=== PATIENT | female | born 1960 | race Caucasian/White ===

== ENCOUNTER → 2016-05-30 | Outpatient (CLI) | payer OTHER ==
[~2016-05-30] MED LIST: ATV2 PO; CYAN10004 PO; GABA600T PO; HYDR12.55 PO; LOSA50TA6 PO; NAPR1TAB9 PO; ONDA4TAB46 PO; POTA20TA13 PO; RIZA10TA18 PO
[2016-05-30 17:14] LABS: BLOOD UREA NITROGEN 11 mg/dl (7-18); BUN/CREATININE RATIO 12.5 (10-20); CALCIUM 8.7 mg/dl (8.5-10.1); CARBON DIOXIDE 28 mmol/L (21-32); CHLORIDE 106 mmol/L (98-107); CREATININE 0.85 mg/dl (0.60-1.20); GLUCOSE 129 mg/dl (70-99); POTASSIUM 3.6 mmol/L (3.5-5.1); SODIUM 143 mmol/L (136-145)
== END | disposition home or self-care (01) ==
LOC: C.LABBC 13:31
PROVIDERS: ATTEND Family Medicine
DX: E87.6 Hypokalemia (principal)

== ENCOUNTER 2016-11-06 08:42 | Emergency (ER) | payer OTHER ==
[~2016-11-06] VITALS: Ht 162.6 cm; Wt 57.3 kg
[~2016-11-06 08:42] MED LIST changes: -POTA20TA13 PO
[2016-11-06 08:45] VITALS: TEMP 36.3; Ht 162.6 cm; Wt 57.3 kg
[2016-11-06] MEDS ORDERED: KETOROLAC TROMETHAMINE 30 MG/ML VIAL IV STA (09:03)
[2016-11-06] MEDS ORDERED: SODIUM CHLORIDE 0.9% 1000ML 1,000 ML IV STA (09:03)
[2016-11-06] MEDS ORDERED: PROCHLORPERAZINE 5 MG/ML 2 ML VIAL IV STA (09:03)
[2016-11-06] MEDS ORDERED: DiphenhydrAMINE HCL 50 MG/ML VIAL IV STA (09:03)
--- NOTE | 2016-11-06 09:13 | EMERGENCY ROOM VISIT NOTE ---
History Report prepared by Batsheva: Tiffany Sherwood Under the Supervision of: Dr. Jaymie Aguiar M.D. First contact with patient: 08:49 Chief Complaint: HEADACHE Stated Complaint: MIGRAINE, VOMITING History of Present Illness The patient is a 56 year old female who presents to the Emergency Room with complaints of a worsening headache beginning early this morning. The patient states that she has a history of migraines. She is experiencing nausea and vomiting. The patient has had 3 episodes of vomiting today. She has been experiencing dizziness for the past month and is worsened when laying on her back or left side. She has been diagnosed with positional vertigo. The patient states that this migraine is worse that her typical migraine, she has not had one this severe in about a year. She is experiencing noise and light sensitivity. The patient states one of the differences with this migraine is pain not only in the back of her head but also the front. This is different than her usual symptoms. She states that she has been able to control her migraines with Aleve. The patient denies weakness to extremities. The patient has a follow up appointment with Dr. Perez - Neurology tomorrow. Source of History: patient Onset: early this morning Position: other (global) Quality: other (headache) Timing: worsening Associated Symptoms: + nausea, + vomiting, No weakness Note: The patient is experiencing noise sensitivity, light sensitivity, and dizziness. Review of Systems See HPI for pertinent positives & negatives. A total of 10 systems reviewed and were otherwise negative. Past Medical & Surgical Medical Problems: (1) Chest pain (2) Hypertension (3) Increased urinary frequency (4) Migraine (5) Migraine (6) Migraine (7) Migraine headache (8) Migraine headache (9) Pain (10) Sinus congestion (11) Sinus congestion (12) Sinus problem Surgical Problems: (1) History of cholecystectomy Family History Diabetes mellitus FH: cancer FH: gallbladder disease FH: heart disease Hypertension Kidney disease Kidney stones Social History Smoking Status: Never Smoker Alcohol Use: none Drug Use: none Marital Status: Housing Status: lives alone Occupation Status: employed Current/Historical Medications Scheduled Cyanocobalamin (Vitamin B-12 1000 Mcg), 1,000 MCG PO DAILY Gabapentin (Neurontin), 600 MG PO TID Hydrochlorothiazide (Hydrochlorothiazide), 12.5 MG PO QAM Lorazepam (Lorazepam), 2 MG PO HS Losartan Potassium (Cozaar), 50 MG PO QAM Potassium Chloride Microencaps (Potassium Chloride Er), 20 MEQ PO DAILY Scheduled PRN Naproxen (Aleve), 220 MG PO BID PRN for Headache Ondansetron Hcl (Zofran), 4 MG PO Q6 PRN for Nausea Rizatriptan Benzoate (Maxalt), 10 MG PO UD PRN for Migraine Allergies Coded Allergies: Diphenhydramine (Verified Allergy, Intermediate, HEART RACES, 11/06/16) Chocolate (Verified Allergy, Unknown, HIVES, 11/06/16) Tetracycline (Verified Allergy, Unknown, HIVES, 11/06/16) Codeine (Verified Adverse Reaction, Mild, HEADACHES, 11/06/16) Physical Exam Vital Signs Date Time Temp Pulse Resp B/P (MAP) Pulse Ox O2 Delivery O2 Flow Rate FiO2 11/06/16 12:08 62 20 130/80 98 11/06/16 09:51 68 15 140/90 97 Room Air 11/06/16 09:32 67 11/06/16 08:45 36.3 76 20 154/88 97 Room Air Physical Exam Vital signs reviewed. General: Well-appearing female, in no significant distress. HEENT: No meningeal signs. No scleral icterus, PERRLA, neck supple. Atraumatic. Cardiovascular: Regular rate and rhythm, no extra sounds. Pulmonary: Clear to auscultation bilaterally, normal work of breathing. Abdomen: Soft, nontender, nondistended, positive bowel sounds. Musculoskeletal: Atraumatic, no peripheral edema. Neurologic: Patient awake alert and oriented x 3, full strength in all 4 extremities. Cranial nerves 2 through 12 grossly intact. Skin: Warm, dry, no rash Medical Decision & Procedures Laboratory Results 11/06/16 09:25 Red Blood Count 4.33, Mean Corpuscular Volume 84.3, Mean Corpuscular Hemoglobin 29.3, Mean Corpuscular Hemoglobin Concent 34.8, Mean Platelet Volume 9.3, Neutrophils (%) (Auto) 72.0, Lymphocytes (%) (Auto) 20.9, Monocytes (%) (Auto) 5.0, Eosinophils (%) (Auto) 1.3, Basophils (%) (Auto) 0.5, Neutrophils # (Auto) 2.72, Lymphocytes # (Auto) 0.79, Monocytes # (Auto) 0.19, Eosinophils # (Auto) 0.05, Basophils # (Auto) 0.02 11/06/16 09:25 Test 11/06/16 09:25 White Blood Count 3.78 K/uL (4.8-10.8) Red Blood Count 4.33 M/uL (4.2-5.4) Hemoglobin 12.7 g/dL (12.0-16.0) Hematocrit 36.5 % (37-47) Mean Corpuscular Volume 84.3 fL (80-100) Mean Corpuscular Hemoglobin 29.3 pg (25-34) Mean Corpuscular Hemoglobin Concent 34.8 g/dl (32-36) Platelet Count 166 K/uL (130-400) Mean Platelet Volume 9.3 fL (7.4-10.4) Neutrophils (%) (Auto) 72.0 % Lymphocytes (%) (Auto) 20.9 % Monocytes (%) (Auto) 5.0 % Eosinophils (%) (Auto) 1.3 % Basophils (%) (Auto) 0.5 % Neutrophils # (Auto) 2.72 K/uL (1.4-6.5) Lymphocytes # (Auto) 0.79 K/uL (1.2-3.4) Monocytes # (Auto) 0.19 K/uL (0.11-0.59) Eosinophils # (Auto) 0.05 K/uL (0-0.5) Basophils # (Auto) 0.02 K/uL (0-0.2) RDW Standard Deviation 40.3 fL (36.4-46.3) RDW Coefficient of Variation 13.2 % (11.5-14.5) Immature Granulocyte % (Auto) 0.3 % Immature Granulocyte # (Auto) 0.01 K/uL (0.00-0.02) Anion Gap 6.0 mmol/L (3-11) Est Creatinine Clear Calc Drug Dose 74.6 ml/min Estimated GFR () 108.8 Estimated GFR (Non- 93.9 BUN/Creatinine Ratio 11.3 (10-20) Calcium Level 9.0 mg/dl (8.5-10.1) Total Bilirubin 0.6 mg/dl (0.2-1) Direct Bilirubin mg/dl (0-0.2) Aspartate Amino Transf (AST/SGOT) 25 U/L (15-37) Alanine Aminotransferase (ALT/SGPT) 22 U/L (12-78) Alkaline Phosphatase 50 U/L (45-117) Total Protein 7.2 gm/dl (6.4-8.2) Albumin 3.7 gm/dl (3.4-5.0) Chemistry Specimen Hemolysis Laboratory results per my review. Medications Administered Medications (Trade) Dose Ordered Sig/Rose Marie Route Start Time Stop Time Status Last Admin Dose Admin Sodium Chloride 1,000 ml @ 999 mls/hr Q1H1M STAT IV 11/06/16 09:03 11/06/16 10:03 DC 11/06/16 09:42 999 MLS/HR Prochlorperazine Edisylate (Compazine Inj) 10 mg NOW STAT IV 11/06/16 09:03 11/06/16 09:05 DC 11/06/16 09:36 10 MG Diphenhydramine HCl (Benadryl Inj) 25 mg NOW STAT IV 11/06/16 09:03 11/06/16 09:05 DC 11/06/16 09:35 25 MG Ketorolac Tromethamine (Toradol Inj) 30 mg NOW STAT IV 11/06/16 09:03 11/06/16 09:05 DC 11/06/16 09:35 30 MG Acetaminophen/ Hydrocodone Bitart ([place] 5/325 Tab) 1 tab NOW STAT PO 11/06/16 11:26 11/06/16 11:27 DC 11/06/16 11:34 1 TAB ED Course 0902: Past medical records reviewed. The patient was evaluated in room B6. A complete history and physical examination was performed. 0903: Toradol Inj 30 mg IV, Benadryl Inj 25 mg IV, Compazine Inj 10 mg IV, Sodium Chloride 1,000 ml @ 999 mls/hr IV. 1115: I checked on the patient and she is feeling better. 1126: L[place] 5/325 Tab 1 tab PO. 1156: Upon reevaluation, the patient appeared to have improvement of her symptoms. I discussed findings with her. She verbalized agreement of the treatment plan. She was discharged home. Medical Decision Differential diagnosis: Etiologies such as migraine headache, meningitis, sinusitis, CO exposure, ICH, SAH, infection, tumor, headache, sinus thrombosis, arterial dissection, as well as others were entertained. Medication Reconciliation: I attest that I have personally reviewed the patient' s current medication list. Blood Pressure Screening: Patient was found to have a slightly elevated blood pressure due to circumstances. I do not believe that the patient requires hypertension monitoring. This patient was evaluated and appeared to be in no significant distress. IV access was obtained and laboratory work was drawn. The patient was medicated with IV Toradol, IV Compazine and IV Benadryl. She was hydrated with normal saline solution. Patient feels as though this is a standard migraine for her. She did have some improvement with the above regimen. The patient ambulated to the bathroom and stated that her pain seemed to be returning. She was given one [place]orton tablet and discharged in care of her . She follows that she did go home and sleep. She is a follow-up appointment with neurology tomorrow. She will return to the ER for worsening of symptoms or any medical concerns. Impression Primary Impression: Migraine headache Scribe Attestation The scribe's documentation has been prepared under my direction and personally reviewed by me in its entirety. I confirm that the note above accurately reflects all work, treatment, procedures, and medical decision making performed by me. Departure Information Dispostion Home / Self-Care Referrals Tee Brown D.O.Int.Med. (PCP) Forms HOME CARE DOCUMENTATION FORM, IMPORTANT VISIT INFORMATION Patient Instructions My [facility] Additional Instructions Diagnosis: Migraine headache Continue your medications as prescribed. Drink plenty of fluids. Follow-up with neurology tomorrow as scheduled. Return to the ER for worsening of symptoms or any medical concerns.
[2016-11-06] MEDS ORDERED: POTA20TA13 PO (09:18)
[2016-11-06 09:39] LABS: BASO % 0.5 %; BASO ABS # 0.02 K/uL (0-0.2); COMPLETE YES; EOS % 1.3 %; HEMATOCRIT 36.5 % (37-47); IG% 0.3 %; LYMPH % 20.9 %; LYMPH ABS # 0.79 K/uL (1.2-3.4); MEAN CELL VOLUME 84.3 fL (80-100); MEAN CORPUSCULAR HEMOGLOBIN 29.3 pg (25-34); MEAN CORPUSCULAR HGB CONC 34.8 g/dl (32-36); MEAN PLATELET VOLUME 9.3 fL (7.4-10.4); PLATELET COUNT 166 K/uL (130-400); RED BLOOD COUNT 4.33 M/uL (4.2-5.4); WHITE BLOOD COUNT 3.78 K/uL (4.8-10.8)
[2016-11-06 10:07] LABS: ALKALINE PHOSPHATASE 50 U/L (45-117); ALT/SGPT 22 U/L (12-78); BLOOD UREA NITROGEN 8 mg/dl (7-18); BUN/CREATININE RATIO 11.3 (10-20); CARBON DIOXIDE 27 mmol/L (21-32); CHLORIDE 107 mmol/L (98-107); CREATININE 0.71 mg/dl (0.60-1.20); GLUCOSE 112 mg/dl (70-99)
[2016-11-06 10:30] LABS: AST/SGOT 25 U/L (15-37); POTASSIUM 3.7 mmol/L (3.5-5.1); SODIUM 144 mmol/L (136-145)
[2016-11-06] MEDS ORDERED: HYDROCODONE/ACETAMOPHEN 5/325MG TAB PO STA (11:26)
[2016-11-06 12:08] VITALS: BP 130/80; PULSE 62; O2SAT 98
[2017-03-20] MEDS ORDERED: ZNTT/150 PO (13:31)
== END 2016-11-06 12:08 | disposition home or self-care (01) ==
LOC: C.EDB 08:43
DX: G43.909 Migraine, unspecified, not intractable, without status migrainosus (principal); I10 Essential (primary) hypertension; Z83.3 Family history of diabetes mellitus; Z82.49 Family history of ischemic heart disease and other diseases of the circulatory system

== ENCOUNTER → 2017-03-26 | Outpatient (CLI) | payer OTHER ==
[~2017-03-26] MED LIST changes: -CYAN10004 PO; -NAPR1TAB9 PO; +POTA20TA13 PO; +ZNTT/150 PO
--- NOTE | 2017-03-26 15:19 | MAMMOGRAPHY REPORT ---
BILATERAL DIGITAL SCREENING MAMMOGRAM TOMOSYNTHESIS WITH CAD: 03/26/2017 CLINICAL HISTORY: Routine screening. Patient has no complaints. TECHNIQUE: Breast tomosynthesis in addition to standard 2D mammography was performed. Current study was also evaluated with a Computer Aided Detection (CAD) system. COMPARISON: Comparison is made to exams dated: 03/25/2016 mammogram, 10/04/2014 mammogram, 03/24/2015 mammogram, 04/06/2014 ultrasound, 04/06/2014 mammogram, and 03/18/2014 mammogram - [facility]. BREAST COMPOSITION: The tissue of both breasts is heterogeneously dense, which may obscure small mas ses. FINDINGS: No suspicious masses, calcifications, or areas of architectural distortion are noted in ei ther breast. There has been no significant interval change compared to prior exams. IMPRESSION: ACR BI-RADS CATEGORY 1: NEGATIVE There is no mammographic evidence of malignancy. A 1 year screening mammogram is recommended. The pa tient will receive written notification of the results. Approximately 10% of breast cancers are not detected with mammography. A negative mammographic report should not delay biopsy if a clinically suggestive mass is present. Aislinn Cardoza M.D. ah/:03/26/2017 07:37:11 Lining Cementer: Jenny SPAULDING(Stevan)(Maurisio), [facility] letter sent: Normal 1/2 BI-RADS Code: ACR BI-RADS Category 1: Negative
== END | disposition home or self-care (01) ==
LOC: C.MAMM 07:12
PROVIDERS: ATTEND Student in an Organized Health Care Education/Training Program
DX: Z12.31 Encounter for screening mammogram for malignant neoplasm of breast (principal)

== ENCOUNTER 2017-08-26 10:00 | Emergency (ER) | payer OTHER ==
[~2017-08-26] VITALS: Ht 162.6 cm; Wt 54.4 kg
[~2017-08-26 10:00] MED LIST changes: +RANI150T85 PO; -ZNTT/150 PO
[2017-08-26 10:13] VITALS: TEMP 36.9; Ht 162.6 cm; Wt 54.4 kg
[2017-08-26] MEDS ORDERED: DEXAMETHASONE INJ 10 MG in SYRINGE 0 ML IV STA (10:51)
[2017-08-26] MEDS ORDERED: SODIUM CHLORIDE 0.9% 1000ML 1,000 ML IV STA (10:51)
[2017-08-26] MEDS ORDERED: KETOROLAC TROMETHAMINE 30 MG/ML VIAL IV STA (10:51)
[2017-08-26] MEDS ORDERED: PROMETHAZINE HCL INJ 12.5 MG in SODIUM CHLORIDE 0.9% 50ML 50 ML IV STA (10:51)
[2017-08-26] MEDS ORDERED: AMOX875T PO (10:53)
[2017-08-26 11:12] LABS: BASO % 0.2 %; BASO ABS # 0.01 K/uL (0-0.2); EOS % 0.2 %; EOS ABS # 0.01 K/uL (0-0.5); HEMATOCRIT 40.4 % (37-47); HEMOGLOBIN 14.6 g/dL (12.0-16.0); IG# 0.01 K/uL (0.00-0.02); LYMPH % 9.6 %; MEAN CELL VOLUME 82.4 fL (80-100); MEAN CORPUSCULAR HEMOGLOBIN 29.8 pg (25-34); MEAN CORPUSCULAR HGB CONC 36.1 g/dl (32-36); MEAN PLATELET VOLUME 9.3 fL (7.4-10.4); MONO % 2.6 %; MONO ABS # 0.16 K/uL (0.11-0.59); NEUT % 87.2 %; NEUT ABS # 5.43 K/uL (1.4-6.5); PLATELET COUNT 183 K/uL (130-400); RED CELL DISTRIBUTION WIDTH CV 13.3 % (11.5-14.5); RED CELL DISTRIBUTION WIDTH SD 39.7 fL (36.4-46.3); WHITE BLOOD COUNT 6.22 K/uL (4.8-10.8)
[2017-08-26 11:38] LABS: CALCIUM 9.2 mg/dl (8.5-10.1); CREATININE 0.73 mg/dl (0.60-1.20); POTASSIUM 3.7 mmol/L (3.5-5.1)
[2017-08-26] MEDS ORDERED: MoRPHine SULFATE 4 MG/ML 1 ML CARP\\VIAL IV STA (12:12)
--- NOTE | 2017-08-26 13:02 | EMERGENCY ROOM VISIT NOTE ---
History First contact with patient: 10:27 Chief Complaint: HEADACHE Stated Complaint: MIGRAINE,VOMITING History of Present Illness The patient is a 57 year old female who presents to the Emergency Room via private vehicle with complaints of "migraine, vomiting". The patient states that she has a history of migraines, and began with one last night. She states that she has vomited because of this. She took Maxalt 3:00 with minimal relief. She has been vomiting and trying to take other medications without success. She denies any change in vision, numbness, paresthesias, tingling. She rates the overall pain as an 8/10. She notes this is the same headache she has had in the past just worse. She sees her neurologist, Dr. Perez but they cannot see her today. She denies any history of stroke or [place]. Review of Systems A complete 10-point Review of Systems was discussed with the patient, with pertinent positives and negatives listed in the History of Present Illness. All remaining Review of Systems questions can be considered negative unless otherwise specified. Past Medical/Surgical History Medical Problems: (1) Chest pain (2) Hypertension (3) Increased urinary frequency (4) Migraine (5) Migraine (6) Migraine (7) Migraine headache (8) Migraine headache (9) Pain (10) Sinus congestion (11) Sinus congestion (12) Sinus problem Surgical Problems: (1) History of cholecystectomy Family History Diabetes mellitus FH: cancer FH: gallbladder disease FH: heart disease Hypertension Kidney disease Kidney stones Social History Smoking Status: Never Smoker Alcohol Use: none Drug Use: none Marital Status: Housing Status: lives alone Occupation Status: employed Current/Historical Medications Scheduled Amoxicillin & Pot Clavulanate (Augmentin 875-125 mg), 1 TAB PO BID Gabapentin (Neurontin), 600 MG PO TID Lorazepam (Lorazepam), 2 MG PO HS Losartan Potassium (Cozaar), 25 MG PO QAM Ranitidine (Zantac), 150 MG PO BID Scheduled PRN Ondansetron Hcl (Zofran), 4 MG PO Q6 PRN for Nausea Rizatriptan Benzoate (Maxalt), 10 MG PO UD PRN for Migraine Physical Exam Vital Signs Date Time Temp Pulse Resp B/P (MAP) Pulse Ox O2 Delivery O2 Flow Rate FiO2 08/26/17 13:14 73 16 138/80 97 08/26/17 10:13 36.9 95 18 152/93 96 Room Air Physical Exam VITAL SIGNS - Vital signs and nursing notes were reviewed. Stable. GENERAL - 57-year-old female appearing her stated age who is in no acute distress. Communicates well with provider and answers questions appropriately. SKIN - Without rashes. No meningeal or petechial rash per HEAD - NC/AT. EYES - PERRL with EOMI bilaterally. Sclera anicteric. EARS - No deformities of external structures noted on gross examination bilaterally. External auditory canals without discharge or otorrhea. Tympanic membranes pearly gordon without retraction or bulging. No fluid or purulent material visualized behind the TM. Handle of malleus, umbo, cone of light, pars tensa/flaccid all easily visualized. NOSE - Midline and without cyanosis. No epistaxis or purulent drainage noted. MOUTH/OROPHARYNX - Without perioral cyanosis. Buccal mucosa pink and moist and without leukoplakia. Tongue midline with equal elevation of palate bilaterally. No tonsillar hypertrophy, erythema, or exudates noted. Fair dentition noted. NECK - Neck with FROM. Supple to palpation. No lymphadenopathy noted. No nuchal rigidity. LUNGS - Chest wall symmetric without accessory muscle use, intercostals retractions, or central cyanosis. Normal vesicular breath sounds CTA B/L. No wheezes, rales, or rhonchi appreciated. CARDIAC - RRR with S1/S2. No murmur, rubs, or gallops appreciated. EXTREMITIES - No clubbing or peripheral cyanosis. +5/5 strength noted in UE/LE bilaterally. NEUROLOGIC - Cranial nerves II through XII grossly intact. Sensory intact to light touch throughout. PSYCH - A&O, and cooperates fully with examiner. Pt is very pleasant and interacts well with examiner. Medical Decision & Procedures Laboratory Results 08/26/17 11:03 Red Blood Count 4.90, Mean Corpuscular Volume 82.4, Mean Corpuscular Hemoglobin 29.8, Mean Corpuscular Hemoglobin Concent 36.1, Mean Platelet Volume 9.3, Neutrophils (%) (Auto) 87.2, Lymphocytes (%) (Auto) 9.6, Monocytes (%) (Auto) 2.6, Eosinophils (%) (Auto) 0.2, Basophils (%) (Auto) 0.2, Neutrophils # (Auto) 5.43, Lymphocytes # (Auto) 0.60, Monocytes # (Auto) 0.16, Eosinophils # (Auto) 0.01, Basophils # (Auto) 0.01 08/26/17 11:03 Test 08/26/17 11:03 White Blood Count 6.22 K/uL (4.8-10.8) Red Blood Count 4.90 M/uL (4.2-5.4) Hemoglobin 14.6 g/dL (12.0-16.0) Hematocrit 40.4 % (37-47) Mean Corpuscular Volume 82.4 fL (80-100) Mean Corpuscular Hemoglobin 29.8 pg (25-34) Mean Corpuscular Hemoglobin Concent 36.1 g/dl (32-36) Platelet Count 183 K/uL (130-400) Mean Platelet Volume 9.3 fL (7.4-10.4) Neutrophils (%) (Auto) 87.2 % Lymphocytes (%) (Auto) 9.6 % Monocytes (%) (Auto) 2.6 % Eosinophils (%) (Auto) 0.2 % Basophils (%) (Auto) 0.2 % Neutrophils # (Auto) 5.43 K/uL (1.4-6.5) Lymphocytes # (Auto) 0.60 K/uL (1.2-3.4) Monocytes # (Auto) 0.16 K/uL (0.11-0.59) Eosinophils # (Auto) 0.01 K/uL (0-0.5) Basophils # (Auto) 0.01 K/uL (0-0.2) RDW Standard Deviation 39.7 fL (36.4-46.3) RDW Coefficient of Variation 13.3 % (11.5-14.5) Immature Granulocyte % (Auto) 0.2 % Immature Granulocyte # (Auto) 0.01 K/uL (0.00-0.02) Anion Gap 5.0 mmol/L (3-11) Est Creatinine Clear Calc Drug Dose 71.3 ml/min Estimated GFR () 104.5 Estimated GFR (Non- 90.1 BUN/Creatinine Ratio 15.1 (10-20) Calcium Level 9.2 mg/dl (8.5-10.1) Medications Administered Medications (Trade) Dose Ordered Sig/Rose Marie Route Start Time Stop Time Status Last Admin Dose Admin Ketorolac Tromethamine (Toradol Inj) 30 mg NOW STAT IV 08/26/17 10:51 08/26/17 10:52 DC 08/26/17 11:21 30 MG Promethazine HCl 12.5 mg/Sodium Chloride 50.5 ml @ 204 mls/hr NOW STAT IV 08/26/17 10:51 08/26/17 11:05 DC 08/26/17 11:22 204 MLS/HR Dexamethasone Sodium Phosphate 10 mg/Syringe 2.5 ml @ 1 mls/min NOW STAT IV 08/26/17 10:51 08/26/17 10:53 DC 08/26/17 10:40 1 MLS/MIN Sodium Chloride 1,000 ml @ 999 mls/hr Q1H1M STAT IV 08/26/17 10:51 08/26/17 11:51 DC 08/26/17 11:28 999 MLS/HR Morphine Sulfate (MoRPHine SULFATE INJ) 4 mg NOW STAT IV 08/26/17 12:12 08/26/17 12:14 DC 08/26/17 12:26 4 MG Medical Decision Patient was seen and evaluated as above in room C 10. Review was performed of nursing notes and vital signs. After obtaining a thorough history and physical examination the above work up was performed. CBC and PRP reveal no emergent process. Most recent MRI was reviewed. IV access was established. She was given Toradol, Phenergan, Decadron and fluids. She was reevaluated and feeling slightly better. She was then given 4 mg of morphine IV. She was feeling much better. The narcotic was chosen secondary to the previous medications not providing much relief as well as her underlying allergies. This was also chosen after reviewing her previous visits. She is to call her family doctor/ neurologist to schedule follow-up. She is to return with worsening. She was offered lumbar puncture and declined. I do not suspect meningitis or encephalitis. I suspect this is likely an acute exacerbation of her chronic underlying migraine. The patient was educated upon management, had questions answered prior to discharge, and was discharged home in good condition. In the evaluation and treatment of this patient, the following differential diagnoses were considered: Migraine Headache, Intracranial Hemorrhage, Subdural Hematoma, Subarachnoid Hemorrhage, Cerebral Aneurysm, Temporal/Giant Cell Arteritis, Tension Headache, Meningitis, Encephalitis, or Hydrocephalus. Impression Primary Impression: Headache Departure Information Dispostion Home / Self-Care Condition GOOD Referrals Gilma Lan D.O. (PCP) Patient Instructions My [facility] Additional Instructions You have been treated in the Emergency Department for a Headache. You have received pain medicine in the emergency department which impairs your ability to operate a vehicle. It is illegal for you to drive after receiving these medicines. Please continue your regular medications. You should relax in a quiet, dark place for the rest of the day. Avoid any possible triggers including: cigarette smoke, caffeine, nicotine, chocolate, wine, beer, loud noises or music, or bright lights. You should schedule a follow-up appointment in 2-3 days with your Primary Care Provider or established Neurologist for further evaluation and treatment of your Headache. Return to the Emergency Department if your current symptoms worsen despite treatment course outlined above, or if you develop any of the following symptoms : intractable pain despite aforementioned treatment course, visual disturbances , loss of vision, unilateral weakness or facial drooping, slurring of speech, loss of coordination, or loss of consciousness.
[2017-08-26 13:14] VITALS: BP 138/80; PULSE 73; O2SAT 97
== END 2017-08-26 13:15 | disposition home or self-care (01) ==
LOC: C.EDB 10:01 → C.EDC 13:15
DX: R51 Headache (principal); I10 Essential (primary) hypertension

== ENCOUNTER 2018-06-12 12:15 | Inpatient (IN) ==
--- NOTE | 2018-06-11 08:35 | Anesthesiology Consultation ---
Date of Service June 11, 2018 Assessment & Plan (1) Encounter for pre-operative examination: Chart Review Chart Review: Acceptable Risk for Surgery and Patient NOT seen in Pre Admission Testing History Surgery Operation Date: 06/12/18 07:00 Proposed Procedures p Left Tibial Plateau Fracture Open Reduction Internal Fixation - Josh Domínguez DO Height/Weight Height: 5 ft 4 in Weight: 53.5 kg (BMI 20.2) Allergies Allergy/AdvReac Type Severity Reaction Status Date / Time diphenhydramine Allergy Intermediate HEART RACES Verified 06/05/18 09:33 chocolate flavor Allergy Unknown HIVES Verified 06/05/18 09:33 oxycodone Allergy Unknown hives Verified 06/06/18 10:26 tetracycline Allergy Unknown HIVES Verified 06/05/18 09:33 codeine AdvReac Mild HEADACHES Verified 06/05/18 09:33 Medications Home Medications Medication Instructions Recorded Confirmed Last Taken gabapentin 600 mg PO TID 06/05/18 06/05/18 06/05/18 hydrocodone-acetaminophen [[place]] 1 tab PO Q6H PRN #30 tab 06/05/18 Unknown lorazepam 2 mg PO HS 06/05/18 06/05/18 06/04/18 losartan [Cozaar] 25 mg PO QAM 06/05/18 06/05/18 06/05/18 ondansetron HCl 4 mg PO Q6 PRN 06/05/18 06/05/18 Unknown ranitidine HCl 150 mg PO DAILY PRN 06/05/18 06/05/18 Unknown rizatriptan 10 mg PO UD PRN 06/05/18 06/05/18 Unknown Past Medical History Medical History Osteoporosis (Chronic) History of benign schwannoma (Resolved) s/p b/l brachial plexus surgery for removal Insomnia (Chronic) Hypertension (Chronic) Migraine (Chronic) Ulnar nerve disease (Resolved) Tibial plateau fracture From slip and fall on ice 06/05. Seen at [facility] ED. 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 Nonspecific ST abnormality. Laboratory Results Laboratory Tests 06/06/18 06/06/18 06/06/18 07:10 07:10 07:10 WBC 4.85 Hgb 12.2 Hct 35.2 L Plt Count 147 PT 11.4 INR 1.1 APTT 26.6 Sodium 138 Potassium 3.4 L Chloride 103 Carbon Dioxide 27 BUN 13 Creatinine 0.67 Glucose 88
[~2018-06-12 12:15] MED LIST changes: -ATV2 PO; +CEFAZOLIN 2000MG 2,000 MG/15 ML SYR IV SCH; -GABA600T PO; -HYDR12.55 PO; -LOSA50TA6 PO; +LR 15ML/HR IV SCH; +LR 60ML/HR IV SCH; -ONDA4TAB46 PO; -POTA20TA13 PO; -RANI150T85 PO; -RIZA10TA18 PO
--- NOTE | 2018-06-12 13:29 | History & Physical Bridge Note ---
Date of Service June 12, 2018 History & Physical Bridge Note I have examined the patient, reviewed the History & Physical and in the interval since the performance of the History & Physical I have noted the following changes of clinical significance: no changes noted
--- NOTE | 2018-06-12 13:35 | History & Physical Report ---
Date of Service June 12, 2018 Assessment & Plan (1) Fracture of tibial plateau, closed: We will proceed with open reduction internal fixation of the left tibial plateau. Postoperatively she will be placed in a knee immobilizer and kept overnight for medical observation. She will be seen by physical therapy tomorrow. I will put her on aspirin for DVT prophylaxis. She will likely be nonweightbearing for close to 3 months. Encounter type: initial encounter Fracture healing: Laterality : left Qualified Code(s): S82.142A - Displaced bicondylar fracture of left tibia, initial encounter for closed fracture Present on Admission?: Yes History of Present Illness Primary Care Provider: Gilma Summers is a pleasant 58-year-old female who slipped and fell on the ice about a week ago. She had a twisting injury to her left leg. She went to the emergency room and radiographs demonstrated a depressed left lateral tibial plateau fracture. She was placed in a splint in the emergency room presented my office. He got a CAT scan of her left leg which showed a centimeter of depression. After discussions in the office she elected to proceed with a open reduction and internal fixation of the left proximal tibia Allergies Allergy/AdvReac Type Severity Reaction Status Date / Time chocolate flavor Allergy Severe HIVES Verified 06/12/18 12:55 diphenhydramine Allergy Intermediate CHEST Verified 06/12/18 12:55 PAIN, TACHYCARDIA oxycodone Allergy Intermediate hives Verified 06/12/18 12:55 tetracycline Allergy Mild HIVES Verified 06/12/18 12:55 acetaminophen [From [facility]] AdvReac Intermediate ITCHING, Verified 06/12/18 12:55 WELTS hydrocodone [From [facility]] AdvReac Intermediate ITCHING, Verified 06/12/18 12:55 WELTS codeine AdvReac Mild HEADACHES Verified 06/12/18 12:55 latex AdvReac Mild redness/itching/localized Verified 06/12/18 12:55 swelling Home Medications Home Medications Medication Instructions Recorded Confirmed Type gabapentin 600 mg PO TID 06/05/18 06/12/18 History hydrocodone-acetaminophen [[facility]] 1 tab PO Q6H PRN #30 tab 06/05/18 06/12/18 Rx lorazepam 2 mg PO HS 06/05/18 06/12/18 History losartan [Cozaar] 25 mg PO QAM 06/05/18 06/12/18 History ondansetron HCl 4 mg PO Q6 PRN 06/05/18 06/12/18 History ranitidine HCl 150 mg PO DAILY PRN 06/05/18 06/12/18 History rizatriptan 10 mg PO UD PRN 06/05/18 06/12/18 History Past Med/Surg History Surgical History History of appendectomy (Resolved) History of total hysterectomy (Resolved) History of decompression of ulnar nerve (Chronic) x 3 History of cholecystectomy (Resolved) History of surgery 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 Other Information That Helps Us Care for You: No Feels Safe at Home: Yes Safety Concerns: Feels Safe At This Time Smoking Status: Never smoker Do You Dip or Chew Tobacco: No Second Hand Exposure: No Tobacco Cessation Education Requested by Patient: No Hx Alcohol Use: No Hx Substance Use: No Beliefs That Will Affect Care: None Preferred Language: Yi Communication Ability: Effective Camp Advisor Required: No Review of Systems All systems reviewed & are unremarkable except as noted in HPI & below Physical Exam 2 Vital Signs (Past 24 Hours): Last Vital Signs Temp 36.8 C 06/12/18 12:35 Pulse 95 H 06/12/18 12:35 Resp 16 06/12/18 12:35 BP 168/97 H 06/12/18 12:35 Pulse Ox 96 06/12/18 12:35 Musculoskeletal: On physical examination of the left leg she does have a slight valgus deformity. She is a little bit of instability with varus stress testing. She is active dorsiflexion and plantarflexion of her left ankle. Sensations intact. Results & Data Diagnostic Findings X-rays of the left leg do show a deep depressed left lateral tibial plateau fracture. There is a slight valgus angulation. CT scan of the left leg shows a centimeter of depression mostly in the central aspect of the lateral tibial plateau. Medications Administered Lactated Ringer's (Lr) 1,000 mls @ 60 mls/hr IV .[id number] ELLEN Stop: 06/12/18 22:39 Last Admin: 06/12/18 13:16 Dose: 60 mls/hr Lactated Ringer's (Lr) 1,000 mls @ 15 mls/hr IV .Q24H [facility] Stop: 06/13/18 05:59 Last Admin: 06/12/18 13:16 Dose: Not Given
[2018-06-12] MEDS ORDERED: MIDAZOLAM HCL 1 MG/ML 2ML VIAL ONE (14:13)
[2018-06-12] MEDS ORDERED: fentaNYL citrate 100 MCG/2 ML VIAL ONE (14:13)
[2018-06-12] MEDS ORDERED: BACITRACIN INJ 50,000 UNIT VIAL ONE (14:35)
[2018-06-12] MEDS ORDERED: BUPIVACAINE/EPINEPHRINE 0.5% MPF 1:200,000 30 ML VIAL ONE ×2 (14:35→15:11)
[2018-06-12] MEDS ORDERED: DEXAMETHASONE SOD INJ 4 MG/ML VIAL ONE (15:12)
[2018-06-12] MEDS ORDERED: BUPIVACAINE 0.25% 30 ML VIAL ONE (15:48)
[2018-06-12] MEDS ORDERED: ONDANSETRON INJ 2 MG/ML 2 ML VIAL ONE (16:16)
[2018-06-12] MEDS ORDERED: LIDOCAINE HCL 2% 2 ML VIAL/AMP(20MG/ML) INFIL ONE (16:16)
[2018-06-12] MEDS ORDERED: PROPOFOL IV EMULSION 10 MG/ML 20 ML VIAL IV ONE (16:16)
[2018-06-12] MEDS ORDERED: ONDANSETRON INJ 2 MG/ML 2 ML VIAL IV PRN (16:33)
[2018-06-12] MEDS ORDERED: ePHEDrine sulfate 50 MG/ML AMP IV PRN (16:33)
[2018-06-12] MEDS ORDERED: PROMETHAZINE HCL 6.25 MG in SODIUM CHLORIDE 0.9% 50 ML IV PRN (16:33)
[2018-06-12] MEDS ORDERED: ATROPINE SULFATE 0.1 MG/ML 10ML SYR IV PRN (16:33)
[2018-06-12] MEDS ORDERED: PHENYLEPHRINE HCL 10 MG/ML VIAL ONE (16:37)
[2018-06-12] MEDS ORDERED: KETOROLAC 30 MG/ML VIAL ONE (16:56)
--- NOTE | 2018-06-12 17:08 | Fluoroscopy Report ---
FL knee LT 1 or 2V CLINICAL HISTORY: LEFT TIBIAL PLATEAU FX ORIF COMPARISON STUDY: 06/05/2018 FLUOROSCOPY TIME: 40 seconds NUMBER OF FLUOROSCOPIC IMAGES: 3 FINDINGS: Findings consistent with plate and pin fixation of the proximal tibia. Bony alignment appea rs anatomic. IMPRESSION: Image intensifier assistance for open reduction internal fixation of the tibial fracture. Alignment is anatomic. The above report was generated using voice recognition software. It may contain grammatical, syntax or spelling errors. Electronically signed by: Landen Washington M.D. 06/12/2018 5:07 PM
--- NOTE | 2018-06-12 17:14 | Operative Report ---
Post Operative Report Pre & Post Diagnosis Operation Date: 06/12/18 07:00 Pre-Op Diagnosis: Left Tibial Plateau Fracture Post-Op Diagnosis: Left Tibial Plateau Fracture Procedure Operation Date: 06/12/18 07:00 Actual Procedures p Left Tibial Plateau Fracture Open Reduction Internal Fixation with bone grafting (Left) - Josh Domínguez DO Surgeon Josh Domínguez DO Cruise Director Josh Farias PAC Estimated Blood Loss 20 Findings Consistent with Post-Op Diagnosis Specimens None Complications none Disposition Disposition: Recovery Room Indications Melina is a pleasant 58-year-old female who fell on the ice about a week ago. She had a twisting injury to her knee. She went to the emergency room and radiographs demonstrated a depressed tibial plateau fracture. After discussions in the office she elected to proceed with open reduction and internal fixation. Description of Procedure On June 12, 2018 she arrived at [facility] for the above procedure. She was seen in the preoperative holding area and the operative extremity was identified and signed. She was given a preoperative antibiotic and a regional anesthetic. She was then taken back to the operating room and laid on table in supine position. She was put on general anesthesia. The left knee was prepped and draped in sterile fashion. A timeout was done. The patient and the operative extremity was properly identified. A lateral curvilinear incision was made over the fracture site. Dissection was taken down through the fascia and the anterior compartment was elevated off the tibial plateau. An arthrotomy was done. A large hemarthrosis was evacuated. The lateral meniscus was elevated superiorly and I was able to get a good look at the fracture. The plateau was depressed about 1.5 cm. An elevator was used to elevate the tibial plateau anatomically. I was able to visualize anatomic reduction. The defect was then packed with cancellus chips and DBX putty. This gave good structural support. A Synthes 4-hole proximal tibial locking plate was then applied. Screws were placed both proximally and distally. The length of the screws were checked under fluoroscopy. I was happy with the overall stability of the construct. Final fluoroscopic images showed anatomic alignment. The wound was then irrigated and surrounding soft tissues were injected with 30 cc of Marcaine. The fascia was closed with #1 Vicryl. Skin was closed with 2-0 Vicryl and kathryn. She was then placed in a soft compressive dressing and a knee immobilizer. She was then extubated and transferred to [facility]. She was taken to the postanesthesia care unit in stable condition. She tolerated the procedure well. I attest to the content of the Intraoperative Record and any orders documented therein. Any exceptions are noted below.
[2018-06-12] MEDS: fentaNYL citrate 100 MCG/2 ML VIAL IV PRN ×4 (17:32→17:50)
[2018-06-12] MEDS: HYDROmorphone INJ 2 MG/ML SYR/VIAL IV PRN ×2 (18:07→18:12)
--- NOTE | 2018-06-12 18:09 | Anesthesiology Progress Note ---
Date of Service June 12, 2018 Anesthesia Post Procedure Vital Signs Vital Signs: Temp Pulse Pulse Resp BP BP Pulse Ox 06/12/18 18:00 70 9 L 161/96 H 99 06/12/18 17:56 62 7 L 152/82 H 99 06/12/18 17:55 73 12 99 06/12/18 17:51 84 15 161/83 H 99 06/12/18 17:50 82 20 99 06/12/18 17:46 73 13 153/86 H 98 06/12/18 17:45 75 9 L 99 06/12/18 17:41 75 7 L 161/93 H 99 06/12/18 17:40 77 14 100 06/12/18 17:36 76 12 162/89 H 100 06/12/18 17:35 79 18 100 06/12/18 17:31 83 19 158/88 H 99 06/12/18 17:30 80 17 100 06/12/18 17:26 96 H 13 103/88 100 06/12/18 17:25 94 H 15 100 06/12/18 17:22 37.2 C 104 H 89 17 150/92 H 150/92 H 98 06/12/18 12:35 36.8 C 95 H 16 168/97 H 96 Pain Intensity Left Knee: Pain Intensity: 9 Notes Mental Status: alert / awake / arousable Patient Amnestic to Procedure: Yes Nausea / Vomiting: adequately controlled Pain: adequately controlled Airway Patency, RR, SpO2: stable & adequate BP & HR: stable & adequate Hydration State: stable & adequate Anesthetic Complications: no major complications apparent
[2018-06-12] MEDS ORDERED: MAGNESIUM HYDROXIDE SUSP 30 ML UDC PO PRN (18:48)
[2018-06-12] MEDS ORDERED: METOCLOPRAMIDE HCL INJ 5 MG/ML 2 ML VIAL IV PRN (18:48)
[2018-06-12] MEDS ORDERED: RIZATRIPTAN BENZOATE 10 MG TAB PO PRN (18:48)
[2018-06-12] MEDS ORDERED: NALOXONE HCL 0.4 MG/1 ML VIAL/CARP IV PRN (18:48)
[2018-06-12] MEDS ORDERED: HYDROmorphone INJ 0.5 MG/0.5 ML SYR IV PRN (18:48)
[2018-06-12] MEDS ORDERED: BISACODYL 10 MG SUPP PR PRN (18:48)
[2018-06-12] MEDS ORDERED: SODIUM CHLORIDE 0.9% 1000ML 1,000 ML IV SCH (18:48)
[2018-06-12] MEDS: ONDANSETRON INJ 2 MG/ML 2 ML VIAL IV PRN (19:32)
[2018-06-12] MEDS: KETOROLAC 30 MG/ML VIAL IV SCH (20:26)
[2018-06-12] MEDS: DOCUSATE SODIUM 100 MG CAP PO SCH (20:31)
[2018-06-12] MEDS: SENNA 8.6 MG TAB PO SCH (20:31)
[2018-06-12] MEDS: LORazepam 2 MG TAB PO SCH (21:15)
[2018-06-12] MEDS: ACETAMINOPHEN 500 MG TAB PO SCH (21:15)
[2018-06-12] MEDS: GABAPENTIN 600 MG TAB PO SCH (21:15)
[2018-06-12] MEDS: ASPIRIN 81 MG ECTAB PO SCH (21:15)
[2018-06-12] MEDS: CEFAZOLIN 1000MG 1,000 MG/7.5 ML SYR IV SCH (22:37)
[2018-06-12] MEDS: TRAMADOL HCL 50 MG TABLET PO PRN (23:03)
[2018-06-13] MEDS: KETOROLAC 30 MG/ML VIAL IV SCH ×4 (02:02→20:24)
[2018-06-13] MEDS: ACETAMINOPHEN 500 MG TAB PO SCH ×3 (06:09→22:13)
[2018-06-13] MEDS: CEFAZOLIN 1000MG 1,000 MG/7.5 ML SYR IV SCH (06:10)
--- NOTE | 2018-06-13 07:03 | Orthopedic Progress Note ---
Date of Service June 13, 2018 Assessment & Plan (1) Fracture of tibial plateau, closed: Overall she is doing fairly well. She had a little bit of pain which is to be expected. She is a little concerned about discharge. She does live by herself. She was having home health come to the house but she was inquiring about a brief stay at [facility] rehab. I told her that would depend on case management and the insurance company. She will be nonweightbearing for close to 3 months. She can be discharged home later today if home health is set up and that is the route she plans to go. If she plans to go to a rehab facility she can be discharged as soon as a bed is available. We will keep her on tramadol for pain control and aspirin for DVT prophylaxis. She will be seen by physical therapy today. Present on Admission?: Yes Cheyanne Summers was seen and examined at bedside this morning. Overall she is doing fairly well. She is having some soreness in the leg but is not too bad. She was able to get some sleep last night. Has no complaints. Physical Exam 2 Vital Signs (Past 24 Hours): Last Vital Signs Temp 36.7 C 06/13/18 03:53 Pulse 82 06/13/18 03:53 Resp 16 06/13/18 03:53 BP 109/67 06/13/18 03:53 Pulse Ox 97 06/13/18 03:53 Musculoskeletal: On physical examination of the left knee, the dressing is clean and dry and the knee immobilizer is in place. She does have active dorsiflexion plantarflexion of her left ankle. Sensation is intact. _ (1) Fracture of tibial plateau, closed Encounter type: initial encounter Fracture healing: Laterality: left Qualified Code(s): S82.142A - Displaced bicondylar fracture of left tibia, initial encounter for closed fracture
--- NOTE | 2018-06-13 08:19 | Anesthesiology Progress Note ---
Date of Service June 13, 2018 Anesthesia Post Procedure Vital Signs Vital Signs: Temp Pulse Pulse Resp BP BP Pulse Ox 06/13/18 07:11 36.8 C 73 16 120/69 95 06/13/18 03:53 36.7 C 82 16 109/67 97 06/12/18 23:00 36.4 C L 73 17 144/72 H 96 06/12/18 21:41 36.5 C 81 18 150/80 H 98 06/12/18 20:43 36.4 C L 68 16 141/75 H 93 06/12/18 19:50 36.4 C L 73 18 156/87 H 93 06/12/18 19:19 36.7 C 65 18 155/80 H 96 06/12/18 18:50 36.7 C 75 20 159/91 H 98 06/12/18 18:28 37.6 C H 68 15 153/91 H 100 06/12/18 18:00 70 9 L 161/96 H 99 06/12/18 17:56 62 7 L 152/82 H 99 06/12/18 17:55 73 12 99 06/12/18 17:51 84 15 161/83 H 99 06/12/18 17:50 82 20 99 06/12/18 17:46 73 13 153/86 H 98 06/12/18 17:45 75 9 L 99 06/12/18 17:41 75 7 L 161/93 H 99 06/12/18 17:40 77 14 100 06/12/18 17:36 76 12 162/89 H 100 06/12/18 17:35 79 18 100 06/12/18 17:31 83 19 158/88 H 99 06/12/18 17:30 80 17 100 06/12/18 17:26 96 H 13 103/88 100 06/12/18 17:25 94 H 15 100 06/12/18 17:22 37.2 C 104 H 89 17 150/92 H 150/92 H 98 06/12/18 12:35 36.8 C 95 H 16 168/97 H 96 Pain Intensity Left Knee: Pain Intensity: 2 Notes Mental Status: alert / awake / arousable and participated in evaluation Patient Amnestic to Procedure: Yes Nausea / Vomiting: adequately controlled Pain: adequately controlled Airway Patency, RR, SpO2: stable & adequate BP & HR: stable & adequate Hydration State: stable & adequate Anesthetic Complications: no major complications apparent and Pt Satisfied with anesthetic care
[2018-06-13] MEDS: DOCUSATE SODIUM 100 MG CAP PO SCH ×2 (08:50→20:27)
[2018-06-13] MEDS: LOSARTAN POTASSIUM 25 MG TAB PO SCH (08:51)
[2018-06-13] MEDS: ASPIRIN 81 MG ECTAB PO SCH ×2 (08:51→20:27)
[2018-06-13] MEDS: MULTIVITAMIN TAB PO SCH (08:51)
[2018-06-13] MEDS: GABAPENTIN 600 MG TAB PO SCH ×3 (08:52→20:28)
[2018-06-13] MEDS: SENNA 8.6 MG TAB PO SCH (20:28)
[2018-06-13] MEDS: LORazepam 2 MG TAB PO SCH (22:11)
[2018-06-13] MEDS: TRAMADOL HCL 50 MG TABLET PO PRN (22:11)
[2018-06-13] MEDS: ONDANSETRON INJ 2 MG/ML 2 ML VIAL IV PRN (22:13)
[2018-06-14] MEDS: KETOROLAC 30 MG/ML VIAL IV SCH ×2 (02:19→08:55)
[2018-06-14] MEDS: ACETAMINOPHEN 500 MG TAB PO SCH (07:09)
[2018-06-14] MEDS: DOCUSATE SODIUM 100 MG CAP PO SCH (08:55)
[2018-06-14] MEDS: LOSARTAN POTASSIUM 25 MG TAB PO SCH (08:55)
[2018-06-14] MEDS: MULTIVITAMIN TAB PO SCH (08:55)
[2018-06-14] MEDS: ASPIRIN 81 MG ECTAB PO SCH (08:55)
[2018-06-14] MEDS: GABAPENTIN 600 MG TAB PO SCH (08:56)
--- NOTE | 2018-06-14 09:17 | Orthopedic Progress Note ---
Date of Service June 14, 2018 Assessment & Plan (1) Fracture of tibial plateau, closed: Overall she is doing fairly well. She is been working well with physical therapy. I am going to keep her on aspirin twice a day for DVT prophylaxis and tramadol for pain control. We will discharge her to home later today with home health. She will follow-up with orthopedics in 2 weeks. Present on Admission?: Yes Subjective Melina was seen and examined at bedside this morning. Overall she is doing fairly well. She was able to work well with physical therapy yesterday. She is been compliant with the nonweightbearing restrictions. She is having a little bit more soreness in her leg today. She has no other complaints. Physical Exam 2 Vital Signs (Past 24 Hours): Last Vital Signs Temp 36.9 C 06/14/18 07:00 Pulse 69 06/14/18 07:00 Resp 16 06/14/18 07:00 BP 126/75 06/14/18 07:00 Pulse Ox 96 06/14/18 07:00 Musculoskeletal: On physical examination of her left leg, there is some swelling. Her dressing is clean and dry and the knee immobilizer is in place. She does have active dorsiflexion of her left ankle and sensation is intact throughout. _ (1) Fracture of tibial plateau, closed Encounter type: initial encounter Fracture healing: Laterality: left Qualified Code(s): S82.142A - Displaced bicondylar fracture of left tibia, initial encounter for closed fracture
--- NOTE | 2018-06-14 09:24 | Discharge Summary ---
Date of Service June 14, 2018 Admission HPI Per Admitting Provider Melina is a pleasant 58-year-old female who slipped and fell on the ice about a week ago. She had a twisting injury to her left leg. She went to the emergency room and radiographs demonstrated a depressed left lateral tibial plateau fracture. She was placed in a splint in the emergency room presented my office. He got a CAT scan of her left leg which showed a centimeter of depression. After discussions in the office she elected to proceed with a open reduction and internal fixation of the left proximal tibia Discharge Data Consultations 06/12/18 18:48 Consult Case Management - Discharge Planning Routine Procedures Performed Operation Date: 06/12/18 07:00 Actual Procedures p Left Tibial Plateau Fracture Open Reduction Internal Fixation(Left) - Josh Domínguez DO [facility] Course (1) Fracture of tibial plateau, closed: On June 12, [address] [facility] and underwent an open reduction internal fixation of the left tibial plateau without complication. She had a general anesthetic and a regional block. Postoperatively she was placed in a knee immobilizer and discharged to general orthopedic floors. She was started on aspirin for DVT prophylaxis. Her hospital course was uneventful. On postop day #1 she was able to participate well with physical therapy and be compliant with the nonweightbearing instructions. She was neurovascularly intact. She had a visit from case management and after discussions, she decided to go with home health. On postop day #2 she was doing fairly well. She had some soreness in her leg but it was controlled with the tramadol. She was then discharged home with home health services. She will follow-up with orthopedics in 2 weeks. Discharge Instructions Home Medications Medication Instructions Recorded Confirmed gabapentin 600 mg PO TID 06/05/18 06/12/18 lorazepam 2 mg PO HS 06/05/18 06/12/18 losartan [Cozaar] 25 mg PO QAM 06/05/18 06/12/18 ondansetron HCl 4 mg PO Q6 PRN 06/05/18 06/12/18 ranitidine HCl 150 mg PO DAILY PRN 06/05/18 06/12/18 rizatriptan 10 mg PO UD PRN 06/05/18 06/12/18 Previous Rx's Medication Instructions Recorded aspirin [Ecotrin Low Strength] 81 mg PO BID #84 tab 06/13/18 tramadol 50 - 100 mg PO Q4H PRN #40 tab 06/13/18
[2018-06-14] MEDS: TRAMADOL HCL 50 MG TABLET PO PRN (11:35)
== END 2018-06-14 12:02 | disposition home health service (06) | DRG 494 ==
LOC: ASU 12:15 → 3E 17:19

== ENCOUNTER 2019-04-08 09:34 | Observation (INO) ==
[2019-04-08] MEDS ORDERED: ASPIRIN 81 MG CHEW PO STA (09:51)
[2019-04-08 10:04] LABS: Basophils # (auto) 0.01 K/uL (0-0.2); Basophils % (auto) 0.3 %; Eosinophils # (auto) 0.03 K/uL (0-0.5); Eosinophils % (auto) 0.9 %; Hematocrit (blood only) 39.3 % (37-47); Hemoglobin 13.8 g/dL (12.0-16.0); Lymphocytes # (auto) 0.76 K/uL (1.2-3.4); Mean Corpuscular Hemoglobin 29.8 pg (25-34); Mean Corpuscular Hgb Conc 35.1 g/dL (32-36); Mean Corpuscular Volume 84.9 fL (80-100); Mean Platelet Volume 9.5 fL (7.4-10.4); Monocytes % (auto) 12.1 %; Neutrophils % (auto) 63.7 %; Platelet Count 164 K/uL (130-400); RDW Coefficient of Variation 13.6 % (11.5-14.5); RDW Standard Deviation 41.6 fL (36.4-46.3); Red Blood Count 4.63 M/uL (4.2-5.4)
[2019-04-08 10:14] LABS: INR 1.1 (0.9-1.1); Prothrombin Time 10.9 Seconds (9.0-12.0)
[2019-04-08 10:19] LABS: Albumin Level 4.1 gm/dl (3.4-5.0); Blood Urea Nitrogen 12 mg/dl (7-18); Calcium 9.2 mg/dl (8.5-10.1); Carbon Dioxide 29 mmol/L (21-32); Chloride 106 mmol/L (98-107); Glucose 155 mg/dl (70-99); Potassium 3.3 mmol/L (3.5-5.1); Sodium 142 mmol/L (136-145)
[2019-04-08 10:21] LABS: Alanine Aminotransferase 16 U/L (12-78); Aspartate Aminotransferase 13 U/L (15-37); Est GFR (African American) 106.5; Est GFR (Non-African American) 91.9; Lipase 218 U/L (73-393)
--- NOTE | 2019-04-08 10:21 | XRay Report ---
XR chest 1V portable CLINICAL HISTORY: 59 years-old Female presenting with Chest Pain. TECHNIQUE: Portable upright AP view of the chest was obtained. COMPARISON: 03/20/2017. FINDINGS: Cardiomediastinal silhouette normal. Lungs are hyperinflated. No focal opacity. No pleural effusion o r pneumothorax. Osseous structures normal. Cholecystectomy clips noted. IMPRESSION: 1. Hyperinflation could suggest underlying emphysema, another obstructive lung disease, or exuberant inspiratory effort. No focal infiltrate to suggest pneumonia. Electronically signed by: Deandre Diego M.D. 04/08/2019 10:19 AM
[2019-04-08 10:36] LABS: Albumin Globulin Ratio 1.3 (0.9-2); Alkaline Phosphatase 64 U/L (45-117); Bilirubin,Total 0.8 mg/dl (0.2-1); Globulin 3.1 gm/dl (2.5-4.0); Magnesium 2.1 mg/dl (1.8-2.4); Total Protein 7.2 gm/dl (6.4-8.2); Troponin I < 0.015 ng/ml (0-0.045)
--- NOTE | 2019-04-08 11:03 | CT Scan Report ---
CT angio head w con CLINICAL HISTORY: 59 years-old Female presenting with left arm weakness, left face numbness, left tamiko st pain. TECHNIQUE: Multidetector CT angiography of the head was performed after the administration of intrave nous contrast. 3-D volumetric and/or maximum intensity projection (MIP) images were subsequently bailey nstructed for review. IV contrast: 119 mL of Optiray 320. One or more dose lowering techniques were u sed consistent with the principles of ALARA (as low as reasonably achievable), including automatic ex posure control, mA or kV adjustment to individual patient size, and/or use of iterative reconstructio n. COMPARISON: 09/15/2012. CT DOSE (mGy.cm): The estimated cumulative dose is 465.61. FINDINGS: Service Member topogram: Unremarkable. The absence of a noncontrast CT head limits evaluation in the detection of an acute territorial infar ct. Anterior circulation: Intracranial portions of the internal carotid arteries patent to the level of t he termini. Anterior cerebral arteries patent. Middle cerebral arteries patent. Anterior communicatin g artery patent. Posterior circulation: Codominant vertebral arteries. Intradural portions of the vertebral arteries p atent. Posterior inferior cerebellar arteries patent. Basilar artery patent. Anterior inferior cerebe llar arteries poorly visualized. Superior cerebellar arteries patent. Posterior cerebral arteries (PC A) patent with a origin of the left ICHTHYOLOGY TEACHER. Left posterior communicating artery (P-comm) patent. R ight P-comm hypoplastic or aplastic. Dural venous sinuses: Patent. Other: Allowing for the phase of contrast, brain parenchyma within normal limits. Calvarium intact. IMPRESSION: The absence of a noncontrast CT head limits evaluation in the detection of an acute territorial infar ct. 1. No evidence of aneurysm, focal vessel occlusion, or significant stenosis of the intracranial evgeny jennie. Electronically signed by: Deandre Diego M.D. 04/08/2019 11:00 AM
--- NOTE | 2019-04-08 11:04 | CT Scan Report ---
CT angio neck with con CLINICAL HISTORY: 59 years-old Female presenting with L face/arm numbness, left chest pain. TECHNIQUE: Multidetector CT angiography of the neck was performed after the administration of intrave nous contrast. 3-D volumetric and/or maximum intensity projection (MIP) images were subsequently bailey nstructed for review. IV contrast: 119 mL of Optiray 320. One or more dose lowering techniques were u sed consistent with the principles of ALARA (as low as reasonably achievable), including automatic ex posure control, mA or kV adjustment to individual patient size, and/or use of iterative reconstructio n. Stenosis measurements were based on NASCET-like criteria (distal lumen diameter as the denominator for stenosis measurement). COMPARISON: None. CT DOSE (mGy.cm): The estimated cumulative dose is 465.61 mGy.cm. FINDINGS: Production Control Scheduler topogram: Unremarkable. Aortic arch: Normal three-vessel aortic arch with patent origins of the branch vessels. Innominate artery: Patent. Right subclavian artery: Patent. Right common carotid artery: Patent. Right internal and external carotid arteries: Right carotid bifurcation patent. Right internal and ex ternal carotid arteries widely patent. Left common carotid artery: Patent. Left internal and external carotid arteries: Left carotid bifurcation patent. Left internal and exter nal carotid arteries widely patent. Left subclavian artery: Patent. Vertebral arteries: Codominant vertebral arteries. Origins and courses of the bilateral vertebral art eries patent. Other: Limited intracranial evaluation within normal limits. Soft tissues of the neck normal allowing for the phase of contrast. Normal cervical spine. Lung apices clear. IMPRESSION: 1. No evidence of dissection, focal vessel occlusion, or significant stenosis of the cervical arteri es. Electronically signed by: Deandre Diego M.D. 04/08/2019 11:03 AM
--- NOTE | 2019-04-08 11:12 | CT Scan Report ---
CT angio chest PE protocol CLINICAL HISTORY: 59 years-old Female presenting with left face and arm numbness, left chest pain. TECHNIQUE: Multidetector CT angiography of the chest was performed after administration of intravenou s contrast. 3-D volumetric and/or maximum intensity projection (MIP) images were subsequently reconst ructed for review. IV contrast: 119 mL of Optiray 320. One or more dose lowering techniques were used consistent with the principles of ALARA (as low as reasonably achievable), including automatic expos ure control, mA or kV adjustment to individual patient size, and/or use of iterative reconstruction. COMPARISON: Chest x-ray from earlier today. CT DOSE (mGy.cm): The estimated cumulative dose is 465.61. FINDINGS: Journalist topogram: Unremarkable. Pulmonary vasculature: The study is adequate for assessment of the pulmonary vascular tree. No filling defect within the pul monary arteries to suggest embolus. Main pulmonary artery is not enlarged. No flattening of the inter ventricular septum. No intracardiac filling defect. No reflux of contrast into the hepatic veins. Remaining chest: Soft tissues: Normal thyroid and thoracic inlet. No axillary, supraclavicular, mediastinal, or hilar lymphadenopathy. Normal aorta. Normal heart size. No pericardial or pleural effusion. Upper abdomen n ormal. Lungs and airways: No pneumothorax. Central airways patent. Pulmonary arteries are not significantly enlarged relative to adjacent bronchi. No interlobular septal thickening. Minimal dependent changes l ikely atelectasis. Musculoskeletal: Bone island noted in the upper thoracic spine at T2. IMPRESSION: 1. No evidence of pulmonary embolus. No acute intrathoracic pathology. Electronically signed by: Deandre Diego M.D. 04/08/2019 11:10 AM
--- NOTE | 2019-04-08 11:27 | History & Physical Report ---
Date of Service April 08, 2019 Assessment & Plan (1) TIA (transient ischemic attack): Stroke Like Symptoms--Possible TIA Admit in Tele CT head: No acute intracranial abnormality. CTA Head:No evidence of aneurysm, focal vessel occlusion, or significant stenosis of the intracranial arteries. Neck CTA:No evidence of dissection, focal vessel occlusion, or significant stenosis of the cervical arteries. Normal TSH Check vitamin B12 level Stroke work up including lipid panel, A1C, MRI Brain, ECHO Speech and swallow eval Start aspirin Neuro checks, Neurology consult PT/OT Allow permissive HTN in setting of acute CVA--Hold Losartan Chest Pain: R/O ACS Hypertensive urgency Likely secondary to anxiety, hypertensive urgency CTA:No evidence of pulmonary embolus. No acute intrathoracic pathology. 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 Patient states that she ran out of her Ativan and was unable to sleep yesterday night. She admits to having nightmares overnight. She noticed to have left hand numbness associated with heaviness this a.m. at around 8 AM which later progressed to the whole left arm and left face. She states the symptoms lasted for about 2 to 3 hours. She believes she had some le ft leg weakness as well which lasted for only 5 minutes. She admits to taking aspirin 81 mg at home prior to coming to ER. She also reports having transient left-sided nonradiating chest discomfort associated with dyspnea on exertion this morning which resolved. She denies having any panic attacks. Also denies any history of palpitations, dizziness, diaphoresis, cough, fever, chills, fall, trauma, headache, change in vision, double/blurry vision, slurred speech, facial deformity, bowel/bladder incontinence, nausea, vomiting, abdominal pain, diarrhea, dysuria, recent change in medications. Allergies Allergy/AdvReac Type Severity Reaction Status Date / Time chocolate flavor Allergy Severe HIVES Verified 04/08/19 11:06 diphenhydramine Allergy Intermediate CHEST Verified 04/08/19 11:06 PAIN, TACHYCARDIA oxycodone Allergy Intermediate hives Verified 04/08/19 11:06 tetracycline Allergy Mild HIVES Verified 04/08/19 11:06 acetaminophen [From [facility]] AdvReac Intermediate ITCHING, Verified 04/08/19 11:06 WELTS hydrocodone [From [facility]] AdvReac Intermediate ITCHING, Verified 04/08/19 11:06 WELTS codeine AdvReac Mild HEADACHES Verified 04/08/19 11:06 latex AdvReac Mild redness/itching/localized Verified 04/08/19 11:06 swelling Home Medications Home Medications Medication Instructions Recorded Confirmed Type lorazepam 2 mg PO HS 06/05/18 04/08/19 History ondansetron HCl 4 mg PO Q6 PRN 06/05/18 04/08/19 History gabapentin 600 mg tablet 600 mg PO TID tab 03/22/19 04/08/19 History losartan 25 mg tablet 25 mg PO DAILY 03/22/19 04/08/19 History omeprazole magnesium 20 mg 20 mg PO DAILY PRN 03/22/19 04/08/19 History tablet,delayed release rizatriptan 10 mg PO UD PRN 04/08/19 04/08/19 History Past Med/Surg History Medical History Difficult airway for intubation "[employer]" INSTRUCTED TO BRING LETTER FROM [facility]. PREVIOUSLY TOLD AT [facility] AND [facility]. 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 Seen at [facility] ED. 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 Surgical History History of appendectomy (Resolved) History of cholecystectomy (Resolved) History of colonoscopy History of decompression of ulnar nerve (Chronic) x 3 History of open reduction and internal fixation (ORIF) procedure CLAVICLE WITH HARDWARE REMOVAL History of surgery Excision of schwannoma from brachial plexus x2 History of tonsillectomy History of total hysterectomy (Resolved) BOLA WITH BSO Family History Father Coronary heart disease CHF (congestive heart failure) Mother Lymphoma Social History Preferred Language: Yi Communication Ability: Effective Inhalation Therapy Aide Required: No Beliefs That Will Affect Care: None marital status: Current Living Situation: Alone Current Living Situation Comment: DAUGHTER WILL STAY WITH PATIENT. Feels Safe at Home: Yes Smoking Status: Never smoker Second Hand Exposure: No ; Hx Alcohol Use: No Hx Substance Use: No Review of Systems Review of Systems: All systems reviewed & are unremarkable except as noted in HPI & below Physical Exam Physical Exam: Physical Exam: Vitals signs as noted above General Appearance:Thin, no apparent distress Head: normocephalic, Atraumatic Eyes: normal inspection, EOMI Neck: supple, Trachea midline Respiratory/Chest: Normal breath sounds, CTA Cardiovascular: S1, S2, No murmur Abdomen/GI:Soft, Non tender, no guarding or rigidity, bowel sounds present Extremities/Musculoskelatal:normal inspection, no edema Neurologic/Psych:AAOX3, grossly no focal neurological deficits, intact sensory system Skin: normal color, warm, +Left knee surgical scar Results & Data Vital Signs (Past 12 Hours) Vital Signs Temp Pulse Resp BP Pulse Ox 04/08/19 10:41 18 190/104 H 04/08/19 10:07 79 20 95 04/08/19 10:03 98 04/08/19 10:01 76 20 152/120 H 97 04/08/19 09:59 98 04/08/19 09:35 36.6 C 108 H 20 183/113 H 98 Laboratory Results Short CBC 04/08/19 Range/Units 09:52 WBC 3.30 L (4.8-10.8) K/uL Hgb 13.8 (12.0-16.0) g/dL Hct 39.3 (37-47) % Plt Count 164 (130-400) K/uL BMP 04/08/19 09:52 Sodium 142 Potassium 3.3 L Chloride 106 Carbon Dioxide 29 BUN 12 Creatinine 0.71 Glucose 155 H Calcium 9.2 Cardiac Enzymes 04/08/19 Range/Units 09:52 Troponin I < 0.015 (0-0.045) ng/ml Liver Function 04/08/19 Range/Units 09:52 Total Bilirubin 0.8 (0.2-1) mg/dl AST 13 L (15-37) U/L ALT 16 (12-78) U/L Alkaline Phosphatase 64 (45-117) U/L Albumin 4.1 (3.4-5.0) gm/dl Diagnostic Findings CT head:No acute intracranial abnormality. Head CTA:No evidence of aneurysm, focal vessel occlusion, or significant stenosis of the intracranial arteries. Neck CTA: No evidence of dissection, focal vessel occlusion, or significant stenosis of the cervical arteries. CTA chest: No evidence of pulmonary embolus. No acute intrathoracic pathology. CXR:Hyperinflation could suggest underlying emphysema, another obstructive lung disease, or exuberant inspiratory effort. No focal infiltrate to suggest pneumonia. ECG Additional Comments: EKG:NSR, T wave inversion in inferior leads, V2, QTC:437
--- NOTE | 2019-04-08 12:11 | CT Scan Report ---
CT head/brain wo con CLINICAL HISTORY: 59 years-old Female presenting with left-sided facial and arm numbness, concern for stroke. TECHNIQUE: Multidetector CT imaging of the head was performed without the use of intravenous contrast . IV contrast: None. One or more dose lowering techniques were used consistent with the principles of ALARA (as low as reasonably achievable), including automatic exposure control, mA or kV adjustment t o individual patient size, and/or use of iterative reconstruction. COMPARISON: 09/15/2012. CT DOSE (mGy.cm): The estimated cumulative dose is 537.48 mGy.cm. 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 Ventricles and sulci normal in size. No hemorrhage. Brain parenchyma normal in appearance with preser daquan gordon-white differentiation. No acute territorial infarct. No mass effect or midline shift. No ext ra-axial fluid collection. Paranasal sinuses and mastoid air cells clear. Calvarium intact. Residual contrast in central vasculature and dural venous sinuses noted. This is not significantly limited lacho luation for infarct. IMPRESSION: 1. No acute intracranial abnormality. Electronically signed by: Deandre Diego M.D. 04/08/2019 12:10 PM
[2019-04-08] MEDS ORDERED: POTASSIUM CHLORIDE 20 MEQ TABCR PO STA (13:32)
[2019-04-08] MEDS ORDERED: NITROGLYCERIN SL 0.4 MG/TAB TAB SL PRN (13:32)
[2019-04-08] MEDS ORDERED: ACETAMINOPHEN 325 MG TAB PO PRN (13:32)
[2019-04-08] MEDS ORDERED: PHARMACIST DISCHARGE MED REC CONSULT PRN (13:32)
[2019-04-08] MEDS ORDERED: ONDANSETRON 4 MG OD TAB PO PRN (13:42)
[2019-04-08] MEDS ORDERED: PANTOprazole 40 MG TAB PO PRN (13:46)
[2019-04-08] MEDS ORDERED: LORazepam 1 MG TAB PO PRN (13:47)
[2019-04-08] MEDS ORDERED: RIZATRIPTAN BENZOATE MLT 10 MG TAB PO PRN (13:48)
[2019-04-08] MEDS: GABAPENTIN 600 MG TAB PO SCH ×2 (14:43→20:07)
--- NOTE | 2019-04-08 15:50 | Emergency Department Note ---
Entered by Ani Ferreira acting as a scribe for History of Present Illness General Chief complaint: Cardiac Assessment Stated complaint: CHEST PAIN Time Seen by Provider: 04/08/19 09:37 Source: patient History of Present Illness Onset (ago): hour(s) (0800 this morning) Location: chest and right (arm, hand) Pain Consistency: + constant (chest pressure) Maximum Pain Intensity: 5 Quality: + other (cardiac assessment) Associated symptoms: + chest pain (pressure), + shortness of breath (when walking) and + other (RIght arm and hand tingling. numbness in her left face. Negative recent traveling, smoking. ); no headaches and no nausea/vomiting The patient is a 59 year old female who presents to the ED for a cardiac assessment. She reports she was lying in bed at 0800 this morning when she felt tingling in her right arm and hand and numbness in her left face. She states she developed chest pressure which felt different than her episodes of chest pain in the past. She states she took a baby aspirin at 0830 this morning and tried waiting out her pain however, it has been constant, so she came to the ED. She notes that she currently feels lightheaded and short of breath when walking. Pt denies any headaches, nausea, vomiting, recent traveling, smoking. She follows with Dr. Johnson, Family Medicine. Home Medications Home Medications Medication Instructions Recorded Confirmed Type lorazepam 2 mg PO HS 06/05/18 04/08/19 History ondansetron HCl 4 mg PO Q6 PRN 06/05/18 04/08/19 History gabapentin 600 mg tablet 600 mg PO TID tab 03/22/19 04/08/19 History losartan 25 mg tablet 25 mg PO DAILY 03/22/19 04/08/19 History omeprazole magnesium 20 mg 20 mg PO DAILY PRN 03/22/19 04/08/19 History tablet,delayed release rizatriptan 10 mg PO UD PRN 04/08/19 04/08/19 History Allergies Allergy/AdvReac Type Severity Reaction Status Date / Time chocolate flavor Allergy Severe HIVES Verified 04/08/19 11:06 diphenhydramine Allergy Intermediate CHEST Verified 04/08/19 11:06 PAIN, TACHYCARDIA oxycodone Allergy Intermediate hives Verified 04/08/19 11:06 tetracycline Allergy Mild HIVES Verified 04/08/19 11:06 acetaminophen [From [place]] AdvReac Intermediate ITCHING, Verified 04/08/19 11:06 WELTS hydrocodone [From [place]] AdvReac Intermediate ITCHING, Verified 04/08/19 11:06 WELTS codeine AdvReac Mild HEADACHES Verified 04/08/19 11:06 latex AdvReac Mild redness/itching/localized Verified 04/08/19 11:06 swelling Past Med/Surg History Medical History Difficult airway for intubation "LMA [employer] FINE" INSTRUCTED TO BRING LETTER FROM [facility]. PREVIOUSLY TOLD AT [facility] AND [facility]. 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 Seen at [facility] ED. 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 Surgical History History of appendectomy (Resolved) History of cholecystectomy (Resolved) History of colonoscopy History of decompression of ulnar nerve (Chronic) x 3 History of open reduction and internal fixation (ORIF) procedure CLAVICLE WITH HARDWARE REMOVAL History of surgery Excision of schwannoma from brachial plexus x2 History of tonsillectomy History of total hysterectomy (Resolved) BOLA WITH BSO Family History Father Coronary heart disease CHF (congestive heart failure) Mother Lymphoma Social History Preferred Language: Lithuanian Communication Ability: Effective 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 Other Information That Helps Us Care for You: No Feels Safe at Home: Yes Safety Concerns: Feels Safe At This Time Smoking Status: Never smoker Second Hand Exposure: No ; Hx Alcohol Use: No Hx Substance Use: No Review of Systems See HPI for pertinent positives & negatives. and A total of 10 systems reviewed and were otherwise negative Physical Exam Vital Signs Vital Signs - 24 hr 04/08/19 09:35 04/08/19 09:59 04/08/19 10:01 Temperature 36.6 C Temperature Source Oral Pulse Rate 108 H 76 Pulse Rate from SpO2 Sensor 75 Respiratory Rate 20 20 Blood Pressure 183/113 H 152/120 H Blood Pressure Mean 136 123 Pulse Oximetry 98 98 97 Oxygen Delivery Method Room Air Room Air Oxygen Flow Rate Sepsis Recent Fever Within 48 Hours No Sepsis Action Taken by Nursing No Action Required 04/08/19 10:03 04/08/19 10:07 04/08/19 10:41 Temperature Temperature Source Pulse Rate 79 Pulse Rate from SpO2 Sensor 80 Respiratory Rate 20 18 Blood Pressure 190/104 H Blood Pressure Mean 136 Pulse Oximetry 98 95 Oxygen Delivery Method Room Air Oxygen Flow Rate 0 Sepsis Recent Fever Within 48 Hours Sepsis Action Taken by Nursing 04/08/19 10:42 04/08/19 11:00 04/08/19 11:01 Temperature Temperature Source Pulse Rate 70 75 71 Pulse Rate from SpO2 Sensor 71 74 70 Respiratory Rate 17 15 16 Blood Pressure 163/92 H Blood Pressure Mean 116 Pulse Oximetry 97 97 97 Oxygen Delivery Method Oxygen Flow Rate Sepsis Recent Fever Within 48 Hours Sepsis Action Taken by Nursing 04/08/19 11:30 04/08/19 11:31 Temperature Temperature Source Pulse Rate 75 69 Pulse Rate from SpO2 Sensor 74 69 Respiratory Rate 19 14 Blood Pressure Blood Pressure Mean Pulse Oximetry 97 97 Oxygen Delivery Method Oxygen Flow Rate Sepsis Recent Fever Within 48 Hours Sepsis Action Taken by Nursing GENERAL: Awake, alert, well-appearing, in no distress HENT: Normocephalic, atraumatic. Oropharynx unremarkable. EYES: Normal conjunctiva. Sclera non-icteric. NECK: Supple. No nuchal rigidity. Trachea midline. RESPIRATORY: Clear to auscultation. No wheezes. Normal respiratory effort. CARDIAC: Normal rate. Normal rhythm. Extremities warm and well perfused. GI: Soft, non-distended. No tenderness to palpation. RECTAL: Deferred. MUSCULOSKELETAL: Atraumatic. Chest examination reveals no tenderness. LOWER EXTREMITIES: Calves are non-tender. 1+ edema of the LLE NEURO: Normal sensorium. No motor deficits noted although slight L arm drift. No facial droop. No slurred speech. Subjective left face, shoulder, and arm numbness to gross touch. SKIN: Warm and dry. No rash or jaundice noted. Course Course 0940: Past medical records reviewed. The patient was evaluated in room B9. A complete history and physical exam was performed. 1121: I checked on the patient at this time. 1125: Discussed the patient's case with Dr. Soni, [facility]ist. The patient will be evaluated for further management. Administered Medications Gabapentin (Neurontin) 600 mg PO TID ELLEN Stop: 05/08/19 13:59 Last Admin: 04/08/19 14:43 Dose: 600 mg Documented by: [id number] Discontinued Medications Aspirin (Aspirin Chew) 243 mg PO NOW STA Stop: 04/08/19 09:52 Last Admin: 04/08/19 10:09 Dose: 243 mg Documented by: [id number] Potassium Chloride (Klor-Con M20) 40 meq PO NOW STA Stop: 04/08/19 13:33 Last Admin: 04/08/19 14:42 Dose: 40 meq Documented by: [id number] Medical Decision Making Differential Diagnosis Differential diagnosis: Etiologies such as infections, reactive airway disease, pneumonia, pneumothorax, COPD, CHF, cardiac ischemia, pulmonary embolism, musculoskeletal, gastrointestinal, metabolic, infection, hypo/hyperglycemia, electrolyte abnormalities, cardiac sources, intracerebral event, toxicologic, neurologic, as well as others were entertained. Medical Records Attestation: I reviewed the patient's medical records. Home Medications Current Medication List: was personally reviewed by me Laboratory Data Attestation: I reviewed the patient's lab results. Result diagrams: 04/08/19 09:52 04/08/19 09:52 Lab Results 04/08/19 04/08/19 04/08/19 Range/Units 09:52 09:52 09:52 WBC 3.30 L (4.8-10.8) K/uL RBC 4.63 (4.2-5.4) M/uL Hgb 13.8 (12.0-16.0) g/dL Hct 39.3 (37-47) % MCV 84.9 (80-100) fL MCH 29.8 (25-34) pg MCHC 35.1 (32-36) g/dL RDW Std Deviation 41.6 (36.4-46.3) fL RDW Coeff of Terra 13.6 (11.5-14.5) % Plt Count 164 (130-400) K/uL MPV 9.5 (7.4-10.4) fL Immature Gran % (Auto) 0.0 % Neut % (Auto) 63.7 % Lymph % (Auto) 23.0 % [place] % (Auto) 12.1 % Eos % (Auto) 0.9 % Baso % (Auto) 0.3 % Immature Gran # (Auto) 0.00 (0.00-0.02) K/uL Neut # (Auto) 2.10 (1.4-6.5) K/uL Lymph # (Auto) 0.76 L (1.2-3.4) K/uL [place] # (Auto) 0.40 (0.11-0.59) K/uL Eos # (Auto) 0.03 (0-0.5) K/uL Baso # (Auto) 0.01 (0-0.2) K/uL PT 10.9 (9.0-12.0) Seconds INR 1.1 (0.9-1.1) Sodium 142 (136-145) mmol/L Potassium 3.3 L (3.5-5.1) mmol/L Chloride 106 (98-107) mmol/L Carbon Dioxide 29 (21-32) mmol/L Anion Gap 7.0 (3-11) BUN 12 (7-18) mg/dl Creatinine 0.71 (0.6-1.2) mg/dl Est Cr Clr Drug Dosing Not Reportable Est GFR ( Amer) 106.5 Est GFR (Non-Af Amer) 91.9 BUN/Creatinine Ratio 17.0 (10-20) Glucose 155 H (70-99) mg/dl Calcium 9.2 (8.5-10.1) mg/dl Magnesium 2.1 (1.8-2.4) mg/dl Total Bilirubin 0.8 (0.2-1) mg/dl AST 13 L (15-37) U/L ALT 16 (12-78) U/L Alkaline Phosphatase 64 (45-117) U/L Troponin I < 0.015 (0-0.045) ng/ml Total Protein 7.2 (6.4-8.2) gm/dl Albumin 4.1 (3.4-5.0) gm/dl Globulin 3.1 (2.5-4.0) gm/dl Albumin/Globulin Ratio 1.3 (0.9-2) Lipase 218 (73-393) U/L TSH 1.060 (0.300-4.500) uIu/ml Imaging Data Radiologist's Impression: Radiology results as stated below per my review and the radiologist's interpretation: XR chest 1V portable CLINICAL HISTORY: 59 years-old Female presenting with Chest Pain. TECHNIQUE: Portable upright AP view of the chest was obtained. COMPARISON: 03/20/2017. FINDINGS: Cardiomediastinal silhouette normal. Lungs are hyperinflated. No focal opacity. No pleural effusion or pneumothorax. Osseous structures normal. Cholecystectomy clips noted. IMPRESSION: 1. Hyperinflation could suggest underlying emphysema, another obstructive lung disease, or exuberant inspiratory effort. No focal infiltrate to suggest pneumonia. Electronically signed by: Deandre Diego M.D. 04/08/2019 10:[address] angio neck with con CLINICAL HISTORY: 59 years-old Female presenting with L face/arm numbness, left chest pain. TECHNIQUE: Multidetector CT angiography of the neck was performed after the administration of intravenous contrast. 3-D volumetric and/or maximum intensity projection (MIP) images were subsequently reconstructed for review. IV contrast: 119 mL of Optiray 320. One or more dose lowering techniques were used consistent with the principles of ALARA (as low as reasonably achievable), including automatic exposure control, mA or kV adjustment to individual patient size, and/or use of iterative reconstruction. Stenosis measurements were based on NASCET-like criteria (distal lumen diameter as the denominator for stenosis measurement). COMPARISON: None. CT DOSE (mGy.cm): The estimated cumulative dose is 465.61 mGy.cm. FINDINGS: [place] topogram: Unremarkable. Aortic arch: Normal three-vessel aortic arch with patent origins of the branch vessels. Innominate artery: Patent. Right subclavian artery: Patent. Right common carotid artery: Patent. Right internal and external carotid arteries: Right carotid bifurcation patent. Right internal and external carotid arteries widely patent. Left common carotid artery: Patent. Left internal and external carotid arteries: Left carotid bifurcation patent. Left internal and external carotid arteries widely patent. Left subclavian artery: Patent. Vertebral arteries: Codominant vertebral arteries. Origins and courses of the bilateral vertebral arteries patent. Other: Limited intracranial evaluation within normal limits. Soft tissues of the neck normal allowing for the phase of contrast. Normal cervical spine. Lung apices clear. IMPRESSION: 1. No evidence of dissection, focal vessel occlusion, or significant stenosis of the cervical arteries. Electronically signed by: Deandre Diego M.D. 04/08/2019 11:[address] angio head w con CLINICAL HISTORY: 59 years-old Female presenting with left arm weakness, left face numbness, left chest pain. TECHNIQUE: Multidetector CT angiography of the head was performed after the administration of intravenous contrast. 3-D volumetric and/or maximum intensity projection (MIP) images were subsequently reconstructed for review. IV contrast: 119 mL of Optiray 320. One or more dose lowering techniques were used consistent with the principles of ALARA (as low as reasonably achievable), including automatic exposure control, mA or kV adjustment to individual patient size, and/or use of iterative reconstruction. COMPARISON: 09/15/2012. CT DOSE (mGy.cm): The estimated cumulative dose is 465.61. FINDINGS: [place] topogram: Unremarkable. The absence of a noncontrast CT head limits evaluation in the detection of an acute territorial infarct. Anterior circulation: Intracranial portions of the internal carotid arteries patent to the level of the termini. Anterior cerebral arteries patent. Middle cerebral arteries patent. Anterior communicating artery patent. Posterior circulation: Codominant vertebral arteries. Intradural portions of the vertebral arteries patent. Posterior inferior cerebellar arteries patent. Basilar artery patent. Anterior inferior cerebellar arteries poorly visualized. Superior cerebellar arteries patent. Posterior cerebral arteries (FINISHING PAN OPERATOR) patent with a origin of the left FINISHING PAN OPERATOR. Left posterior communicating artery (P- comm) patent. Right P-comm hypoplastic or aplastic. Dural venous sinuses: Patent. Other: Allowing for the phase of contrast, brain parenchyma within normal limits. Calvarium intact. IMPRESSION: The absence of a noncontrast CT head limits evaluation in the detection of an acute territorial infarct. 1. No evidence of aneurysm, focal vessel occlusion, or significant stenosis of the intracranial arteries. Electronically signed by: Deandre Diego M.D. 04/08/2019 11:[address] angio chest PE protocol CLINICAL HISTORY: 59 years-old Female presenting with left face and arm numbness, left chest pain. TECHNIQUE: Multidetector CT angiography of the chest was performed after administration of intravenous contrast. 3-D volumetric and/or maximum intensity projection (MIP) images were subsequently reconstructed for review. IV contrast: 119 mL of Optiray 320. One or more dose lowering techniques were used consistent with the principles of ALARA (as low as reasonably achievable), including automatic exposure control, mA or kV adjustment to individual patient size, and/or use of iterative reconstruction. COMPARISON: Chest x-ray from earlier today. CT DOSE (mGy.cm): The estimated cumulative dose is 465.61. FINDINGS: [place] topogram: Unremarkable. Pulmonary vasculature: The study is adequate for assessment of the pulmonary vascular tree. No filling defect within the pulmonary arteries to suggest embolus. Main pulmonary artery is not enlarged. No flattening of the interventricular septum. No intracardiac filling defect. No reflux of contrast into the hepatic veins. Remaining chest: Soft tissues: Normal thyroid and thoracic inlet. No axillary, supraclavicular, mediastinal, or hilar lymphadenopathy. Normal aorta. Normal heart size. No pericardial or pleural effusion. Upper abdomen normal. Lungs and airways: No pneumothorax. Central airways patent. Pulmonary arteries are not significantly enlarged relative to adjacent bronchi. No interlobular septal thickening. Minimal dependent changes likely atelectasis. Musculoskeletal: Bone island noted in the upper thoracic spine at T2. IMPRESSION: 1. No evidence of pulmonary embolus. No acute intrathoracic pathology. Electronically signed by: Deandre Diego M.D. 04/08/2019 11:10 AM ECG Data Attestation: I personally reviewed and interpreted this ECG as follows: Indication: + chest pain Rate (beats per minute): 93 Rhythm: + normal sinus ECG [place]: + Normal ECG ST segments: no ST depression and no ST elevation ECG Findings: + Other (normal intervals ); no PVCs Comparison ECG Date: from (05/16/18) Change: the following changes noted (Inferior T-wave inversion is new) Blood Pressure Blood Pressure Findings: Elevated blood pressure Blood Pressure Disposition: further management by hospitalist HILARY Casey Patient is a 59-year-old female with a past medical history including hype rtension, migraines presenting here today with a complaint of chest pain rotation left arm beginning around 830 this morning about an hour prior to arrival. Patient is hypertensive upon arrival. No significant history of cardiac disease is related personally has been 5 years since last stress test 4. Significant family history. Heaviness in the left chest with some heaviness and numbness in left arm and some numbness on the left face. Denies dysphasia. Some chronic swelling of the left lower extremity status post surgical repair of tibial plateau fracture in the spring with a negative ultrasound about 3 days ago. Denies shortness of breath although states a little bit dyspnea on exert ion. Denies abdominal symptoms. No significant radiation of the back. Took a 81 aspirin prior to arrival. Given additional full dose aspirin here. No significant facial droop, or aphasia/dysarthria is noted on exam. Drift in the left upper extremity noted. Patient endorses some subjective difference in sensation of the left arm shoulder and entire left face. Also states her left leg feels a bit heavy but hard to differentiate given her prior injury here. Concern symptoms could be cardiac in relation versus muscular skeletal versus radiculopathy versus possible subtle CVA. Patient's symptoms are quite minimal at this point and do not feel that she would be a TPA candidate; as such stroke alert was not called. Cardiac work-up was pursued along with imaging of the head and neck. Excluded PE with angiograph studies as well as evaluated again neck and head vasculature. Basic labs were obtained. EKG without acute ST changes although there are appearance of some inferior T wave inversions. Slight hypokalemia noted but otherwise electrolytes and kidney function appears stable. No significant leukocytosis and appears near baseline chronic leukopenia. No evidence of liver dysfunction or pancreatic dysfunction. Patient symptoms are improved but still endorses bit of heaviness of her left hand/arm. Concern this could represent may be a TIA pathology. Also cardiac mimic with her discomfort is of concern. Discussed with the patient. Recommended continued observation here in the hospital discussed with the [facility] hospitalist. Already received aspirin. CT completed a contrasted scan and missed the initial noncontrast scan of the head limiting reliability. Impression & Plan TIA (transient ischemic attack), Chest pain Discharge Plan Visit Data *Final* Discharge Date/Time: 04/08/19 13:09 Chief Complaint: Cardiac Assessment Stated Complaint: CHEST PAIN ED Provider: Farooq Daily Discharge Problem: TIA (transient ischemic attack), Chest pain Patient Disposition: Admitted As Inpatient Discharge Instructions Interventions: ED Discharge Assessment Last Done: 04/08/19 13:09 Discharge Problem: Chest pain Qualifiers: Chest pain type: unspecified Qualified Code(s): R07.9 - Chest pain, unspecified The scribe's documentation has been prepared under my direction and personally reviewed by me in its entirety. I confirm that the note above accurately reflects all work, treatment, procedures, and medical decision making performed by me.
[2019-04-08] MEDS ORDERED: GADOBUTROL 30ML VIAL IV PRN (16:33)
--- NOTE | 2019-04-08 16:53 | Magnetic Resonance Report ---
MR brain wo/w con CLINICAL HISTORY: 59 years-old Female presenting with left-sided facial and arm numbness began at 8:0 0 AM today, symptoms now resolved, concern for stroke. TECHNIQUE: Multisequence, multiplanar MR imaging of the brain was performed before and after the admi nistration of intravenous contrast. IV contrast: 5 mL of Gadavist. COMPARISON: 03/02/2015. FINDINGS: Localizer images: Unremarkable. Bone marrow signal intensity within the calvarium within normal limits. Normal midline sagittal structures. Ventricles and sulci normal in size. No mass effect or midline sh ift. No restricted diffusion or hemorrhage. Periventricular and subcortical white matter T2/FLAIR hyp erintensity, nonspecific but likely indicative of chronic small vessel ischemic change. Additionally, there may be an old lacunar infarct in the left frontal lobe periventricular white matter. No abnorm al parenchymal enhancement. 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 No extra-axial fluid collection. T2 skull base flow voids preserved. IMPRESSION: 1. Chronic small vessel ischemic change. 2. No acute intracranial pathology. No abnormal enhancement. Electronically signed by: Deandre Diego M.D. 04/08/2019 4:51 PM
[2019-04-09 06:53] LABS: Basophils # (auto) 0.03 K/uL (0-0.2); Basophils % (auto) 0.8 %; Eosinophils # (auto) 0.08 K/uL (0-0.5); Eosinophils % (auto) 2.2 %; Hematocrit (blood only) 42.5 % (37-47); Hemoglobin 14.3 g/dL (12.0-16.0); Lymphocytes # (auto) 1.28 K/uL (1.2-3.4); Lymphocytes % (auto) 35.3 %; Mean Corpuscular Hemoglobin 29.3 pg (25-34); Mean Corpuscular Hgb Conc 33.6 g/dL (32-36); Mean Corpuscular Volume 87.1 fL (80-100); Mean Platelet Volume 9.4 fL (7.4-10.4); Monocytes # (auto) 0.28 K/uL (0.11-0.59); Monocytes % (auto) 7.7 %; Neutrophils # (auto) 1.96 K/uL (1.4-6.5); Platelet Count 174 K/uL (130-400); RDW Coefficient of Variation 13.7 % (11.5-14.5); RDW Standard Deviation 43.6 fL (36.4-46.3); Red Blood Count 4.88 M/uL (4.2-5.4); White Blood Count 3.63 K/uL (4.8-10.8)
[2019-04-09 07:20] LABS: BUN Creatinine Ratio 23.5 (10-20); Calcium 9.5 mg/dl (8.5-10.1); Creatinine Clr Calc Pharmacy 72.4 ml/min; Est GFR (Non-African American) 94.9; Potassium 3.7 mmol/L (3.5-5.1)
[2019-04-09 07:33] LABS: Estimated Average Glucose 103 mg/dl; Hemoglobin A1C 5.2 % (4.5-5.6)
[2019-04-09] MEDS: GABAPENTIN 600 MG TAB PO SCH (08:12)
--- NOTE | 2019-04-09 08:42 | Neurology Consultation ---
Date of Consultation April 09, 2019 Assessment & Plan (1) Migraine: Esther Gil is a 59 yo woman w/ PMH of HTN, fibromyalgia, migraine, GERD, Guyon syndrome, osteoporosis and h/o benign schwannoma who p/t [facility] on 04/08 for chest pain/pressure a/w left face/arm/leg numbness and tingling. Symptom localization: right internal capsule or thalamus (pure sensory lacunar syndrome) Workup: A1c 5.2 LDL 139 TTE: EF 55 to 60%, small anterior pericardial effusion with no compromising cardiac function, no PFO, moderate LVH MRI brain: no acute infarct, mild small vessel ischemic disease, few scattered T2 hyperintensities in bilateral cerebral hemispheres, left frontal DVA, left periventricular white matter lesion with DWI/ADC changes that likely represents a chronic infarct versus white matter lesion CTA H&N: atherosclerosis of the extracranial portion of the left vertebral artery, DIRECTOR CLIENT on the left, otherwise no LVO, high-grade stenosis or aneurysm noted troponin negative # Transient Left-sided numbness: Unclear if event represents true TIA as pt was anxious and endorsed missing ativan night prior (possible anxiety attack) vs migraine with sensory aura given that she had a migraine start in the evening on 04/08 - Acute treatment: ASA - Continuous cardiac monitoring, will consider Holter monitor as outpatient if telemetry here unrevealing - Vitals, Neurochecks, NIHSS per unit routine - BP parameters: SBP CAP 180, goal normotension over next 3-4 days - Consult speech, PT, OT for supportive management - Will counselor aid concerning TIA education, smoking cessation, healthy diet, physical activity, weight loss - Follow up with PCP for assistance with outpatient goals (BP <135/85, LDL <70, A1c <7) - Follow up in neurology clinic in 6-8 weeks (already has an appointment with Jenifer Escobar PA-C, in April 2019) Secondary Stroke Prevention: - Antiplatelet: ASA 81mg po daily/plavix 75mg daily x 21 days - Anticoagulation: Not indicated at this time - Statin: Atorvastatin 40mg daily She is stable for discharge from a neurological standpoint. Thank you for this interesting consult. Please call or text with any questions. Present on Admission?: No (2) Chest pain of uncertain etiology: Present on Admission?: Yes (3) TIA (transient ischemic attack): Present on Admission?: Yes History of Present Illness Attending Physician: Loraine Mckeon MD History of Present Illness Esther Gil is a 59 yo woman w/ PMH of HTN, fibromyalgia, migraine, GERD, Guyon syndrome, osteoporosis and h/o benign schwannoma who p/t [facility] on 04/08 for chest pain/pressure a/w left face/arm/leg numbness and tingling. 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 She took a baby aspirin ~830am with no resolution of symptoms, so presented to ED. In ED, reported having SOB and lightheadedness while walking. She endorsed running out of her ativan on 04/07 pm and had poor sleep overnight with nightmares. Symptoms resolved about 2-3 hours after onset. In the ED was notable for WBC 3.3, hemoglobin 13.8, platelets 164, INR 1.1, sodium 142, potassium 3.3, creatinine 0.71, glucose 155, calcium/magnesium normal, negative troponin x2, LDL 139, TSH within normal, A1c 5.2. CTA head and neck shows atherosclerosis of the extracranial portion of the left vertebral artery, DIRECTOR CLIENT on the left, otherwise no LVO, high-grade stenosis or aneurysm noted. CTA of the chest showed no evidence of pulmonary embolism or intrathoracic pathology. Chest x-ray showed hyperinflated lungs with no pneumonia. CT head showed no hemorrhage or hypodensity. MRI brain showed no acute infarct, mild small vessel ischemic disease, few scattered T2 hyperintensities in bilateral cerebral hemispheres, left frontal DVA, left periventricular white matter lesion with DWI/ADC changes that likely represents a chronic infarct versus white matter lesion. Echocardiogram shows EF 55 to 60%, small anterior pericardial effusion with no compromising cardiac function, no PFO, moderate LVH. Today she reports that she is doing well. She reports that her left leg symptoms were more from her recent patella fracture and actually feeling numbness. He believes that her symptoms may have been due to just missing the Ativan the night prior to presentation. She reports that she did have a typical migraine headache that began when she was in the MRI scanner. She denies having any aura symptoms with previous migraines. She otherwise has no complaints this morning. Allergies Allergy/AdvReac Type Severity Reaction Status Date / Time chocolate flavor Allergy Severe HIVES Verified 04/08/19 11:06 diphenhydramine Allergy Intermediate CHEST Verified 04/08/19 11:06 PAIN, TACHYCARDIA oxycodone Allergy Intermediate hives Verified 04/08/19 11:06 tetracycline Allergy Mild HIVES Verified 04/08/19 11:06 acetaminophen [From [place]] AdvReac Intermediate ITCHING, Verified 04/08/19 11:06 WELTS hydrocodone [From [place]] AdvReac Intermediate ITCHING, Verified 04/08/19 11:06 WELTS codeine AdvReac Mild HEADACHES Verified 04/08/19 11:06 latex AdvReac Mild redness/itching/localized Verified 04/08/19 11:06 swelling Home Medications Home Medications Medication Instructions Recorded Confirmed Type lorazepam 2 mg PO HS 06/05/18 04/08/19 History ondansetron HCl 4 mg PO Q6 PRN 06/05/18 04/08/19 History gabapentin 600 mg tablet 600 mg PO TID tab 03/22/19 04/08/19 History losartan 25 mg tablet 25 mg PO DAILY 03/22/19 04/08/19 History omeprazole magnesium 20 mg 20 mg PO DAILY PRN 03/22/19 04/08/19 History tablet,delayed release rizatriptan 10 mg PO UD PRN 04/08/19 04/08/19 History Patient History Medical History Difficult airway for intubation "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. PREVIOUSLY TOLD AT [facility] AND [facility]. 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 Seen at [facility] ED. 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 Surgical History History of appendectomy (Resolved) History of cholecystectomy (Resolved) History of colonoscopy History of decompression of ulnar nerve (Chronic) x 3 History of open reduction and internal fixation (ORIF) procedure CLAVICLE WITH HARDWARE REMOVAL History of surgery Excision of schwannoma from brachial plexus x2 History of tonsillectomy History of total hysterectomy (Resolved) BOLA WITH BSO Family History Father Coronary heart disease CHF (congestive heart failure) Mother Lymphoma Social History Preferred Language: Icelandic Communication Ability: Effective 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 Other Information That Helps Us Care for You: No Feels Safe at Home: Yes Safety Concerns: Feels Safe At This Time Smoking Status: Never smoker Second Hand Exposure: No ; Hx Alcohol Use: No Hx Substance Use: No Review of Systems Review of Systems: 14 point review of systems completed and negative except as in HPI. Physical Exam Physical Exam: General Exam: GEN: NAD, sitting in chair. HEENT: No conjunctival injection, no rhinorrhea. CV: RRR, no peripheral edema PULM: Nonlabored respirations on room air. Neuro Exam: MS: Awake and Alert. Oriented to person, place, and date. Speech fluent and appropriate without dysarthria or paraphasic errors. Language intact including naming, comprehension, repetition. Cognition and memory grossly intact. Attention intact. No neglect. CN: Visual xavier full. No extinction to double simultaneous stimuli. No optic disc edema on fundoscopic exam. PERRLA OU. EOMI without nystagmus. Facial sensation intact to LT. Facial muscles full and symmetric. Hearing intact to conversation. Uvula midline with symmetric palatal elevation. Shoulder shrug normal. Tongue midline. MOTOR: Normal bulk and tone. No pronator drift. BUE strength 5/5 at deltoids, biceps, triceps, wrist flexors and extensors, and hand grasp s bilaterally. BLE strength 5/5 at iliopsoas, hamstrings, quadriceps, tibialis anterior, and gastrocnemius bilaterally. REFLEXES: 1+ at biceps, triceps, brachioradialis, 1+ right patella, did not want left patella examine 2/2 fracture and trace Achilles bilaterally. Flexor plantar responses bilaterally. SENSORY: Intact to LT without extinction to double simultaneous stimuli. Vibration and pinprick intact throughout. COORDINATION: No dysmetria or ataxia on [id number] bilaterally. Normal Zack bilaterally. GAIT: Normal gait and arm swing. Normal Romberg. Results & Data Vital Signs (Past 12 Hours) Vital Signs Temp Pulse Pulse Resp BP Pulse Ox 04/09/19 07:27 36.4 C L 77 18 152/92 H 96 04/09/19 03:44 36.4 C L 72 18 152/76 H 97 04/08/19 22:55 36.3 C L 66 16 162/85 H 96 04/08/19 22:54 57 L PG Care Time/CCT Total # of Minutes Spent Total Time Spent with Patient: Total time spent is greater than 50% in coordination of care (as documented) at patient's floor/unit and/or counseling patient:
[2019-04-09] MEDS ORDERED: ASPIRIN 81 MG ECTAB PO SCH (09:00)
[2019-04-09] MEDS ORDERED: STROKE PATIENT DISCHARGE STA (13:56)
--- NOTE | 2019-04-09 14:39 | Pharmacy Report ---
Pharmacist Stroke Counseling - Date of Service April 09, 2019 - Scope: Pharmacy has been consulted to provide medication discharge counseling for this patient admitted with transient ischemic attack as per the Pharmacist Discharge Counseling for Stroke Patients Protocol. - Medications on Discharge: Home Medications Medication Instructions Recorded Confirmed lorazepam 2 mg PO HS 06/05/18 04/08/19 ondansetron HCl 4 mg PO Q6 PRN 06/05/18 04/08/19 gabapentin 600 mg tablet 600 mg PO TID tab 03/22/19 04/08/19 losartan 25 mg tablet 25 mg PO DAILY 03/22/19 04/08/19 rizatriptan 10 mg PO UD PRN 04/08/19 04/08/19 New Rx's Medication Instructions Recorded aspirin 81 mg PO DAILY #30 tab 04/09/19 atorvastatin 40 mg PO HS #30 tab 04/09/19 clopidogrel [Plavix] 75 mg PO DAILY 21 Days #21 tab 04/09/19 - Action: The above medications, specifically ones for stroke treatment/prophylaxis, have been reviewed in detail with the patient prior to discharge. This includes indication, common adverse reactions, drug interactions, and medication administration. Medication counseling has been employed using the teach-back method to ensure understanding. - Outcome: The patient has demonstrated understanding of the medications. Please note, they are aware that the pharmacist will call them within 72 hours post-discharge to confirm that the appropriate medications are being taken and answer any further medication related questions the patient might have at that time. Contact information Individual to be contacted: self Relationship to patient (if applicable): -- Phone number: [phone] Best time to call: anytime Additional comments: -spoke at length with patient who is very pleasant -patient's father had very serious reactions to both Lipitor and Crestor ---> I counseled that this is not genetic but there are other options available. Perhaps in follow-up phone call provide some prevention methods? -patient's family asked about fish oil; counseled that it is not effect against LDL. -Patient asked about Maxalt --> counseled that this is recommended to be used with extreme caution and I would touch base with neurology regarding this. Thank you for allowing pharmacy to be involved in the care of this patient. Please call [phone] or [phone] with any additional questions
--- NOTE | 2019-04-09 17:43 | Discharge Summary ---
Date of Service April 09, 2019 Admission HPI Per Admitting Provider Patient is a 59-year-old female with history of hypertension, migraine, insomnia, h/o schwannoma S/P bilateral brachial plexus surgery, right ulnar nerve surgery and other problems presents with history of left upper extremity numbness/heaviness and left facial numbness associated with chest pain and dyspnea on exertion. Patient states that she ran out of her Ativan and was unable to sleep yesterday night. She admits to having nightmares overnight. She noticed to have left hand numbness associated with heaviness this a.m. at around 8 AM which later progressed to the whole left arm and left face. She states the symptoms lasted for about 2 to 3 hours. She believes she had some left leg weakness as well which lasted for only 5 minutes. She admits to taking aspirin 81 mg at home prior to coming to ER. She also reports having transient left-sided nonradiating chest discomfort associated with dyspnea on exertion this morning which resolved. She denies having any panic attacks. Also denies any history of palpitations, dizziness, diaphoresis, cough, fever, chills, fall, trauma, headache, change in vision, double/blurry vision, slurred speech, facial deformity, bowel/bladder incontinence, nausea, vomiting, abdominal pain, diarrhea, dysuria, recent change in medications. Admission Exam Per Admitting Provider General Appearance:Thin, no apparent distress Head: normocephalic, Atraumatic Eyes: normal inspection, EOMI Neck: supple, Trachea midline Respiratory/Chest: Normal breath sounds, CTA Cardiovascular: S1, S2, No murmur Abdomen/GI:Soft, Non tender, no guarding or rigidity, bowel sounds present Extremities/Musculoskelatal:normal inspection, no edema Neurologic/Psych:AAOX3, grossly no focal neurological deficits, intact sensory system Skin: normal color, warm, +Left knee surgical scar Principal Diagnosis Possible Transient Ischemic Attack Hypercholesterolemia Discharge Exam General: Well nourished, well hydrated, no acute distress Eyes: PERRL, conjunctivae normal, not pale, anicteric sclerae, EOM intact bilaterally ENMT: External ear and nose normal, oropharynx normal Neck: Normal visual inspection, no tracheal deviation, no swelling noted Respiratory: Normal respiratory effort, no respiratory distress, lungs clear to auscultation, no crackles and no wheezes Cardiovascular: Pulse is RRR. Heart Sounds: normal S1 and normal S2; no murmurs. Vessels: normal peripheral pulses Extremities: no pedal edema Chest (Breasts): Chest: normal inspection of chest Gastrointestinal (Abdomen): Abdomen is not distended, soft, non-tender to palpation, no guarding, no palpable hepatosplenomegaly, normal bowel sounds Musculoskeletal: No cyanosis or clubbing, all extremities motor strength 5/5 Skin: No rash noted on gross inspection, No ulcers noted Neurologic: Alert and oriented x 3, No focal weakness, sensation intact Psychiatric: Alert and oriented x 3, euthymic affect, no depressed affect Discharge Data Allergies Allergy/AdvReac Type Severity Reaction Status Date / Time chocolate flavor Allergy Severe HIVES Verified 04/08/19 11:06 diphenhydramine Allergy Intermediate CHEST Verified 04/08/19 11:06 PAIN, TACHYCARDIA oxycodone Allergy Intermediate hives Verified 04/08/19 11:06 tetracycline Allergy Mild HIVES Verified 04/08/19 11:06 acetaminophen [From [place]] AdvReac Intermediate ITCHING, Verified 04/08/19 11:06 WELTS hydrocodone [From [place]] AdvReac Intermediate ITCHING, Verified 04/08/19 11:06 WELTS codeine AdvReac Mild HEADACHES Verified 04/08/19 11:06 latex AdvReac Mild redness/itching/localized Verified 04/08/19 11:06 swelling Consultations 04/08/19 11:29 ED Decision to Admit Stat 04/08/19 13:32 Consult Case Management - Discharge Planning Routine Consult Neurology Routine Ordered Studies 04/08/19 09:47 CT angio chest PE protocol Stat No evidence of pulmonary embolus. No acute intrathoracic pathology. CT angio head w con Stat No evidence of aneurysm, focal vessel occlusion, or significant stenosis of the intracranial arteries. CT angio neck with con Stat No evidence of dissection, focal vessel occlusion, or significant stenosis of the cervical arteries. 04/08/19 11:37 CT head/brain wo con Stat No acute intracranial abnormality. 04/08/19 13:32 MR brain wo/w con Routine 1. Chronic small vessel ischemic change. 2. No acute intracranial pathology. No abnormal enhancement. Hospital Course (1) TIA (transient ischemic attack): Stroke Like Symptoms Possible TIA CT/MRI brain unremarkable for acute stroke Normal TSH B12 level was normal 287. A1c was 5.2. Echo was only remarkable for small pericardial effusion which patient reported was chronic Fasting Lipid panel showed hypercholesterolemia with Total cholesterol of 230 Patient symptoms resolved shortly after admission Evaluated by neurologist Discharged on aspirin 81mg daily, Plavix 75mg for 21 days and atorvastatin Chest Pain: Hypertensive urgency Likely secondary to anxiety as reported chest pressure started after onset of arm numbness and weakness CTA:No evidence of pulmonary embolus. No acute intrathoracic pathology. EKG did not show any acute ischemic changes and unchanged from prior Troponin was negative Resolved shortly after admission No event on telemetry monitoring Echo as noted above Hypercholesterolemia. Started on statin. Provided education on side effects. LFTs unremarkable BP was 183/113 on presentation, improved Continue home losartan Hypokalemia K was 3.3 on admission Repleted and normalized H/o schwannoma S/P bilateral brachial plexus surgery H/O Guyon Syndrome S/P right ulnar nerve surgery Total Time Total Time Spent Total Time Spent (In Minutes): 25 Total Time Includes: Examination of the Patient, Discharge Planning and Medication Reconciliation Discharge Plan Discharge Items Patient Disposition: Home - Self-Care Reason For Visit: STROKE LIKE SYMPTOMS Discharge Diagnosis: Possible Transient Ischemic Attack Hypercholesterolemia Condition on Discharge: Good Activity: Resume your previous activity Weightbearing: Full weightbearing Non-emergency contact: Primary Care Provider Call non-emergency contact if: you have any medication questions Follow-up/Referrals: Gilma Lan DO [Primary Care Provider] - Diet: Heart Healthy Addtl Attending Provider Instructions: Ms Carr You came to the hospital complaining of left hand numbness and weakness that spread to the face as well as chest pressure. This resolved after admission. You were evaluated extensively with multiple CT scan, CT angio and MRI which did not show any acute stroke. Your EKG (which assesses electrical activity of the heart) and heart enzymes (troponin) did not show any signs suggestive of a heart attack. Echo only showed small fluid around your heart which you reported is not new. Your total cholesterol level was also elevated. You were monitored overnight without incident. You were also evaluated by neurologist. You are being discharged on aspirin 81mg daily and atorvastatin 40mg daily. We discussed the need for these medications and their potential side effects. You also need to take plavix 75mg daily for only 21 days. Please take these medications as prescribed in the medication list. It is important you follow up with your Primary Doctor. Pending Studies at Discharge: No Stand-Alone Forms: Medications to Prevent Stroke, [facility], Smoking Cessation Medications and DC Order Prescriptions: New clopidogrel [Plavix] 75 mg tablet 75 mg PO DAILY 21 Days Qty: 21 RF: 0 aspirin 81 mg tablet,delayed release (DR/EC) 81 mg PO DAILY Qty: 30 RF: 0 atorvastatin 40 mg tablet 40 mg PO HS Qty: 30 RF: 0 Continued losartan [Cozaar] 25 mg tablet 25 mg PO DAILY RF: 0 ondansetron HCl 4 mg tablet 4 mg PO Q6 PRN (Reason: Nausea) RF: 0 lorazepam 2 mg tablet 2 mg PO HS RF: 0 gabapentin 600 mg tablet 600 mg PO TID RF: 0 rizatriptan 10 mg tablet,disintegrating 10 mg PO UD PRN (Reason: Migraine Headache) RF: 0 Discontinued Prilosec OTC 20 mg tablet,delayed release (DR/EC) 20 mg PO DAILY PRN (Reason: (Drug) Ingestion) RF: 0 Discharge Orders: Discharge Order (Routine); Ordered 04/09/19 Ordered By: Loraine Mckeon Admission Data Admit Date/Time: 04/08/19 12:39 Attending Provider: Loraine Mckeon I. Admit Provider: Axel Soni Primary Care Provider: Gilma Lan Other Providers: Axel Soni ; Kelle Daily Other Interventions: Discharge Summary Assessment (RN) Last Done: 04/09/19 14:05 DC Date/Time DO NOT enter until pt leaves facility: 04/09/19 15:18
--- NOTE | 2019-04-12 10:56 | Pharmacy Report ---
Pharmacist Post D/C Phone Note - Phone Note: Date of phone call: April 12, 2019. Individual with whom pharmacist spoke to: ALYSHA ULLOA The following questions were reviewed during the phone call with responses listed below each: Can you tell me the medications that you are currently taking as well as when and how you take each medication? -See Table Below When have you missed any doses of your medications? - None What side effects are you having from your medications, specifically, the new medications you were started on? - Patient complains of mild generalized weakness and less clear vision than usual. The patient is not concerned about either of these things, but wondered if they might be related to the medications. I expressed that this was unlikely, as she was not having any corresponding muscle weakness/pain. Patient will follow-up with PCP regarding this symptoms and seek emergent medical attention if they become alarming. What questions do you have about your medications? - Patient again asked whether or not it would be okay for her to take Maxalt following her TIA. Again expressed that Maxalt is not recommended post stroke/TIA. Recommended following up with her neurologist, which she was agreeable to. What problems are you having obtaining your medications? - None When is your next appointment with your primary care doctor? - Patient stated that she is calling both her PCP and neurologist today to make appointments. Additional comments: - Patient familiar with new medications and instructions for use. Aware that aspirin and clopidogrel will only be for 21 days and then she will stop clopidogrel and be on aspirin only. As per the Pharmacist Discharge Counseling for Stroke Patients Protocol, this phone call has been completed within 72 hours of discharge. Thank you for allowing us to be involved in the care of this patient. - Home Medications: Home Medications Medication Instructions Recorded Confirmed lorazepam 2 mg PO HS 06/05/18 04/08/19 ondansetron HCl 4 mg PO Q6 PRN 06/05/18 04/08/19 gabapentin 600 mg tablet 600 mg PO TID tab 03/22/19 04/08/19 losartan 25 mg tablet 25 mg PO DAILY 03/22/19 04/08/19 rizatriptan 10 mg PO UD PRN 04/08/19 04/08/19 New Rx's Medication Instructions Recorded aspirin 81 mg PO DAILY #30 tab 04/09/19 atorvastatin 40 mg PO HS #30 tab 04/09/19 clopidogrel [Plavix] 75 mg PO DAILY 21 Days #21 tab 04/09/19
--- NOTE | 2019-04-23 08:09 | Coding Query ---
DIAGNOSIS CLARIFICATION Possible Transient Ischemia Attack is documented on the discharge summary. In an outpatient/observation setting, diagnoses of possible, rule out and suspected cannot be coded. Please provide further clarification of the diagnosis of TIA during this admission: ( ) TIA was present during this admission. ( ) TIA was not present during this admission. ( x ) It cannot be determined whether or not a TIA was present during this admission. ( ) Other, please clarify: Thank you for your assistance, Tanja Pradhan - Multimedia Author LATHA
== END 2019-04-09 15:18 | disposition home or self-care (01) ==
LOC: 2S 09:34 → ED 09:34 → SUATTDRO 12:39 → 2S 13:09

== ENCOUNTER 2023-03-25 11:18 | Inpatient (IN) ==
--- NOTE | 2023-03-25 11:54 | Emergency Department Note ---
Impression & Plan Hypertension, Chest pain ED Provider Note NAME: ALYSHA ULLOA AGE: 62 SEX: F : 1960 ARRIVES VIA: Walk-In INFORMANT: Patient, ED PROVIDER(S): Torin Falcon MD CHIEF COMPLAINT: Hypertension HPI: This is a 62-year-old female with history of hypertension, migraines, GERD, TIA presenting for hypertension. 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 Patient was complaining of chest pain and headaches for the past 2 months. She has not that her symptoms are more exertional, worsening shortness of breath and chest pain when she is walking. Otherwise she notes no nausea or vomiting. No fevers or chills recently. ROS: See above HPI for pertinent positives & negatives. A total of 10 systems reviewed and were otherwise negative. PAST MEDICAL HISTORY: See Below PAST SURGICAL HISTORY: See Below FAMILY HISTORY: See Below SOCIAL HISTORY: See Below HOME MEDICATIONS: See Below ALLERGIES: See Below VITALS: See Below PHYSICAL EXAMINATION: General: resting comfortably in no acute distress Head: Normocephalic and atraumatic Eyes: Normal inspection, extraocular muscles intact Ear, nose, throat: Normal external exam Neck: Normal range of motion Respiratory: lungs clear to auscultation bilaterally Cardiovascular: Regular rate/rhythm, no murmur GI: soft, nontender, no guarding or rebound Extremities: nontender, moves all extremities Neuro: The patient awake and alert, appropriately conversive, no focal deficits, symmetric faces Skin: Warm, dry, and intact MEDICAL DECISION MAKING: This is a 62-year-old female history of hypertension, migraines, GERD and TIA presenting for hypertension from cardiology office. Patient was sent in by cardiology for elevated blood pressures above 210 systolic. At this time we will do screening work-up for endorgan ischemia. Patient has no active chest pain only when she is walking. She has no leukocytosis, anemia, electrolyte disturbances, creatinine elevation, no LFT elevation, negative troponin. EKG is done and similar to previous. Official interpretation below. -I reviewed cardiology note, Dr. Rosales, note from 03/25 explaining patient's symptoms, work-up and plan. Including possible clonidine administration in the inpatient setting. -Dr. Rosales did call me directly and explained his concerns and is requesting admission for hypertensive work-up/management. [facility] Triage Nursing notes reviewed. Prior medical records reviewed Vital Signs: reviewed and remarkable for no significant abnormalities Differential diagnosis: Hypertensive emergency, ACS, PE ER treatment provided: See below Diagnostics interpreted by me: ECG: ECG independently interpreted by me with sinus bradycardia, rate of 56, normal GA, normal QRS, normal QTc, no ST segment elevations consistent with STEMI criteria Cardiac Monitoring: An order was placed for continuous cardiac monitoring. The monitor shows a rate of 57 with sinus rhythm. Laboratory studies: As stated above and show below. Imaging studies: See below. 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. PREVIOUSLY TOLD AT [facility] AND [facility]. History of open reduction and internal fixation (ORIF) procedure CLAVICLE WITH HARDWARE REMOVAL History of tonsillectomy History of colonoscopy History of surgery Excision of schwannoma from brachial plexus x2 History of appendectomy History of total hysterectomy BOLA WITH BSO History of decompression of ulnar nerve x 3 History of cholecystectomy Family History Father Coronary heart disease CHF (congestive heart failure) Mother Lymphoma Postoperative nausea Sister Postoperative nausea Other Cancer Heart disease Hypertension No family history of adverse response to anesthesia No family history of bleeding disorder Social History Smoking Status: Never smoker Second Hand Exposure: No; Do You Dip or Chew Tobacco: No; Hx Alcohol Use: No Hx Substance Use: No Preferred Language: Brazilian Communication Ability: Effective Visual Impairment: No Limitations Clinical Statistics Manager Required: No Beliefs That Will Affect Care: None marital status: Current Living Situation: Alone Other Information That Helps Us Care for You: No Feels Safe at Home: Yes Safety Concerns: Feels Safe At This Time Assistive Devices: Glasses Allergies Allergies Allergy/AdvReac Type Severity Reaction Status Date / Time chocolate flavor Allergy Severe HIVES Verified 03/25/23 13:07 diphenhydramine Allergy Intermediate CHEST Verified 03/25/23 13:07 PAIN, TACHYCARDIA oxycodone Allergy Intermediate hives Verified 03/25/23 13:07 tetracycline Allergy Mild HIVES Verified 03/25/23 13:07 clopidogrel [From Plavix] AdvReac Severe facial Verified 03/25/23 13:07 rash & chest pain hydrocodone [From [place]] AdvReac Intermediate ITCHING, Verified 03/25/23 13:07 WELTS Stsydvy-HJO-WvW Reductase AdvReac Intermediate myalgia in Verified 03/25/23 13:07 Inhibitor legs [[id number]-Ivq Reductase Inhibitor] codeine AdvReac Mild HEADACHES Verified 03/25/23 13:07 latex AdvReac Mild redness/itching/localized Verified 03/25/23 13:07 swelling amlodipine [From Norvasc] AdvReac leg Verified 03/25/23 13:11 swelling chlorthalidone AdvReac vomiting, Verified 03/25/23 13:11 diarrhea hydrochlorothiazide AdvReac vomiting, Verified 03/25/23 13:11 diarrhea Home Meds Home Medications Medication Instructions Recorded Confirmed lorazepam 2 mg tablet 2 mg PO HS anxiety 06/05/18 03/25/23 multivitamin 1 tab PO QAM 10/20/20 03/25/23 losartan 100 mg tablet 100 mg PO QAM 08/27/22 03/25/23 clotrimazole 1 % topical cream 1 applic topical BID PRN Other 02/11/23 03/25/23 famotidine 20 mg tablet 20 mg PO PM 02/11/23 03/25/23 gabapentin 250 mg/5 mL oral 500 mg PO .QAFTERNOON 02/11/23 03/25/23 solution loratadine 5 mg/5 mL oral solution 5 mg PO DAILY Allergy Symptoms 02/11/23 03/25/23 (Claritin) pantoprazole 40 mg tablet,delayed 40 mg PO QAM 02/11/23 03/25/23 release silver sulfadiazine 1 % topical 1 applic topical DAILY PRN Other 02/11/23 03/25/23 cream metoprolol succinate 25 mg 50 mg PO PM 02/25/23 03/25/23 tablet,extended release 24 hr rimegepant 75 mg disintegrating 75 mg PO ONCE PRN Migraine Headache 02/25/23 03/25/23 tablet (Nurtec ODT) acetaminophen 160 mg/5 mL oral 0 mg PO QID PRN Pain 03/25/23 03/25/23 elixir lorazepam 1 mg tablet 1 mg PO QAM 03/25/23 03/25/23 Previous Rx's Medication Instructions Recorded ondansetron HCl 4 mg tablet See Rx Instructions PO TID PRN 03/20/21 Nausea #30 tabs Results & Data (ED) Vital Signs Vital Signs - 24 hr 03/25/23 11:25 03/25/23 12:38 03/25/23 12:40 Temperature 36.8 C Temperature Source Temporal Artery Scan Pulse Rate 69 60 Pulse Rate [Left Apical] 59 L Pulse Rhythm Regular Respiratory Rate 20 20 Respiratory Effort / Characteristics Non-Labored Spontaneous Non-Labored Respiratory Depth Normal Normal Blood Pressure 220/100 H Blood Pressure [Left Arm] 217/99 H Blood Pressure Mean 140 Blood Pressure Mean [Left Arm] 138 Pulse Oximetry 99 98 Oxygen Delivery Method Room Air Room Air Sepsis Recent Fever Within 48 Hours No Sepsis New/Unexplained Change in Mental Status No Sepsis Action Taken by Nursing No Action Required 03/25/23 13:00 03/25/23 13:15 03/25/23 13:15 Temperature Temperature Source Pulse Rate 59 L 58 L Pulse Rate [Left Apical] 64 Pulse Rhythm Respiratory Rate 15 19 Respiratory Effort / Characteristics Respiratory Depth Blood Pressure 219/105 H 219/102 H Blood Pressure [Left Arm] 219/102 H Blood Pressure Mean 143 141 Blood Pressure Mean [Left Arm] 141 Pulse Oximetry 97 97 Oxygen Delivery Method Room Air Room Air Sepsis Recent Fever Within 48 Hours Sepsis New/Unexplained Change in Mental Status Sepsis Action Taken by Nursing 03/25/23 13:43 03/25/23 13:43 03/25/23 13:57 Temperature Temperature Source Pulse Rate 67 66 65 Pulse Rate [Left Apical] Pulse Rhythm Respiratory Rate 18 Respiratory Effort / Characteristics Respiratory Depth Blood Pressure 213/108 H 213/108 H 190/89 H Blood Pressure [Left Arm] Blood Pressure Mean 143 Blood Pressure Mean [Left Arm] Pulse Oximetry 97 Oxygen Delivery Method Room Air Sepsis Recent Fever Within 48 Hours Sepsis New/Unexplained Change in Mental Status Sepsis Action Taken by Nursing 03/25/23 13:57 03/25/23 14:00 Temperature Temperature Source Pulse Rate 67 63 Pulse Rate [Left Apical] Pulse Rhythm Respiratory Rate 16 16 Respiratory Effort / Characteristics Respiratory Depth Blood Pressure 190/89 H 191/93 H Blood Pressure [Left Arm] Blood Pressure Mean 122 125 Blood Pressure Mean [Left Arm] Pulse Oximetry 97 99 Oxygen Delivery Method Room Air Room Air Sepsis Recent Fever Within 48 Hours Sepsis New/Unexplained Change in Mental Status Sepsis Action Taken by Nursing Laboratory Data 03/25/23 12:14 03/25/23 12:14 Lab Results 03/25/23 Range/Units 12:14 WBC 5.33 (4.8-10.8) K/ul RBC 4.67 (4.20-5.40) M/uL Hgb 13.7 (12.0-16.0) g/dl Hct 39.8 (37.0-47.0) % MCV 85.2 (80.0-100.0) fL MCH 29.3 (25.0-34.0) pg MCHC 34.4 (32.0-36.0) g/dL RDW Std Deviation 41.3 (36.4-46.3) fL RDW Coeff of Terra 13.4 (11.5-14.5) % Plt Count 189 (130-400) K/uL MPV 9.7 (9.4-12.4) fL Immature Gran % (Auto) 0.2 % Neut % (Auto) 66.3 % Lymph % (Auto) 23.3 % Dixie % (Auto) 8.8 % Eos % (Auto) 0.8 % Baso % (Auto) 0.6 % Neut # (Auto) 3.54 (1.40-6.50) K/uL Lymph # (Auto) 1.24 (1.20-3.40) K/uL Dixie # (Auto) 0.47 (0.11-0.59) K/uL Eos # (Auto) 0.04 (0.00-0.50) K/uL Baso # (Auto) 0.03 (0.00-0.20) K/uL Immature Gran # (Auto) 0.01 (0.01-0.20) K/uL Sodium 141 (136-145) mmol/L Potassium 3.5 (3.5-5.1) mmol/L Chloride 103 (98-107) mmol/L Carbon Dioxide 33 H (21-32) mmol/L Anion Gap 5 (3-11) BUN 11 (6-23) mg/dl Creatinine 0.66 (0.6-1.2) mg/dl Est Cr Clr Drug Dosing 67.7 ml/min Est GFR ( Amer) 108.2 ml/min Est GFR (Non-Af Amer) 93.4 ml/min BUN/Creatinine Ratio 16.7 (10-20) Glucose 94 (70-99(Fasting)) mg/dl Calcium 9.8 (8.6-10.3) mg/dl Total Bilirubin 1.2 H (0.2-1.0) mg/dl AST 20 (13-39) U/L ALT 11 (7-52) U/L Alkaline Phosphatase 51 (34-104) U/L Troponin I High Sens < 2.3 (0-14) pg/ml C-Reactive Protein < 0.50 (0-0.5) mg/dl Total Protein 7.1 (6.0-8.3) gm/dl Albumin 4.5 (3.4-5.0) gm/dl Globulin 2.6 (2.5-4.0) gm/dl Albumin/Globulin Ratio 1.7 (0.9-2) Lipase 40 (11-82) U/L Administered Medications Nitroglycerin (Nitroglycerin 2% Ointment 30gm Tube) 0.5 inch EXT Q6H [facility] Stop: 04/24/23 17:44 Last Admin: 03/25/23 18:23 Dose: 0.5 inch Documented By: SS Discontinued Medications Clonidine HCl (Clonidine Hcl 0.1 Mg Tab) 0.1 mg PO NOW ONE Stop: 03/25/23 16:33 Last Admin: 03/25/23 17:27 Dose: 0.1 mg Documented By: SS Hydralazine HCl (Hydralazine Hcl 20 Mg/Ml Vial) 10 mg IV NOW STA Stop: 03/25/23 17:43 Last Admin: 03/25/23 18:24 Dose: 10 mg Documented By: RAMANDEEP Ioversol (Optiray 320 500ml) 110 ml IV ONCE ONE Stop: 03/25/23 16:24 Last Admin: 03/25/23 16:23 Dose: 110 ml Documented By: ROSA ISELA Labetalol HCl (Labetalol Hcl Iv 5 Mg/Ml 20ml) 10 mg IV NOW STA Stop: 03/25/23 13:11 Last Admin: 03/25/23 13:43 Dose: 10 mg Documented By: JALEN Co-signed By: SREEKANTH Labetalol HCl (Labetalol Hcl Iv 5 Mg/Ml 20ml) 10 mg IV NOW STA Stop: 03/25/23 14:32 Last Admin: 03/25/23 14:56 Dose: 10 mg Documented By: SREEKANTH Co-signed By: DEBBIE Imaging Data Radiologist's Impression: Chest X-Ray 03/25/23 11:20 XR chest 1V portable CLINICAL HISTORY: Chest pain, nonspecific COMPARISON STUDY: Chest CT April 08, 2019. Chest CT February 11, 2023. FINDINGS: Lung volumes are normal. Lungs are clear. There is no pneumothorax or pleural effusion. Cardiac size is normal. Mediastinal contours are normal. There is no evidence for pulmonary edema. Nipple shadows project over the lower chest. IMPRESSION: No acute cardiopulmonary findings. ACT 112: Negative or not required by law. Electronically signed by: Fabian Dong M.D. 03/25/2023 12:39 PM Discharge Plan Visit Data Chief Complaint: Cardiac Assessment Stated Complaint: DOC REF,HYPERTENSION,CHEST PAIN,HEADACHE, ED Provider: Torin Falcon Discharge Problem: Hypertension, Chest pain Patient Disposition: Admitted As Inpatient Discharge Instructions Interventions: ED Discharge Assessment Last Done: 03/25/23 16:04
[2023-03-25 12:31] LABS: Basophils # (auto) 0.03 K/uL (0.00-0.20); Basophils % (auto) 0.6 %; Eosinophils # (auto) 0.04 K/uL (0.00-0.50); Eosinophils % (auto) 0.8 %; Hematocrit (blood only) 39.8 % (37.0-47.0); Hemoglobin 13.7 g/dl (12.0-16.0); Immature Granulocytes # (auto) 0.01 K/uL (0.01-0.20); Immature Granulocytes % (auto) 0.2 %; Lymphocytes # (auto) 1.24 K/uL (1.20-3.40); Lymphocytes % (auto) 23.3 %; Mean Corpuscular Hemoglobin 29.3 pg (25.0-34.0); Mean Corpuscular Hgb Conc 34.4 g/dL (32.0-36.0); Mean Corpuscular Volume 85.2 fL (80.0-100.0); Mean Platelet Volume 9.7 fL (9.4-12.4); Monocytes # (auto) 0.47 K/uL (0.11-0.59); Monocytes % (auto) 8.8 %; Neutrophils # (auto) 3.54 K/uL (1.40-6.50); Neutrophils % (auto) 66.3 %; Platelet Count 189 K/uL (130-400); RDW Coefficient of Variation 13.4 % (11.5-14.5); RDW Standard Deviation 41.3 fL (36.4-46.3); Red Blood Count 4.67 M/uL (4.20-5.40); White Blood Count 5.33 K/ul (4.8-10.8)
--- NOTE | 2023-03-25 12:40 | XRay Report ---
XR chest 1V portable CLINICAL HISTORY: Chest pain, nonspecific COMPARISON STUDY: Chest CT April 08, 2019. Chest CT February 11, 2023. FINDINGS: Lung volumes are normal. Lungs are clear. There is no pneumothorax or pleural effusion. Car diac size is normal. Mediastinal contours are normal. There is no evidence for pulmonary edema. Nippl e shadows project over the lower chest. IMPRESSION: No acute cardiopulmonary findings. ACT 112: Negative or not required by law. Electronically signed by: Fabian Dong M.D. 03/25/2023 12:39 PM
[2023-03-25 12:45] LABS: Alanine Aminotransferase 11 U/L (7-52); Albumin Globulin Ratio 1.7 (0.9-2); Albumin Level 4.5 gm/dl (3.4-5.0); Alkaline Phosphatase 51 U/L (34-104); Anion Gap 5 (3-11); Aspartate Aminotransferase 20 U/L (13-39); BUN Creatinine Ratio 16.7 (10-20); Bilirubin,Total 1.2 mg/dl (0.2-1.0); Blood Urea Nitrogen 11 mg/dl (6-23); Calcium 9.8 mg/dl (8.6-10.3); Carbon Dioxide 33 mmol/L (21-32); Chloride 103 mmol/L (98-107); Creatinine Clr Calc Pharmacy 67.7 ml/min; Est GFR (African American) 108.2 ml/min; Est GFR (Non-African American) 93.4 ml/min; Globulin 2.6 gm/dl (2.5-4.0); Glucose 94 mg/dl (70-99(Fasting)); Lipase 40 U/L (11-82); Potassium 3.5 mmol/L (3.5-5.1); Sodium 141 mmol/L (136-145); Total Protein 7.1 gm/dl (6.0-8.3)
[2023-03-25] MEDS: LABETALOL HCL IV 5 MG/ML 20ML IV STA ×2 (13:17→13:43)
[2023-03-25] MEDS ORDERED: LABETALOL HCL IV 5 MG/ML 20ML IV STA (14:31)
[2023-03-25 14:41] LABS: Troponin I High Sensitivity < 2.3 pg/ml (0-14)
--- NOTE | 2023-03-25 14:56 | History & Physical Report ---
Date of Service March 25, 2023 Assessment & Plan (1) Hypertensive urgency: Plan This is a 62-year-old female who has a significant past medical history of hypertension, migraine, chronic ulnar nerve palsy and currently disabled for such who presented to ED at the referral of cardiology due to resistant HTN. HTN Urgency Chest Pressure obtain CTA chest r/o dissection prior to admission echocardiogram consult cardiology she received 2 - 10mg IV labetalol doses with mild improvement in pressure, 170s/90s obtain renal vascular US obtain TSH, ESR, CRP, fractionated metanephrines and catecholamines, aldosterone, renin previously has not tolerated amlodipine, HCTZ or chlorthalidone will trial clonidine 0.1mg now and daily at HS; also start lasix 20mg daily monitor closely Hx of migraines follows Dr. Villalta chronic, stable Chronic ulnar nerve palsy s/p multiple decompressions follows Dr. Suresh at [facility] ortho wears Limb restricting bracelet b/c of this; however spoke with staff at [place] who states this is not indicated and she can have IV access Chronic Dysphagia follows GI needs pills crushed or with yogurt on PPI, pepcid DVT ppx: Lovenox Full Code PCP: Karolina Pearson Dispo: admit to PCU after CTA obtained Pt was seen and examined in collaboration with Dr. Thurston, please see addendum History of Present Illness Chief Complaint: Referral by cardiology secondary to hypertensive urgency. Primary Care Provider: Karolina Carranza PA-C This is a 62-year-old female who has a significant past medical history of hypertension, migraine, chronic ulnar nerve palsy and currently disabled for such who presented to ED at the referral of cardiology due to resistant HTN. Of significance patient has been in her normal state of health until December. She states in December her blood pressure has been relatively well controlled. She did have significant episode of stress in January and February which prompted her lorazepam dose in the morning. At this point time she feels her stressor has since been controlled; however, her significantly elevated blood pressure also has her anxious as well. Over the last 2 months that she has been noticing chest pressure substernally, nonradiating with exertion. Symptoms tend to come and go. She also is been complaining of a worsening of frontal headache. This feels different than her typical migraine headache. The headache tends to come and go and also is mostly in the temporal region. She otherwise denies any recent illness, fever, chills, sweats, lightheadedness, dizziness, change in hearing, change in vision, tinnitus, shortness of breath, palpitations, nausea, vomiting, abdominal pain or change in her bowel or urinary habits. She further denies any URI symptoms, cough or hemoptysis. She denies significant NSAID use, she denies tobacco or alcohol products or excessive salt consumption. Outpatient cardiology note was reviewed thoroughly in detail patient's prior history of hypertension and treatment history. She does not tolerate amlodipine or thiazide diuretics. She also has difficulty with dysphagia for which she follows GI for. She mostly has to cut her medications in half for take with yogurt. Currently she is maintained on losartan 100 mg daily as well as metoprolol succinate 50 mg daily. On 02/05/2023 is when she was initially prescribed metoprolol succinate at 12.5 mg daily. She was then seen in the ED on 02/11/2023 and her metoprolol has since been titrated to 50 mg daily. In cardiology clinic today her initial blood pressure was 210/96, after resting for 20 minutes and performed manually in her left arm it measured 200/100. This was also after taking her losartan this morning as well as 1 mg of lorazepam. Allergies Allergy/AdvReac Type Severity Reaction Status Date / Time chocolate flavor Allergy Severe HIVES Verified 03/25/23 13:07 diphenhydramine Allergy Intermediate CHEST Verified 03/25/23 13:07 PAIN, TACHYCARDIA oxycodone Allergy Intermediate hives Verified 03/25/23 13:07 tetracycline Allergy Mild HIVES Verified 03/25/23 13:07 clopidogrel [From Plavix] AdvReac Severe facial Verified 03/25/23 13:07 rash & chest pain hydrocodone [From [place]] AdvReac Intermediate ITCHING, Verified 03/25/23 13:07 WELTS [id number] Reductase AdvReac Intermediate myalgia in Verified 03/25/23 13:07 Inhibitor legs [Ymkodgs-Bws-Voe Reductase Inhibitor] codeine AdvReac Mild HEADACHES Verified 03/25/23 13:07 latex AdvReac Mild redness/itching/localized Verified 03/25/23 13:07 swelling amlodipine [From Norvasc] AdvReac leg Verified 03/25/23 13:11 swelling chlorthalidone AdvReac vomiting, Verified 03/25/23 13:11 diarrhea hydrochlorothiazide AdvReac vomiting, Verified 03/25/23 13:11 diarrhea Home Medications Medication Instructions Recorded Confirmed Type lorazepam 2 mg tablet 2 mg PO HS anxiety 06/05/18 03/25/23 History multivitamin 1 tab PO QAM 10/20/20 03/25/23 History ondansetron HCl 4 mg tablet See Rx Instructions PO TID PRN 03/20/21 03/25/23 Rx Nausea #30 tabs losartan 100 mg tablet 100 mg PO QAM 08/27/22 03/25/23 History clotrimazole 1 % topical cream 1 applic topical BID PRN Other 02/11/23 03/25/23 History famotidine 20 mg tablet 20 mg PO PM 02/11/23 03/25/23 History gabapentin 250 mg/5 mL oral 500 mg PO .QAFTERNOON 02/11/23 03/25/23 History solution loratadine 5 mg/5 mL oral solution 5 mg PO DAILY Allergy Symptoms 02/11/23 03/25/23 History (Claritin) pantoprazole 40 mg tablet,delayed 40 mg PO QAM 02/11/23 03/25/23 History release silver sulfadiazine 1 % topical 1 applic topical DAILY PRN Other 02/11/23 03/25/23 History cream metoprolol succinate 25 mg 50 mg PO PM 02/25/23 03/25/23 History tablet,extended release 24 hr rimegepant 75 mg disintegrating 75 mg PO ONCE PRN Migraine Headache 02/25/23 03/25/23 History tablet (Nurtec ODT) acetaminophen 160 mg/5 mL oral 0 mg PO QID PRN Pain 03/25/23 03/25/23 History elixir lorazepam 1 mg tablet 1 mg PO QAM 03/25/23 03/25/23 History Past Med/Surg History Medical History Difficulty in swallowing Postoperative nausea History of esophageal dilatation Fibromyalgia GERD (gastroesophageal reflux disease) no meds at present; reason for EGD 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. PREVIOUSLY TOLD AT [facility] AND [facility]. History of open reduction and internal fixation (ORIF) procedure CLAVICLE WITH HARDWARE REMOVAL History of tonsillectomy History of colonoscopy History of surgery Excision of schwannoma from brachial plexus x2 History of appendectomy History of total hysterectomy BOLA WITH BSO History of decompression of ulnar nerve x 3 History of cholecystectomy Family History Father Coronary heart disease CHF (congestive heart failure) Mother Lymphoma Postoperative nausea Sister Postoperative nausea Other Cancer Heart disease Hypertension No family history of adverse response to anesthesia No family history of bleeding disorder Social History Smoking Status: Never smoker Second Hand Exposure: No; Do You Dip or Chew Tobacco: No; Hx Alcohol Use: No Hx Substance Use: No Preferred Language: Kyrgyz Communication Ability: Effective Visual Impairment: No Limitations Actimize Architect Required: No Beliefs That Will Affect Care: None marital status: Current Living Situation: Alone Other Information That Helps Us Care for You: No Feels Safe at Home: Yes Safety Concerns: Feels Safe At This Time Assistive Devices: Glasses Review of Systems Review of Systems: All systems reviewed & are unremarkable except as noted in HPI & below Physical Exam Physical Exam: Constitutional: WD/WN, vitals as above, NAD, sitting up in bed, pleasant, conversing easily Head: Normocephalic, Atraumatic Eyes: PERRL, conjunctivae normal, anicteric sclerae ENMT: external ear and nose normal, oropharynx normal Neck: trachea midline, no thyromegaly normal visual inspection Respiratory: normal respiratory effort, lungs clear to auscultation, no wheeze, rales, rhonchi. Normal insp/exp effort, no accessory muscle use Cardiovascular: RRR, no murmur, no edema Vessels: no JVD or carotid bruit Chest: normal inspection of chest Abdomen: normal bowel sounds, soft, nontender, no hepatosplenomegaly Musculoskeletal: no cyanosis or clubbing, extremities motor strength 5/5 Skin: no rashes, warm and dry normal turgor Neurologic: PERRL, EOMI, accommodation nl, no face palsy, no dysarthria CN's II-XI intact bilaterally and moves all extremities Psychiatric: A+Ox3, euthymic affect Lymphatic: no cervical or axillary lymphadenopathy : deferred Results & Data Results & Data Vital Signs (Past 12 Hours) Vital Signs Temp Pulse Pulse Resp BP BP Pulse Ox 03/25/23 13:57 65 190/89 H 03/25/23 13:43 67 213/108 H 03/25/23 13:15 64 219/102 H 03/25/23 13:00 59 L 15 219/105 H 97 03/25/23 12:40 60 03/25/23 12:38 59 L 20 217/99 H 98 03/25/23 11:25 36.8 C 69 20 220/100 H 99 O2 Del Method 03/25/23 13:57 03/25/23 13:43 03/25/23 13:15 03/25/23 13:00 Room Air 03/25/23 12:40 03/25/23 12:38 Room Air 03/25/23 11:25 Room Air Diagnostic Findings Chest X-Ray 03/25/23 11:20 XR chest 1V portable CLINICAL HISTORY: Chest pain, nonspecific COMPARISON STUDY: Chest CT April 08, 2019. Chest CT February 11, 2023. FINDINGS: Lung volumes are normal. Lungs are clear. There is no pneumothorax or pleural effusion. Cardiac size is normal. Mediastinal contours are normal. There is no evidence for pulmonary edema. Nipple shadows project over the lower chest. IMPRESSION: No acute cardiopulmonary findings. ACT 112: Negative or not required by law. Electronically signed by: Fabian Dong M.D. 03/25/2023 12:39 PM Medications Administered Medication List Discontinued Medications Labetalol HCl (Labetalol Hcl Iv 5 Mg/Ml 20ml) 10 mg IV NOW STA Stop: 03/25/23 13:11 Last Admin: 03/25/23 13:43 Dose: 10 mg Documented By: JALEN Co-signed By: [facility] ECG Additional Comments: 56 Sinus Bradycardia, qtc 434s, no ST t wave changes COVID-19 Results Results COVID-19 Adm Lab Results: RBC 4.67 M/uL (4.20-5.40) 03/25/23 WBC 5.33 K/ul (4.8-10.8) 03/25/23 Hgb 13.7 g/dl (12.0-16.0) 03/25/23 Hct 39.8 % (37.0-47.0) 03/25/23 Plt Count 189 K/uL (130-400) 03/25/23 Neutrophils (%) (Auto) 66.3 % 03/25/23 Lymphocytes (%) (Auto) 23.3 % 03/25/23 Monocytes # (Auto) 0.47 K/uL (0.11-0.59) 03/25/23 Eosinophils # (Auto) 0.04 K/uL (0.00-0.50) 03/25/23 Immature Granulocyte % (Auto) 0.2 % 03/25/23 Neutrophils # (Auto) 3.54 K/uL (1.40-6.50) 03/25/23 Lymphocytes # (Auto) 1.24 K/uL (1.20-3.40) 03/25/23 Monocytes # (Auto) 0.47 K/uL (0.11-0.59) 03/25/23 Eosinophils # (Auto) 0.04 K/uL (0.00-0.50) 03/25/23 Basophils # (Auto) 0.03 K/uL (0.00-0.20) 03/25/23 Immature Granulocyte # (Auto) 0.01 K/uL (0.01-0.20) 3 Na 141 mmol/L (136-145) 03/25/23 K 3.5 mmol/L (3.5-5.1) 03/25/23 Cl 103 mmol/L (98-107) 03/25/23 CO2 33 mmol/L (21-32) H 03/25/23 Anion Gap 5 (3-11) 03/25/23 BUN 11 mg/dl (6-23) 03/25/23 Creatinine 0.66 mg/dl (0.6-1.2) 03/25/23 BUN/Creatinine Ratio 16.7 (10-20) 03/25/23 Glucose Level 94 mg/dl (70-99(Fasting)) 03/25/23 Ca 9.8 mg/dl (8.6-10.3) 03/25/23 Total Bilirubin 1.2 mg/dl (0.2-1.0) H 03/25/23 AST/SGOT 20 U/L (13-39) 03/25/23 ALT/SGPT 11 U/L (7-52) 03/25/23 Alkaline Phosphatase 51 U/L (34-104) 03/25/23 Total Protein 7.1 gm/dl (6.0-8.3) 03/25/23 Albumin 4.5 gm/dl (3.4-5.0) 03/25/23 Globulin 2.6 gm/dl (2.5-4.0) 03/25/23 Albumin/Globulin Ratio 1.7 (0.9-2) 03/25/23 CRP < 0.50 mg/dl (0-0.5) 03/25/23 Chest X-Ray 03/25/23 Code Status & VTE Plan Code Status Full Code VTE Prophylaxis Plan VTE Prophylaxis will be ordered: Yes Supervising Physician Co-Signing Physician Notes I have seen and examined the patient and have discussed the case with the provider above. I agree with the assessment and plan as stated with the following exceptions. Patient is a 62-year-old female with accelerated rise in blood pressure over the last 4 to 6 weeks. She notes multiple times during her history that symptoms of chest pain nightmares insomnia headaches and other nonspecific symptoms began when she was put on Toprol XL. She has a significant history of sensitivities to medications. Metoprolol was not stopped but instead increased and is now being taken at a dose of 50 mg nightly. She reports her headache and chest pressure still present and her blood pressure is critically elevated today with a high of 220/100. She was given labetalol 20 IV in the ER with no improvement in her blood pressure still 214/92. After getting up in the room she was able to take a clonidine 0.1 mg p.o. and was given an additional hydralazine 10 mg IV with Nitropaste to chest wall. Repeat blood pressure was 147/80. The patient notes a history of diarrhea with chlorthalidone and has responded poorly to HCTZ prior to that. She had another issue with amlodipine as noted above. She denies any flushing night sweats abdominal pain and feels rested when she awakens from sleep. On exam she is thin but does not appear malnourished. She is hemodynamically stable and afebrile and oxygenating well on room air. Cardiac exam reveals S1-S2 heard with regular rate and rhythm and no evidence of murmurs gallops or rubs. She has no evidence of peripheral edema and appears euvolemic. She has no gross focal neuromuscular deficits and is mentating clearly. Lungs are clear to auscultation bilaterally. Skin is warm and dry. Chest x-ray is clear. Lab work reveals a normal CBC normal BMP normal liver panel negative troponin negative CRP negative lipase. Renal artery duplex revealed no evidence of renal artery stenosis. A chest CTA ruled out thoracic aortic dissection. No other evidence of pulmonary emboli or pneumonia was present. An EKG revealed sinus bradycardia with no changes suggestive of ACS. 1. Hypertensive urgency 2. Possible medication side effect 3. Atypical part chest pressure We reached the initial blood pressure goal of 147/80 with therapy noted above. Agree with work-up for secondary causes. She does not have any dietary changes or supplements that may be contributing to the rise in BP, she did however note a stressful event in her life in mid February. It is questionable whether or not she has a good handle on her anxiety. She is in the process of speaking with her PCP regarding starting an SSRI. As patient has noted beta-tonia intolerance would like to try to wean this down. Switching agents to metoprolol tartrate may help reduce symptoms while we are trying to wean this down. Cont losartan 100mg, start Lasix 20mg PO qAM, clonidine 0.1mg PO qHS. Will continue nitropaste for now. Replace BB with coreg and start at Appreciate additional cardiology recommendations. DO Bertrand
[2023-03-25] MEDS ORDERED: OPTIRAY 320 500ml IV ONE (16:23)
[2023-03-25] MEDS ORDERED: cloNIDine HCL 0.1 MG TAB PO ONE (16:32)
[2023-03-25 16:43] LABS: C Reactive Protein < 0.50 mg/dl (0-0.5)
--- NOTE | 2023-03-25 16:47 | CT Scan Report ---
CT ANGIOGRAPHY OF THE CHEST DISSECTION PROTOCOL CLINICAL HISTORY: Chest pain. Evaluate for dissection. COMPARISON STUDY: Chest radiograph performed earlier today. Chest CT April 08, 2019. TECHNIQUE: Before and following the IV administration of 110 mL of Optiray, helical axial images of t he chest were obtained. Maximal intensity projections and sagittal and coronal reformats were viewed on an independent 3D workstation. IV contrast was administered without complication. Automated exp osure control was utilized for the study. A dose lowering technique was utilized adhering to the shamar Mccullough. CT DOSE: 492.87 mGy.cm FINDINGS: The caliber of the thoracic aorta is normal. There is no thoracic aortic dissection or int ramural hematoma. No pulmonary emboli are identified. Size of the heart is normal. A small pericardia l effusion is similar to CT of April 08, 2019. There is no pneumothorax or pleural effusion. There is no consolidation to suggest pneumonia. A few tiny pulmonary nodules are unchanged. There are no n ew nodules. No acute fractures within the bony thorax are noted. Visualized portions of the upper abd omen are unremarkable. IMPRESSION: 1. No thoracic aortic dissection. 2. No pulmonary emboli. 3. No consolidation to suggest pneumonia. 4. Small pericardial effusion, similar to CT of April 08, 2019. ACT 112: Negative or not required by law. Electronically signed by: Fabian Dong M.D. 03/25/2023 4:45 PM
[2023-03-25] MEDS ORDERED: POLYETHYLENE (MIRALAX) 17 GM PACK PO PRN (17:17)
[2023-03-25] MEDS ORDERED: ONDANSETRON INJ 2 MG/ML 2 ML VIAL IV PRN (17:17)
[2023-03-25] MEDS ORDERED: MAGNESIUM HYDROXIDE SUSP 30 ML UDC PO PRN (17:17)
[2023-03-25] MEDS ORDERED: ACETAMINOPHEN 325 MG TAB PO PRN (17:17)
[2023-03-25] MEDS ORDERED: ALUMINUM/MAGNESIUM SUSP 30 ML UDC PO PRN (17:17)
[2023-03-25] MEDS ORDERED: hydrALAZINE HCL 20 MG/ML VIAL IV STA (17:42)
[2023-03-25] MEDS: NITROGLYCERIN 2% OINTMENT 30GM TUBE EXT SCH ×2 (18:23→23:49)
--- NOTE | 2023-03-25 19:25 | Ultrasound Report ---
DOPPLER ULTRASOUND OF THE RENAL ARTERIES CLINICAL HISTORY: Malignant hypertension. COMPARISON STUDY: CTA of the chest performed earlier today. Renal ultrasound January 28, 2022. TECHNIQUE: Grayscale, color and duplex Doppler sonography of the abdominal aorta and renal arteries w as performed. FINDINGS: The peak systolic velocity within the abdominal aorta was 73 cm/s. The bilateral renal evgeny jennie and veins were patent. Peak systolic velocity within the right renal artery was 54 cm/s. Peak sy stolic velocity within the left renal artery was 53 cm/s. Segmental waveforms within both kidneys wer e within normal limits. IMPRESSION: No sonographic evidence of renal artery stenosis. ACT 112: Negative or not required by law. Electronically signed by: Fabian Dong M.D. 03/25/2023 7:23 PM
[2023-03-25] MEDS: GABAPENTIN 250 MG/5 ML 470 ML BTL PO SCH (20:28)
[2023-03-25] MEDS ORDERED: METOPROLOL SUCC 50MG EXT REL TAB PO SCH (21:00)
[2023-03-25 21:10] LABS: Amphetamines+Metham, Urine Neg (Neg); Barbiturates, Urine Neg (Neg); Benzodiazepine, Urine Neg (Neg); Cocaine, Urine Neg (Neg); MDMA (Ecstacy), Urine Neg (Neg); Marijuana, Urine Neg (Neg); Methadone, Urine Neg (Neg); Opiate, Urine Neg (Neg); Phencyclidine, Urine Neg (Neg)
[2023-03-25] MEDS: POTASSIUM CHLORIDE PWD 20 MEQ PACK PO SCH (21:14)
[2023-03-25] MEDS: FAMOTIDINE 20 MG TAB PO SCH (21:14)
[2023-03-25] MEDS: LORazepam 1 MG TAB PO SCH (21:14)
[2023-03-25] MEDS: METOPROLOL TARTRATE 25 MG TAB PO SCH (21:15)
[2023-03-26] MEDS: ACETAMINOPHEN SUSP 325 MG/10.15 ML UDC PO PRN ×3 (01:58→15:49)
[2023-03-26] MEDS: NITROGLYCERIN 2% OINTMENT 30GM TUBE EXT SCH (05:47)
[2023-03-26 06:33] LABS: Basophils # (auto) 0.03 K/uL (0.00-0.20); Basophils % (auto) 0.5 %; Eosinophils # (auto) 0.06 K/uL (0.00-0.50); Eosinophils % (auto) 1.1 %; Hematocrit (blood only) 37.1 % (37.0-47.0); Hemoglobin 12.9 g/dl (12.0-16.0); Immature Granulocytes # (auto) 0.01 K/uL (0.01-0.20); Immature Granulocytes % (auto) 0.2 %; Lymphocytes # (auto) 1.15 K/uL (1.20-3.40); Lymphocytes % (auto) 20.9 %; Mean Corpuscular Hemoglobin 29.5 pg (25.0-34.0); Mean Corpuscular Hgb Conc 34.8 g/dL (32.0-36.0); Mean Corpuscular Volume 84.7 fL (80.0-100.0); Mean Platelet Volume 9.3 fL (9.4-12.4); Monocytes % (auto) 9.1 %; Neutrophils # (auto) 3.75 K/uL (1.40-6.50); Neutrophils % (auto) 68.2 %; Platelet Count 175 K/uL (130-400); RDW Coefficient of Variation 13.5 % (11.5-14.5); Red Blood Count 4.38 M/uL (4.20-5.40)
[2023-03-26 06:50] LABS: Albumin Globulin Ratio 1.8 (0.9-2); BUN Creatinine Ratio 18.8 (10-20); Bilirubin,Total 1.8 mg/dl (0.2-1.0); Calcium 9.3 mg/dl (8.6-10.3); Creatinine Clr Calc Pharmacy 73.5 ml/min; Est GFR (African American) 109.3 ml/min; Est GFR (Non-African American) 94.3 ml/min; Globulin 2.2 gm/dl (2.5-4.0); Magnesium 2.1 mg/dl (1.7-2.4); Potassium 3.6 mmol/L (3.5-5.1); Total Protein 6.2 gm/dl (6.0-8.3)
[2023-03-26 07:02] LABS: Thyroid Stimulating Hormone 1.527 uIu/ml (0.300-4.500)
--- NOTE | 2023-03-26 08:15 | Electrocardiogram Report ---
Test Reason : Blood Pressure : / mmHG Vent. Rate : 064 BPM Atrial Rate : 064 BPM P-R Int : 170 ms QRS Dur : 086 ms QT Int : 478 ms P-R-T Axes : 081 068 084 degrees QTc Int : 493 ms Normal sinus rhythm Left atrial enlargement Low voltage QRS Prolonged QT Abnormal ECG When compared with ECG of 21-MAR-2023 12:05, QT has lengthened Confirmed by Haim Díaz ([id number]) on 03/26/2023 8:15:39 AM Referred By: Juan Luis Gordon Confirmed By:Haim Díaz
--- NOTE | 2023-03-26 09:27 | CT Scan Report ---
CT head/brain wo con CLINICAL HISTORY: 62 years-old Female with Headache. Acute headache TECHNIQUE: Multiple axial CT images of the head were obtained without contrast. A dose lowering tech nique was utilized adhering to the principles of ALARA. CT DOSE: 547.75 mGy.cm COMPARISON: 04/08/2019 FINDINGS: No acute intracranial hemorrhage, midline shift, intracranial mass, hydrocephalus, territorial ischem ia or abnormal extra-axial collection. Mild white matter hypodensities suggestive of chronic microvas cular ischemic disease. Unchanged small focus of left frontal lobe periventricular encephalomalacia o n image 17 series 2 suggestive of a chronic infarct. The calvarium is intact. 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 1.7 cm lucent focus wit hin the left calvarium on image 18 series 3 previously measured 1.3 cm. This is favored to be benign. The paranasal sinuses, mastoid air cells, and middle ear cavities are clear. IMPRESSION: No acute intracranial abnormality. ACT 112: Negative or not required by law. The above report was generated using voice recognition software. It may contain grammatical, syntax o r spelling errors. Electronically signed by: Tang Martinez M.D. 03/26/2023 9:25 AM
[2023-03-26] MEDS: MULTI VIT W/MINERALS LIQUID 15 ML UDP PO SCH (09:39)
[2023-03-26] MEDS: LORATADINE 1 MG/1 ML PO SCH (09:39)
[2023-03-26] MEDS: LANSOPRAZOLE 30 MG SOLTAB PO SCH (09:40)
[2023-03-26] MEDS: METOPROLOL TARTRATE 25 MG TAB PO SCH (09:41)
[2023-03-26] MEDS: POTASSIUM CHLORIDE PWD 20 MEQ PACK PO SCH (09:41)
[2023-03-26] MEDS: LORazepam 1 MG TAB PO SCH ×2 (09:41→20:22)
[2023-03-26] MEDS: LOSARTAN POTASSIUM 50 MG TAB PO SCH (09:42)
[2023-03-26] MEDS: FUROSEMIDE 20 MG TAB PO SCH (09:42)
[2023-03-26] MEDS: ENOXAPARIN INJ 40 MG/0.4 ML SYR SQ SCH (09:44)
--- NOTE | 2023-03-26 10:07 | Cardiology Consultation ---
Date of Consultation March 26, 2023 Assessment & Plan (1) Hypertensive urgency: (2) Uncontrolled hypertension: (3) LVH (left ventricular hypertrophy) due to hypertensive disease: (4) Chest pain: Supervising Physician Co-Signing Physician Notes Attending Staff: Pt seen and examined with [facility] staff Concur with observations and plans 62 yo woman presenting with uncontrolled HTN * Presenting BP 220/100 * + Chest Pain * + ALMONTE * No AMBREEN * Chronically on Losartan 100 mg po per day + Toprol 50 mg po per day * No hx of DE * No hx of PVD * No hx of BECKY * No hx of Thyroid Disease * No hx of SEVEN * No hx of adrenal tumors/pathology * No Aortic Coarctation Dx: Hypertensive Emergency * Started on Labetalol * Started Clonidine * Lasix 20 PO x 1 * Nitropaste Plans: * Continue Losartan 100 mg po per day * STOP LOPRESSOR * START Coreg 6.25 mg po BID * Start Aldactone 25 mg po per day * Revisit Chlorthalindone in lue of Lasix (significant diarrhea after taking chlorthalindone- will keep on lasix) * K+ has been low despite being on Losartan - may be a clue to underlying adren al challenge * STOP Clonidine * STOp Nitropaste * May need Calcium Channel Farhan - Procardia XL * TSH - WNL * Renin/Kenney - pending * Catecholamine - pending * TOX negative * Troponin - WNL * LVEF 55-60%, moderate LVH, no major valve pathology, small anterior pericardial effusion. * Ischemic work up as an outpt * Not on Statin - check LDL * Following with Omar Buckner History of Present Illness Reason for Consultation: Hypertensive urgency Requesting Physician: Ketty Attending Physician: Nae History of Present Illness 62-year-old female admitted to [facility] on March 25, 2023 with uncontrolled hypertension, hypertensive urgency, complaints of chest pain and headaches x2 months duration. Blood pressure on presentation 220/100 Prior to arrival antihypertensive regimen: Losartan 100 mg/day. Metoprolol 50 mg/day Intolerant to amlodipine and thiazide diuretics including HCTZ and chlorthalidone Received 2 doses of IV labetalol without improvement. Currently prescribed the following: Losartan 100 mg/day. Clonidine 0.1 mg QHS. Furosmeide 20 mg/day. Metoprolol tartrate 12.5 BID. 1/2" nitro paste Q6 hours Last Five documented BP's: 127/72 -> 147/80 -> 117/67 -> 122/69 -> 129/76 - EKG with normal sinus rhythm at 64 bpm with left atrial enlargement, low voltage QRS, prolonged QTc of 493 ms. - Troponin < 2.3 pg/mL - Telemetry: Sinus in the 60s and 70s throughout - TTE: Moderate concentric LVH. EF 55-60%. Normal RV function. Normal LA & RA size. No significant valvular pathology. Incidental small anterior pericardial effusion without tamponade. G1DD. No interatrial shunt. - Head CTA: No acute intracranial abnormality - Chest x-ray without acute cardiopulmonary findings - Chest CTA without PE, aortic catastrophe, coarctation of the aorta, or consol idation to suggest pneumonia. Chronic small pericardial effusion noted. - Renal duplex showed no sonographic evidence of renal artery stenosis - TSH normal at 1.527 - Renin aldosterone, catecholamines, metanephrines pending. Problem List Hypertension History of TIA Migraine headaches, followed by Dr. Villalta Chronic dysphagia History of esophageal dilatation Fibromyalgia GERD Chronic ulnar nerve palsy Osteoporosis Family History: Mother due to complications of lymphoma at the age of 70. Father with CAD status post CABG. Maternal aunt with a history of obesity and iktrpipsv-yw-zxiywiz high blood pressure. Social History: Never smoker. No smokeless tobacco. No alcohol. No illegal drug use . One daughter. 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 Allergies Allergy/AdvReac Type Severity Reaction Status Date / Time chocolate flavor Allergy Severe HIVES Verified 03/25/23 13:07 diphenhydramine Allergy Intermediate CHEST Verified 03/25/23 13:07 PAIN, TACHYCARDIA oxycodone Allergy Intermediate hives Verified 03/25/23 13:07 tetracycline Allergy Mild HIVES Verified 03/25/23 13:07 clopidogrel [From Plavix] AdvReac Severe facial Verified 03/25/23 13:07 rash & chest pain hydrocodone [From [facility]] AdvReac Intermediate ITCHING, Verified 03/25/23 13:07 WELTS Wjjpanl-VXV-EoH Reductase AdvReac Intermediate myalgia in Verified 03/25/23 13:07 Inhibitor legs [Fsenunl-Tda-Ksy Reductase Inhibitor] codeine AdvReac Mild HEADACHES Verified 03/25/23 13:07 latex AdvReac Mild redness/itching/localized Verified 03/25/23 13:07 swelling amlodipine [From [facility]] AdvReac leg Verified 03/25/23 13:11 swelling chlorthalidone AdvReac vomiting, Verified 03/25/23 13:11 diarrhea hydrochlorothiazide AdvReac vomiting, Verified 03/25/23 13:11 diarrhea Home Medications Medication Instructions Recorded Confirmed Type lorazepam 2 mg tablet 2 mg PO HS anxiety 06/05/18 03/25/23 History multivitamin 1 tab PO QAM 10/20/20 03/25/23 History ondansetron HCl 4 mg tablet See Rx Instructions PO TID PRN 03/20/21 03/25/23 Rx Nausea #30 tabs losartan 100 mg tablet 100 mg PO QAM 08/27/22 03/25/23 History clotrimazole 1 % topical cream 1 applic topical BID PRN Other 02/11/23 03/25/23 History famotidine 20 mg tablet 20 mg PO PM 02/11/23 03/25/23 History gabapentin 250 mg/5 mL oral 500 mg PO .QAFTERNOON 02/11/23 03/25/23 History solution loratadine 5 mg/5 mL oral solution 5 mg PO DAILY Allergy Symptoms 02/11/23 03/25/23 History (Claritin) pantoprazole 40 mg tablet,delayed 40 mg PO QAM 02/11/23 03/25/23 History release silver sulfadiazine 1 % topical 1 applic topical DAILY PRN Other 02/11/23 03/25/23 History cream metoprolol succinate 25 mg 50 mg PO PM 02/25/23 03/25/23 History tablet,extended release 24 hr rimegepant 75 mg disintegrating 75 mg PO ONCE PRN Migraine Headache 02/25/23 03/25/23 History tablet (Nurtec ODT) acetaminophen 160 mg/5 mL oral 0 mg PO QID PRN Pain 03/25/23 03/25/23 History elixir lorazepam 1 mg tablet 1 mg PO QAM 03/25/23 03/25/23 History Patient History Medical History Difficulty in swallowing Postoperative nausea History of esophageal dilatation Fibromyalgia GERD (gastroesophageal reflux disease) no meds at present; reason for EGD 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 PREVIOUSLY TOLD AT [facility] AND [facility]. History of open reduction and internal fixation (ORIF) procedure CLAVICLE WITH HARDWARE REMOVAL History of tonsillectomy History of colonoscopy History of surgery Excision of schwannoma from brachial plexus x2 History of appendectomy History of total hysterectomy BOLA WITH BSO History of decompression of ulnar nerve x 3 History of cholecystectomy Family History Father Coronary heart disease CHF (congestive heart failure) Mother Lymphoma Postoperative nausea Sister Postoperative nausea Other Cancer Heart disease Hypertension No family history of adverse response to anesthesia No family history of bleeding disorder Social History Smoking Status: Never smoker Second Hand Exposure: No; Do You Dip or Chew Tobacco: No; Hx Alcohol Use: No Hx Substance Use: No Preferred Language: American Communication Ability: Effective Visual Impairment: No Limitations 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 Physical Exam Physical Exam: thin woman in NAD No thyromegaly No elevation in JVP S1S2S4 No coarctation murmur CTA B No abdominal or RP bruits No abdominal masses appreciated No c/c/e - warm and perfusing Results & Data Vital Signs (Past 12 Hours) Vital Signs Temp Pulse Pulse Resp BP Pulse Ox O2 Del Method 03/26/23 05:48 129/76 03/26/23 02:52 36.5 C 71 18 122/69 97 Room Air 03/25/23 23:00 75 03/25/23 23:00 36.7 C 72 18 117/67 95 Room Air Laboratory Results Cardiac Enzymes 03/25/23 03/26/23 Range/Units 12:14 05:47 AST 20 14 (13-39) U/L Troponin I High Sens < 2.3 (0-14) pg/ml CBC 03/25/23 03/26/23 Range/Units 12:14 05:47 WBC 5.33 5.50 (4.8-10.8) K/ul RBC 4.67 4.38 (4.20-5.40) M/uL Hgb 13.7 12.9 (12.0-16.0) g/dl Hct 39.8 37.1 (37.0-47.0) % Plt Count 189 175 (130-400) K/uL Neut # (Auto) 3.54 3.75 (1.40-6.50) K/uL Lymph # (Auto) 1.24 1.15 L (1.20-3.40) K/uL [place] # (Auto) 0.47 0.50 (0.11-0.59) K/uL Eos # (Auto) 0.04 0.06 (0.00-0.50) K/uL Baso # (Auto) 0.03 0.03 (0.00-0.20) K/uL Comprehensive Metabolic Panel 03/25/23 03/26/23 Range/Units 12:14 05:47 Sodium 141 140 (136-145) mmol/L Potassium 3.5 3.6 (3.5-5.1) mmol/L Chloride 103 104 (98-107) mmol/L Carbon Dioxide 33 H 30 (21-32) mmol/L BUN 11 12 (6-23) mg/dl Creatinine 0.66 0.64 (0.6-1.2) mg/dl Glucose 94 102 H (70-99(Fasting)) mg/dl Calcium 9.8 9.3 (8.6-10.3) mg/dl AST 20 14 (13-39) U/L ALT 11 10 (7-52) U/L Alkaline Phosphatase 51 46 (34-104) U/L Total Protein 7.1 6.2 (6.0-8.3) gm/dl Albumin 4.5 4.0 (3.4-5.0) gm/dl Intake and Output 03/25/23 03/26/23 03/26/23 22:59 06:59 14:59 Intake Total 240 / 240 Balance 240 / 240 Intake: Oral 240 / 240 Other: # Unmeasured Voids 1 2 Weight 51.5 kg 52.4 kg Weight Measurement Method Standing Scale Medications Administered Current Inpatient Medications Acetaminophen (Acetaminophen Susp 325 Mg/10.15 Ml Udc) 650 mg PO Q6H PRN PRN Reason: pain/fever Stop: 04/24/23 17:16 Last Admin: 03/26/23 09:44 Dose: 650 mg Al Hydrox/Mg Hydrox/Simethicone (Aluminum/Magnesium Susp 30 Ml Udc) 15 ml PO Q4H PRN PRN Reason: Dyspepsia Stop: 04/24/23 17:16 Clonidine HCl (Clonidine Hcl 0.1 Mg Tab) 0.1 mg PO HS ELLEN Stop: 04/25/23 20:59 Enoxaparin Sodium (Enoxaparin Inj 40 Mg/0.4 Ml Syr) 40 mg SQ Q24H ELLEN Stop: 04/25/23 07:59 Last Admin: 03/26/23 09:44 Dose: 40 mg Famotidine (Famotidine 20 Mg Tab) 20 mg PO PM ELLEN Stop: 04/24/23 20:59 Last Admin: 03/25/23 21:14 Dose: 20 mg Furosemide (Furosemide 20 Mg Tab) 20 mg PO QAM ELLEN Stop: 04/25/23 08:59 Last Admin: 03/26/23 09:42 Dose: 20 mg Gabapentin (Gabapentin 250 Mg/5 Ml 470 Ml Btl) 500 mg PO DAILY@[facility] Stop: 04/24/23 17:59 Last Admin: 03/25/23 20:28 Dose: Not Given Lansoprazole (Lansoprazole 30 Mg Soltab) 30 mg PO QAM ELLEN Stop: 04/25/23 08:59 Last Admin: 03/26/23 09:40 Dose: 30 mg Loratadine (Loratadine 1 Mg/1 Ml) 5 mg PO DAILY ELLEN Stop: 04/25/23 08:59 Last Admin: 03/26/23 09:39 Dose: 5 mg Lorazepam (Lorazepam 1 Mg Tab) 1 mg PO QAM ELLEN Stop: 04/25/23 08:59 Last Admin: 03/26/23 09:41 Dose: 1 mg Lorazepam (Lorazepam 1 Mg Tab) 2 mg PO HS ELLEN Stop: 04/24/23 20:59 Last Admin: 03/25/23 21:14 Dose: 2 mg Losartan Potassium (Losartan Potassium 50 Mg Tab) 100 mg PO QAM ELLEN Stop: 04/25/23 08:59 Last Admin: 03/26/23 09:42 Dose: 100 mg Magnesium Hydroxide (Magnesium Hydroxide Susp 30 Ml Udc) 30 ml PO Q12H PRN PRN Reason: Constipation Stop: 04/24/23 17:16 Metoprolol Tartrate (Metoprolol Tartrate 25 Mg Tab) 12.5 mg PO BID ELLEN Stop: 04/24/23 20:59 Last Admin: 03/26/23 09:41 Dose: 12.5 mg Multivitamins/Minerals (Multi Vit W/Minerals Liquid 15 Ml Udp) 15 ml PO QAM ELLEN Stop: 04/25/23 08:59 Last Admin: 03/26/23 09:39 Dose: 15 ml Nitroglycerin (Nitroglycerin 2% Ointment 30gm Tube) 0.5 inch EXT Q6H ELLEN Stop: 04/24/23 17:44 Last Admin: 03/26/23 05:47 Dose: 0.5 inch Ondansetron HCl (Ondansetron Inj 2 Mg/Ml 2 Ml Vial) 4 mg IV Q6H PRN PRN Reason: Nausea Stop: 04/24/23 17:16 Last Admin: 03/25/23 20:20 Dose: 4 mg Pneumococcal 20-Valent Conj Vacc (Pneumococcal Vaccine (Pcv20) 20-Gloria Conj-Dip Crm/Pf 0.5 Ml Syr) 0.5 ml IM .ONCE ONE Stop: 03/28/23 18:11 Polyethylene Glycol (Polyethylene (Miralax) 17 Gm Pack) 17 gm PO DAILY PRN PRN Reason: Constipation Stop: 04/24/23 17:16 Potassium Chloride (Potassium Chloride Pwd 20 Meq Pack) 20 meq PO QAM ELLEN Stop: 04/24/23 17:16 Last Admin: 03/26/23 09:41 Dose: 20 meq (3) LVH (left ventricular hypertrophy) due to hypertensive disease Heart failure presence: without heart failure Qualified Code(s): I11.9 - Hypertensive heart disease without heart failure (4) Chest pain Chest pain type: unspecified Qualified Code(s): R07.9 - Chest pain, unspecified
[2023-03-26] MEDS: SPIRONOLACTONE 25 MG TAB PO SCH (12:36)
[2023-03-26] MEDS: GABAPENTIN 250 MG/5 ML 470 ML BTL PO SCH (14:48)
[2023-03-26] MEDS: carvediloL 6.25 MG TAB PO SCH (16:01)
--- NOTE | 2023-03-26 17:20 | Hospitalist Progress Note ---
Date of Service March 26, 2023 Assessment & Plan (1) Hypertensive urgency: Plan Patient is a 62-year-old female who has a significant past medical history of hypertension, migraine, chronic ulnar nerve palsy and currently disabled for such who presented to ED at the referral of cardiology due to resistant HTN. HTN Urgency Chest Pressure likely due to above Uncontrolled hypertension --Chest CTA: No thoracic aortic dissection. No pulmonary emboli. No consolid ation to suggest pneumonia. Small pericardial effusion, similar to CT of April 08, 2019. --Head CT:No acute intracranial abnormality. --ECHO: Compared to prior study, no significant change. Moderate concentric LVH. EF 55 to 60%. Incidental small anterior pericardial effusion, grade 1 diastolic dysfunction. --Renal Artery Duplex: No sonographic evidence of renal artery stenosis. --Normal TSH --- Blood work for secondary hypertension pending Appreciate cardiology input Continue losartan Started on Coreg, Aldactone Consider adding Procardia XL Check lipid panel Headache Likely due to above H/O Migraines Follows Dr. Villalta --Head CT: No acute intracranial abnormality. Improving Chronic ulnar nerve palsy s/p multiple decompressions follows Dr. Suresh at [facility] ortho wears Limb restricting bracelet b/c of this; however spoke with staff at [facility] who states this is not indicated and she can have IV access Chronic Dysphagia follows GI Needs pills crushed or with yogurt Continue PPI, pepcid DVT Px: Lovenox SQ Code Status Full Code Admission and Anticipated Discharge Date Admission Date: March 25, 2023 Subjective Patient is seen and examined at bedside Chest pain much improved Less headache today Retrobulbar pressure sensation improved as well Discussed with cardiology today No other complaints Review of Systems Review of Systems: All systems reviewed & are unremarkable except as noted in Subjective Physical Exam Physical Exam: Physical Exam: Vitals signs as noted above General Appearance:Thin, no apparent distress Head: normocephalic, Atraumatic Eyes: normal inspection, EOMI Neck: supple, Trachea midline Respiratory/Chest: Normal breath sounds, CTA, No accessory muscle use Cardiovascular: S1, S2, No murmur Abdomen/GI:Soft, Non tender, Bowel sounds present Extremities/Musculoskeletal:normal inspection, no edema Neurologic/Psych:AAOX3, grossly no focal neurological deficits Skin: normal color, warm Results & Data Results & Data Vital Signs (Past 12 Hours) Vital Signs Temp Pulse Resp BP Pulse Ox O2 Del Method 11/15/23 15:53 36.6 C 70 17 169/85 H 96 Room Air 03/26/23 12:07 36.7 C 63 18 140/71 95 Room Air 03/26/23 05:48 129/76 Laboratory Results Short CBC 03/26/23 Range/Units 05:47 WBC 5.50 (4.8-10.8) K/ul Hgb 12.9 (12.0-16.0) g/dl Hct 37.1 (37.0-47.0) % Plt Count 175 (130-400) K/uL BMP 03/26/23 05:47 Sodium 140 Potassium 3.6 Chloride 104 Carbon Dioxide 30 BUN 12 Creatinine 0.64 Glucose 102 H Calcium 9.3 Liver Function 03/26/23 Range/Units 05:47 Total Bilirubin 1.8 H (0.2-1.0) mg/dl AST 14 (13-39) U/L ALT 10 (7-52) U/L Alkaline Phosphatase 46 (34-104) U/L Albumin 4.0 (3.4-5.0) gm/dl
[2023-03-26] MEDS: FAMOTIDINE 20 MG TAB PO SCH (20:22)
[2023-03-26] MEDS ORDERED: cloNIDine HCL 0.1 MG TAB PO SCH (21:00)
[2023-03-27 07:45] LABS: Hematocrit (blood only) 37.8 % (37.0-47.0); Mean Corpuscular Hemoglobin 29.2 pg (25.0-34.0); Mean Corpuscular Hgb Conc 34.4 g/dL (32.0-36.0); Mean Corpuscular Volume 84.9 fL (80.0-100.0); Mean Platelet Volume 9.6 fL (9.4-12.4); Platelet Count 155 K/uL (130-400); RDW Coefficient of Variation 13.6 % (11.5-14.5); RDW Standard Deviation 41.7 fL (36.4-46.3); Red Blood Count 4.45 M/uL (4.20-5.40); White Blood Count 5.31 K/ul (4.8-10.8)
[2023-03-27] MEDS: carvediloL 6.25 MG TAB PO SCH (07:58)
[2023-03-27] MEDS: ENOXAPARIN INJ 40 MG/0.4 ML SYR SQ SCH (07:58)
[2023-03-27] MEDS: LANSOPRAZOLE 30 MG SOLTAB PO SCH (08:01)
[2023-03-27 08:03] LABS: Albumin Globulin Ratio 1.6 (0.9-2); Albumin Level 4.1 gm/dl (3.4-5.0); BUN Creatinine Ratio 18.8 (10-20); Bilirubin,Total 1.9 mg/dl (0.2-1.0); Calcium 9.3 mg/dl (8.6-10.3); Creatinine Clr Calc Pharmacy 76.4 ml/min; Est GFR (African American) 109.3 ml/min; Est GFR (Non-African American) 94.3 ml/min; Globulin 2.5 gm/dl (2.5-4.0); Magnesium 2.1 mg/dl (1.7-2.4); Potassium 3.8 mmol/L (3.5-5.1); Total Protein 6.6 gm/dl (6.0-8.3)
[2023-03-27] MEDS: FUROSEMIDE 20 MG TAB PO SCH (08:03)
[2023-03-27] MEDS: SPIRONOLACTONE 25 MG TAB PO SCH (08:03)
[2023-03-27] MEDS: POTASSIUM CHLORIDE PWD 20 MEQ PACK PO SCH (08:04)
[2023-03-27] MEDS: LOSARTAN POTASSIUM 50 MG TAB PO SCH (08:04)
[2023-03-27] MEDS: LORATADINE 1 MG/1 ML PO SCH (08:04)
[2023-03-27] MEDS: MULTI VIT W/MINERALS LIQUID 15 ML UDP PO SCH (08:04)
[2023-03-27] MEDS: LORazepam 1 MG TAB PO SCH ×2 (08:06→20:02)
--- NOTE | 2023-03-27 08:39 | Electrocardiogram Report ---
Test Reason : Blood Pressure : / mmHG Vent. Rate : 066 BPM Atrial Rate : 066 BPM P-R Int : 168 ms QRS Dur : 086 ms QT Int : 432 ms P-R-T Axes : 074 051 073 degrees QTc Int : 452 ms Normal sinus rhythm Normal ECG When compared with ECG of 26-MAR-2023 05:40, No significant change was found Confirmed by Haim Díaz ([id number]) on 03/27/2023 8:39:05 AM Referred By: Juan Luis Gordon Confirmed By:Haim Díaz
--- NOTE | 2023-03-27 10:47 | Cardiology Progress Note ---
Date of Service March 27, 2023 Assessment & Plan Admission and Anticipated Discharge Date Admission Date: March 25, 2023 Supervising Physician Co-Signing Physician Notes Attending Staff: Pt seen and examined with [facility] staff Concur with observations and plans 62 yo woman presenting with uncontrolled HTN * Presenting BP 220/100 * + Chest Pain * + ALMONTE * No AMBREEN * Chronically on Losartan 100 mg po per day + Toprol 50 mg po per day * No hx of MO * No hx of PVD * No hx of BECKY * No hx of Thyroid Disease * No hx of SEVEN * No hx of adrenal tumors/pathology * No Aortic Coarctation Dx: Hypertensive Emergency * Started on Labetalol * Started Clonidine * Lasix 20 PO x 1 * Nitropaste Plans: * Continue Losartan 100 mg po per day * Continue Aldactone 25 mg po per day * LOPRESSOR (OFF) * Increase Coreg to 12.5 mg po BID * Chlorthalindone - significant diarrhea after taking chlorthalindone- will keep on lasix * Continue Lasix 20 mg po per day * K+ has been low despite being on Losartan - may be a clue to underlying adrenal challenge * Plans for outpt Endocrine Evaluation for Hyperadrenal State * Clonidine (OFF) * Nitropaste (OFF) * May need Calcium Channel Farhan - Procardia XL * TSH - WNL * Renin/Kenney - pending * Catecholamine - pending * TOX negative * Troponin - WNL * LVEF 55-60%, moderate LVH, no major valve pathology, small anterior pericardial effusion. * Ischemic work up - patient complained of chest pressure * Plans for Pharmacologic Stress Test on 03/28/2023 * NPO Past MN - no caffeinated products * Check EKG * Not on Statin - LDL - 112 Omar Buckner Subjective Events overnight: * None reported * + chest pressure complaint Subjective: * Occasional ALMONTE * Chest pain resolved Review of Systems Review of Systems: All systems reviewed & are unremarkable except as noted in HPI & below Physical Exam Physical Exam: thin woman in NAD No thyromegaly No elevation in JVP S1S2S4 No coarctation murmur CTA B No abdominal or RP bruits No abdominal masses appreciated No c/c/e - warm and perfusing Results & Data Vital Signs (Past 12 Hours) Vital Signs Temp Pulse Pulse Resp BP Pulse Ox O2 Del Method 03/27/23 09:08 77 03/27/23 07:46 36.8 C 66 17 153/88 H 96 Room Air 03/27/23 02:36 36.7 C 70 18 133/77 96 Room Air 03/26/23 23:15 36.4 C L 70 140/80 97 Room Air 03/26/23 23:00 67 Laboratory Results Cardiac Enzymes 03/27/23 Range/Units 07:01 AST 13 (13-39) U/L Lipids 03/27/23 Range/Units 07:01 Triglycerides 77 (0-150) mg/dl Cholesterol 191 (0-200) mg/dl HDL Cholesterol 64 mg/dl Cholesterol/HDL Ratio 3.0 (0-5) CBC 03/27/23 Range/Units 07:01 WBC 5.31 (4.8-10.8) K/ul RBC 4.45 (4.20-5.40) M/uL Hgb 13.0 (12.0-16.0) g/dl Hct 37.8 (37.0-47.0) % Plt Count 155 (130-400) K/uL Comprehensive Metabolic Panel 03/27/23 Range/Units 07:01 Sodium 140 (136-145) mmol/L Potassium 3.8 (3.5-5.1) mmol/L Chloride 105 (98-107) mmol/L Carbon Dioxide 31 (21-32) mmol/L BUN 12 (6-23) mg/dl Creatinine 0.64 (0.6-1.2) mg/dl Glucose 103 H (70-99(Fasting)) mg/dl Calcium 9.3 (8.6-10.3) mg/dl AST 13 (13-39) U/L ALT 9 (7-52) U/L Alkaline Phosphatase 50 (34-104) U/L Total Protein 6.6 (6.0-8.3) gm/dl Albumin 4.1 (3.4-5.0) gm/dl Intake and Output 03/26/23 03/27/23 03/27/23 22:59 06:59 14:59 Intake Total 1550 / 2555 650 / 2555 Output Total Balance 1549 / 2103 649 / 2103 Intake: Oral 1550 / 2555 650 / 2555 Output: Urine # Bowel Movements Other: # Unmeasured Voids 2 Weight 54.5 kg Weight Measurement Method Built in [facility] Medications Administered Current Inpatient Medications Acetaminophen (Acetaminophen Susp 325 Mg/10.15 Ml Udc) 650 mg PO Q6H PRN PRN Reason: pain/fever Stop: 04/24/23 17:16 Last Admin: 03/26/23 15:49 Dose: 650 mg Al Hydrox/Mg Hydrox/Simethicone (Aluminum/Magnesium Susp 30 Ml Udc) 15 ml PO Q4H PRN PRN Reason: Dyspepsia Stop: 04/24/23 17:16 Carvedilol (Carvedilol 6.25 Mg Tab) 6.25 mg PO BIDM ELLEN Stop: 04/25/23 16:59 Last Admin: 03/27/23 07:58 Dose: 6.25 mg Enoxaparin Sodium (Enoxaparin Inj 40 Mg/0.4 Ml Syr) 40 mg SQ Q24H ELLEN Stop: 04/25/23 07:59 Last Admin: 03/27/23 07:58 Dose: 40 mg Famotidine (Famotidine 20 Mg Tab) 20 mg PO PM ELLEN Stop: 04/24/23 20:59 Last Admin: 03/26/23 20:22 Dose: 20 mg Furosemide (Furosemide 20 Mg Tab) 20 mg PO QAM ELLEN Stop: 04/25/23 08:59 Last Admin: 03/27/23 08:03 Dose: 20 mg Gabapentin (Gabapentin 250 Mg/5 Ml 470 Ml Btl) 500 mg PO DAILY@1400 [facility] Stop: 04/24/23 17:59 Last Admin: 03/26/23 14:48 Dose: 500 mg Lansoprazole (Lansoprazole 30 Mg Soltab) 30 mg PO QAM ELLEN Stop: 04/25/23 08:59 Last Admin: 03/27/23 08:01 Dose: 30 mg Loratadine (Loratadine 1 Mg/1 Ml) 5 mg PO DAILY ELLEN Stop: 04/25/23 08:59 Last Admin: 03/27/23 08:04 Dose: 5 mg Lorazepam (Lorazepam 1 Mg Tab) 1 mg PO QAM ELLEN Stop: 04/25/23 08:59 Last Admin: 03/27/23 08:06 Dose: 1 mg Lorazepam (Lorazepam 1 Mg Tab) 2 mg PO HS ELLEN Stop: 04/24/23 20:59 Last Admin: 03/26/23 20:22 Dose: 2 mg Losartan Potassium (Losartan Potassium 50 Mg Tab) 100 mg PO QAM ELLEN Stop: 04/25/23 08:59 Last Admin: 03/27/23 08:04 Dose: 100 mg Magnesium Hydroxide (Magnesium Hydroxide Susp 30 Ml Udc) 30 ml PO Q12H PRN PRN Reason: Constipation Stop: 04/24/23 17:16 Multivitamins/Minerals (Multi Vit W/Minerals Liquid 15 Ml Udp) 15 ml PO QAM ELLEN Stop: 04/25/23 08:59 Last Admin: 03/27/23 08:04 Dose: 15 ml Ondansetron HCl (Ondansetron Inj 2 Mg/Ml 2 Ml Vial) 4 mg IV Q6H PRN PRN Reason: Nausea Stop: 04/24/23 17:16 Last Admin: 03/25/23 20:20 Dose: 4 mg Pneumococcal 20-Valent Conj Vacc (Pneumococcal Vaccine (Pcv20) 20-Gloria Conj-Dip Crm/Pf 0.5 Ml Syr) 0.5 ml IM .ONCE ONE Stop: 03/28/23 18:11 Polyethylene Glycol (Polyethylene (Miralax) 17 Gm Pack) 17 gm PO DAILY PRN PRN Reason: Constipation Stop: 04/24/23 17:16 Potassium Chloride (Potassium Chloride Pwd 20 Meq Pack) 20 meq PO QAM [facility] Stop: 04/24/23 17:16 Last Admin: 03/27/23 08:04 Dose: 20 meq Spironolactone (Spironolactone 25 Mg Tab) 25 mg PO QAM ELLEN Stop: 04/25/23 10:59 Last Admin: 03/27/23 08:03 Dose: 25 mg
[2023-03-27] MEDS ORDERED: SODIUM CHLORIDE 0.65% NA SOLN 45 ML (OCEAN) PRN (10:48)
--- OUTSIDE RECORDS SUMMARY | 2023-03-27 13:34 | External Medical Summary | Continuity of Care Document ---
Author Name Unknown Organization [facility] [address] [id number] Care Team Providers Care Account Officer Name Role Phone Edyta Gilma L Primary Care Physician [phone] Encounter [facility] [id number] Date(s): 03/20/23 - 03/20/23 [facility] [address] [phone] Encounter Diagnosis Changing skin lesion(Discharge Diagnosis) - 03/20/23 Discharge Disposition: Home or Self Care Attending Physician: MD Cook Sara B Referring Physician: MD Cook Sara B Allergies, Adverse Reactions, Alerts Substance Reaction Severity Status codeine Headache HALLUCINATIONS Active doxycycline hives Active Plavix fast heart rate rash Active Benadryl heart races Active Foley hives Active Percocet 7.5/325 Hallucinations Active chocolate Swelling Hives Active statins leg pain Active Medications Ativan 1 mg oral tablet Start: 09/06/10 16:05:00, 2 tab, PO, qhs, tab Start Date: 09/06/10 Status: Ordered chlorthalidone 25 mg oral tablet Start: 03/20/23 11:28:00 EST Start Date: 03/20/23 Status: Ordered gabapentin 250 mg/5 mL oral solution Start: 01/20/23 9:42:00 EDT, See Instructions, Disp# 500 mL, Refills: 5, 5mL daily x3 days, then 10mL daily x 3 days, then 10mL BID x 3 days, then 10mL TID. call if having increased esophagitis, Pharmacy: [id number] Start Date: 01/20/23 Status: Ordered losartan 100 mg oral tablet Start: 09/23/22 9:30:00 EDT, 1 tab, PO, Daily Start Date: 09/23/22 Status: Ordered Metoprolol Succinate ER 50 mg oral tablet, extended release Start: 03/03/23 9:06:00 EDT, 1 tab, PO, Daily Start Date: 03/03/23 Status: Ordered MetroCream 0.75% topical cream Start: 02/26/21 9:26:00 EDT, 1 appl, topical, bid, Disp# 45 g, Refills: 3, To face for reza-oral dermatitis BID, Pharmacy: [facility] Start Date: 02/26/21 Status: Ordered Neurontin 300 mg oral capsule Start: 02/18/22 8:41:00 EDT, See Instructions, Disp# 90 cap, Refills: 1, 1 cap PO qhs x 3 days, then 1 cap PO BID x3 days, then 1 cap PO TID in addition to usual gabapentin dose, Pharmacy: [facility] Start Date: 02/18/22 Status: Ordered Nurtec ODT 75 mg oral tablet, disintegrating Start: 01/20/23 9:32:00 EDT Start Date: 01/20/23 Status: Ordered pantoprazole 40 mg oral granule, delayed release Start: 11/25/22 9:57:00 EDT, 1 packet, PO, Daily, Disp# 30 packet, Refills: 2, Pharmacy: [facility] Start Date: 11/25/22 Stop Date: 02/23/23 Status: Ordered Pepcid 20 mg oral tablet Start: 10/04/22 11:38:00 EDT, 1 tab, PO, qhs, Disp# 30 tab, Refills: 2, Pharmacy: [facility] Start Date: 10/04/22 Stop Date: 01/02/23 Status: Ordered Zofran 4 mg oral tablet Start: 02/23/18 11:07:00 EDT, 1 tab, PO, bid, Disp# 20 tab, PRN: as needed for nausea/vomiting Start Date: 02/23/18 Status: Ordered Mental Status 03/20/23 Barriers to Learning one year None evide nt Mandatory Health Literacy Documentation Yes Health Literacy Communication Barriers N ever Primary Language Egyptian Problem List Condition Confirmation Course Effective Dates Status Health St atus Informant Right ankle pain Confirmed Active Atypical nevi Confirmed Active Skin cancer, basal cell Confirmed Active Multiple nevi Confirmed Active Changing skin lesion Confirmed Active FAMILY HISTORY OF OTHER SPECIFIED MALIGNANT NEOPLASM 1 Confirmed Active Right foot pain Confirmed Active Heartburn Confirmed Active HTN (hypertension) Confirmed Active Hypertrophic scar Confirmed Active Inflamed seborrheic keratosis Confirmed Active Milia Confirmed Active Actinic keratoses Confirmed Active Myofascial pain Confirmed Active Schwannoma Confirmed Active Osteoporosis Confirmed Active Elbow pain, right Confirmed Active Right arm pain Confirmed Active Left knee pain Confirmed Active Numbness and tingling in right hand Confirmed Active Perioral dermatitis Confirmed Active PERSONAL HISTORY OF OTHER MALIGNANT NEOPLASM OF SKIN 2 Confirmed Active Rosacea Confirmed Active Seborrheic keratosis Confirmed Active Seborrheic keratoses Confirmed Active Spider angioma Confirmed Active 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 11/17/20 Completed Shave biopsy of skin 09/13/20 Comp leted Mouth 10/2019 Completed Surgery 2 10/2019 Completed Tibial plateau 06/12/18 Completed Right Guyon's canal decompression. 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 03/29/15 Completed Colonoscopy 09/2014 Completed Endoscopy 09/2014 Completed Electrodesiccation with curettage 12/14/13 Completed Ulnar nerve entrapment 4 11/25/13 Completed Cholecystectomy 05/2013 Completed Nerve conduction Complete d surgery for scar removal Completed Tonsillectomy Completed 1left knee 2otherostopy and removal of materials on left knee 3Revision ulnar neurolysis, right elbow 4right arm Social History Social History Type Response Smoking Status Never smoked cigaret jesus Sex Female .Outpt Proc * MD Joey, Apolonia Anne: PERFORM Event Display: .Outpt Proc Authored Date: [id number] OUTPATIENT PROCEDURE Name: ALYSHA ULLOA Patient Number: [id number] : 1960 Date of Service: 03/20/2023 Pt here for biopsy left nose- 1-2mm, fibrous papule vrs BCC. The area was identified and time out was completed. Verbal informed consent was obtained with the patient aware of the possibility of bleeding, scarring and infection and they did elect to proceed. The site was cleansed with alcohol and anesthetized with 1% lidocaine without epinephrine. Time out was performed and scanned into the patient's chart. Tangential shave biopsy was performed, hemostasiswas achieved with cautery and the area was dressed with Vaseline and a bandage. Patient was given verbal and written instructions regarding wound care. My office will be in touch with results. Call with any problems. Photograph(s) was/were taken to document location and verbal informed consent was obtained to use the [employer] Camera Capture selina. Electronic Signature on File Electronically Reviewed/Signed by: Apolonia Cook MD Author Signature Dt/Tm:03/20/2023 11:42 AM Department of Dermatology [facility] Patient Care team information Care Team Personnel Name: MD Dial Joseph L Position: Physician - Rheumatology Member Role: Lifetime Relationship Address: Address: [address] [place] [id number] Name: DO Lan Laura L Position: Referring DIRECT Member Role: Primary Care Provider Address: Address: [address] [place] [address] Care Team Related Persons Name: YIMI CROFT Address: home [address] [place] [phone] Name: YIMI CROFT Address: home [address] [place] [phone] Name: CATHERINE CROFT Address: home [address] [place] [phone]
[2023-03-27] MEDS: GABAPENTIN 250 MG/5 ML 470 ML BTL PO SCH (14:30)
--- NOTE | 2023-03-27 17:37 | Hospitalist Progress Note ---
Date of Service March 27, 2023 Assessment & Plan (1) Hypertensive urgency: Plan Patient is a 62-year-old female who has a significant past medical history of hypertension, migraine, chronic ulnar nerve palsy and currently disabled for such who presented to ED at the referral of cardiology due to resistant HTN. HTN Urgency Chest Pressure likely due to above Uncontrolled hypertension --Chest CTA: No thoracic aortic dissection. No pulmonary emboli. No consolid ation to suggest pneumonia. Small pericardial effusion, similar to CT of April 08, 2019. --Head CT:No acute intracranial abnormality. --ECHO: Compared to prior study, no significant change. Moderate concentric LVH. EF 55 to 60%. Incidental small anterior pericardial effusion, grade 1 diastolic dysfunction. --Renal Artery Duplex: No sonographic evidence of renal artery stenosis. --Normal TSH --- Blood work for secondary hypertension pending --Normal lipid panel Appreciate cardiology input Continue losartan Started on Coreg, Aldactone Consider adding Procardia XL Increase Coreg to 12.5 mg twice daily Plan for pharmacological stress test tomorrow N.p.o. after midnight Headache Likely due to above H/O Migraines Follows Dr. Villalta --Head CT: No acute intracranial abnormality. Improved Chronic ulnar nerve palsy s/p multiple decompressions follows Dr. Suresh at [facility] ortho wears Limb restricting bracelet b/c of this; however spoke with staff at [facility] who states this is not indicated and she can have IV access Chronic Dysphagia follows GI Needs pills crushed or with yogurt Continue PPI, pepcid DVT Px: Lovenox SQ Code Status Full Code Admission and Anticipated Discharge Date Admission Date: March 25, 2023 Subjective Patient is seen and examined at bedside Less headache today Reports chest pain with minimal exertion Plan for stress test tomorrow Review of Systems Review of Systems: All systems reviewed & are unremarkable except as noted in Subjective Physical Exam Physical Exam: Physical Exam: Vitals signs as noted above General Appearance:Thin, no apparent distress Head: normocephalic, Atraumatic Eyes: normal inspection, EOMI Neck: supple, Trachea midline Respiratory/Chest: Normal breath sounds, CTA, No accessory muscle use Cardiovascular: S1, S2, No murmur Abdomen/GI:Soft, Non tender, Bowel sounds present Extremities/Musculoskeletal:normal inspection, no edema Neurologic/Psych:AAOX3, grossly no focal neurological deficits Skin: normal color, warm Results & Data Results & Data Vital Signs (Past 12 Hours) Vital Signs Temp Pulse Pulse Resp BP Pulse Ox O2 Del Method 03/27/23 17:00 79 03/27/23 16:29 37.2 C 79 17 156/83 H 95 Room Air 03/27/23 11:06 36.8 C 77 17 140/88 96 Room Air 03/27/23 09:08 77 03/27/23 07:46 36.8 C 66 17 153/88 H 96 Room Air Laboratory Results Short CBC 03/27/23 Range/Units 07:01 WBC 5.31 (4.8-10.8) K/ul Hgb 13.0 (12.0-16.0) g/dl Hct 37.8 (37.0-47.0) % Plt Count 155 (130-400) K/uL BMP 03/27/23 07:01 Sodium 140 Potassium 3.8 Chloride 105 Carbon Dioxide 31 BUN 12 Creatinine 0.64 Glucose 103 H Calcium 9.3 Liver Function 03/27/23 Range/Units 07:01 Total Bilirubin 1.9 H (0.2-1.0) mg/dl AST 13 (13-39) U/L ALT 9 (7-52) U/L Alkaline Phosphatase 50 (34-104) U/L Albumin 4.1 (3.4-5.0) gm/dl
[2023-03-27] MEDS: carvediloL 12.5 MG TAB PO SCH (18:42)
[2023-03-27] MEDS: FAMOTIDINE 20 MG TAB PO SCH (20:02)
--- OUTSIDE RECORDS SUMMARY | 2023-03-27 22:54 | External Medical Summary | Summary of Care ---
Author Name Unknown Organization [facility] Address [address] [facility] [place] [address] Phone [phone] Care Team Providers Care Steeping Press Operator Name Role Phone Karolina Haskins PA-C Primary Care Provider [phone] Reason for Visit * Reason Comments NEW PATIENT Encounter Details Date Type Department Care Team (Late st Contact Info) Description 03/25/2023 10:00 AM EST Office Visit Cardiology, [facility] [address] [place] [address] Juan Luis Gordon, [address] [place] [address] HTN, goal below 140/90* Allergies Active Allergy Reactions Criticality Noted Date Comments Diphenhydramine Hcl Tachycardia High 04/21/2017 Chlorthalidone Diarrhea,Other (Plea se comment) 03/25/2023 Hypokalemia Chocolate 06/14/2020 Other reaction(s): Hives, Swelling Chocolate Flavor Hives 09/21/2009 Clopidogrel Rash 02/21/2020 Other reaction(s): fast heart rate Codeine 09/24/2011 hallucinate Hydrochlorothiazide 07/14/2020 Diarrhea Hydrocodone Hives High 07/08/2018 Oxycodone-Acetaminophen Psych complications High 04/2018 Hallucinations And itching Statins 05/23/2020 Other reaction(s): leg pain Tetracycline Hives Medium 01/17/2017 documented as of this encounter (statuses as of 03/25/2023) Medications Medication Sig Dispensed Refills Start Date End Date Status Silver sulfADIAZINE 1 % External Cream (Silvadene)Indicati ons:Skin irritation Apply topically to affected area daily. Apply to burn 50 g 1 09/25/2022 Active Famotidine 20 MG Oral Tablet (Pepcid)Indications :Globus sensation,Gastroeso phageal reflux disease without esophagitis,Dysphag ia, unspecified type Take 1 Tablet by mouth 2 times a day as needed for Heartburn. 180 Tablet 1 10/29/2022 Active Ondansetron 4 MG Oral Tablet Disintegrating (Zofran)Indications :Nausea Place 1 Tablet on tongue every 8 hours as needed for Nausea. dissolve on tongue. 30 Tablet 0 10/29/2022 Active Escitalopram Oxalate 5 MG/5ML Oral Solution (Lexapro)Indication s:ZOHREH (generalized anxiety disorder) Take 20 mL by mouth at bedtime. 600 mL 3 10/29/2022 Active Additional Information Patient not taking.Reported on 02/12/2023 Clotrimazole 1 % External Cream (Lotrimin)Indicatio ns:Skin irritation Apply topically to affected area 2 times a day. Apply to gluteal cleft 30 g 1 10/29/2022 Active Losartan Potassium 100 MG Oral Tablet (Cozaar)Indications :Essential hypertension,Migrai ne without aura and without status migrainosus, not intractable Take 1 Tablet by mouth in the morning. 30 Tablet 5 01/07/2023 Active Gabapentin 250 MG/5ML Oral Solution Take 10 mL by mouth in the morning and 10 mL before bedtime. 0 01/22/2023 Active LORazepam 2 MG Oral Tablet (Ativan)Indications :Persistent insomnia Take 1 Tablet by mouth at bedtime. 30 Tablet 0 03/03/2023 Active Metoprolol Succinate ER 25 MG Oral Tablet Extended Release 24 Hour (toPROL XL) Take 2 Tablets by mouth in the morning. 180 Tablet 3 03/03/2023 Active Additional Information Patient taking differently:50 mg [id number], Reported on 03/25/2023 LORazepam 1 MG Oral Tablet (Ativan)Indications :Stress Take 1 tab by mouth up to twice per day as needed (in addition to the 2 mg taken at bedtime) 60 Tablet 0 03/09/2023 Active Pantoprazole Sodium 40 MG Oral Tablet Delayed Release (Protonix)Indicatio ns:Nutritional marasmus (HCC) Take 1 Tablet by mouth in the morning. 90 Tablet 3 03/17/2023 Active Nurtec 75 MG Oral Tablet Disintegrating (Rimegepant Sulfate) Place 1 Tablet under the tongue as needed (Migraine). 0 01/20/2023 Active Rizatriptan Benzoate 10 MG TBDP TAKE 1 TABLET AT ONSET OF HEADACHE. MAY REPEAT IN 2 HOURS NEEDED MAXIMUM 2 TO 3 DAYS A WEEK 5 07/14/2017 3 Discontinu ed(Medicat ion List Clean Up) Ubrogepant 100 MG Oral Tablet (Ubrelvy) 0 09/13/2020 3 Discontinu ed(Medicat ion List Clean Up) Meclizine HCl 25 MG Oral Tablet (Antivert)Indicatio ns:Dizziness Take 1 Tablet by mouth 3 times a day as needed for Dizziness. 30 Tablet 1 12/27/2022 3 Discontinu ed(Medicat ion List Clean Up) Chlorthalidone 25 MG Oral Tablet (Hygroton)Indicatio ns:HTN, goal below 140/90 Take 1 Tablet by mouth in the morning. In the morning.. 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 Dr Gonsales--Farhana Migraines Overview: sees neurology --on Maxalt and zofran. documented as of this encounter (statuses as of 03/25/2023) Resolved Problems Problem Noted Date Diagnosed Date Resolved Date Dysfunction of right eustachian tube 05/08/2019 10/13/2020 documented as of this encounter (statuses as of 03/25/2023) Immunizations Name Administration Dates Next Due COVID-19 mRNA, LNP-s, No Pre serve, 2-Dose Series (Go Dish) 04/25/2021,09/07/2020,08/17/2020 SEASONAL INFLUENZA, PF, 6 M & Above, IM , (FLULAVAL or FLUZONE) 02/04/2023,01/23/2021,02/02/2020,2018,04/15/2018,02/05/2017 Seasonal Influenza, Quadriva lent, No Preserve, IM 02/08/2022 TDAP (age 10 and older)(Boostrix) 02/12/2013 Zoster Vaccine Recombinant (Shingrix) 06/22/2020 ,02/29/2020 documented as of this encounter Social History Tobacco Use Types Packs/Day Years Used Date Smoking Tobacco: Never Passive Smoke Exposure: Past Smokeless Tobacco: Never Tobacco Cessation:Counseling Given: No Comments:As a child Alcohol Use Standard Drinks/Week Comments No 0 (1 standard drink = 0.6 oz pur e alcohol) PHQ-2 Answer Date Recorded PHQ Adult Total Score 0 11/14/2021 Hunger Vital Sign Answer Date Recorded Within the past 12 months, y ou worried that your food would run out before you got the money to buy more. Never true 06/18/19 23 Within the past 12 months, t he food you bought just didn't last and you didn't have money to get more. Never true 06/18/2022 Sex and Gender Information Value Date Recorded Sex Assigned at Female 12/08/2018 2:15 PM EDT Gender Identity Female 12/08/2018 2:15 PM EDT Sexual Orientation Straight 06/18/2022 9: 25 AM EST Sexual Orientation Choose not to disclose 2022 9:25 AM EST Job Start Date Occupation Industry Not on file Not on file Not on file documented as of this encounter Last Filed Vital Signs Vital Sign Reading Time Taken Comments Blood Pressure 210/96 03/25/2023 9:41 AM EST Pulse 62 03/25/2023 9:41 AM EST Temperature - - Respiratory Rate 14 03/25/2023 9:41 AM EST Oxygen Saturation - - Inhaled Oxygen Concentration - - Weight 52.8 kg (116 lb 8 oz) 03/25/2023 9:41 AM EST Height - - Body Mass Index 20 02/12/2023 8:36 AM EDT documented in this encounter Progress Notes * Juan Luis Gordon, - 03/25/2023 11:00 AM EST Addendum: Patient also tells me that she is had difficulty swallowing. She was worked up with GI in his had EGD tests this within the recent past. She even has relative difficulty swallowing small pills such as her metoprolol succinate which she was breaking in half. She was able to take her losartan which is a small pill with yogurt. It may be that a transdermal formulation of clonidine would be a reasonable alternative in her case. Juan Luis Gordon DO * Juan Luis Gordon DO - 03/25/2023 9:57 AM EST Cardiology Consultation [facility] 03/25/2023 PCP: KAROLINA HASKINS Francine Gonzalez [place], [place] [id number] History of Present Illness: Esther Gil is a 62 year old year old female seen in cardiology consultation per the request of Cb Angel MD for the evaluation of hypertension and chest tightness. She is accompanied by her brother in law, Jason. 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 She has a history of high blood pressure that he had been previously controlled on medications. Perreview of her chart, she would initially been on a relatively low dose of losartan, 25 milligrams dating back to 2016. In 2020 she was on losartan/hydrochlorothiazide at a dose of 50/12.5 milligrams daily. Since July of this year, she was required escalated doses of blood pressure medication with losartan having been increased to 100 milligrams daily. Hydrochlorothiazide was discontinued due to side effect of diarrhea. In July, she had been treated with amlodipine 5 milligrams daily which was d iscontinued due to lower extremity edema. More recently, she was prescribed chlorthalidone and after only taking it for 1 day she was seen in the emergency room on 03/21/2023 with a presenting blood pressure of 216/93, multiple episodes of loose stool, and potassium level 3.3. Chlorthalidone was therefore discontinued. Her blood pressure was 177/91 when she was discharged that day with a negativetroponin. On 02/05/2023 she was prescribed metoprolol starting at a dose of 12.5 milligrams daily. She had been seen in the emergency room on 02/11/2023 with subjective palpitations and her systolicblood pressure on arrival was 207/91. Her metoprolol dose has since been titrated to 50 milligrams daily. She was ongoing issues with high blood pressure. Initial reading on presentation to the clinic today was 210/96, she rested for 20 minutes, and I retook her blood pressure again manually, personally,in the left upper arm with measurement of 200/100 millimeters Hg. She had taken her antihypertensive medications today and had taken a dose of lorazepam as well. She has current symptoms of chest pressure with aerobic exertion. She has felt this today, and has waxed and waned over the last several weeks. She was also had worsening headaches. And she endorses symptoms of a headache behind her eyes at the level of her temples today. No visual deficits. Her past cardiac history is notable for having been followed for a small circumferential pericardial effusion. This was most recently assessed on an echocardiogram performed 6 years ago in 2017. Review of Systems: All systems reviewed & are unremarkable except as noted in HPI & below Past Medical History: Patient Active Problem List Diagnosis Code HTN, goal below 140/90 I10 Ulnar nerve damage S54.00XA Migraines G43.909 Osteoporosis M81.0 Past Surgical History: Procedure Laterality Date APPENDECTOMY W/OTHER PROCEDURE COLONOSCOPY, DIAGNOSTIC (RECTUM) 09/30/2011 adenomatous polyp repeat in 3 yrs COLONOSCOPY, DIAGNOSTIC (RECTUM) 09/16/2014 diverticulosis, repeat 5 yrs/[facility] COLONOSCOPY, DIAGNOSTIC (RECTUM) 10/27/2020 History of colon polyps, diverticulosis, 5y recall/ [facility] EGD, FLEXIBLE, DIAGNOSTIC 03/24/2013 UPPER GI ENDOSCOPY DIAGNOSTIC performed by Toan Ellsworth MD at [facility] EGD, FLEXIBLE, DIAGNOSTIC 09/16/2014 acid reflux, benign fundic gland polyps/[facility] EGD, FLEXIBLE, DIAGNOSTIC 05/21/2019 normal / [facility] EGD, FLEXIBLE, DIAGNOSTIC 10/27/2020 Normal exam/ [facility] EGD, FLEXIBLE, DIAGNOSTIC N/A 11/15/2021 [facility], no endoscopic esophageal abnormallity to explain dysphagis, normal scope / biopsies normal / EGD, FLEXIBLE, DIAGNOSTIC 10/31/2022 biopsies normal/ESOPHAGOGASTRODUODENOSCOPY (EGD), FLEXIBLE, TRANSORAL, DIAGNOSTIC performed by Salbador An MD at ENDOSCOPY [facility] REPAIR OF BRACHIAL PLEXUS Bilateral TOTAL HYSTERECTOMY Family History: Mother due to complications of lymphoma at the age of 70 Father in 2019 after a fracture with previous history of CAD and CABG The patient's sister has no history of heart disease or hypertension She is a maternal aunt with a history of obesity and fgumoeesj-mm-fqweusw high blood pressure. 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 Stopped working after multiple surgeries for ulnar nerve Tobacco Use Smoking status: Never Passive exposure: Past Smokeless tobacco: Never Tobacco comments: As a child Vaping Use Vaping Use: Never used Substance and Sexual Activity Alcohol use: No Drug use: No Allergies: Benadryl [diphenhydramine hcl], Hydrocodone, Percocet [oxycodone- acetaminophen], Tetracycline, Chlorthalidone, Chocolate, Chocolate flavor, Clopidogrel, Codeine, Hydrochlorothiazide, and Statins Medications: Current Outpatient Medications Medication Sig Dispense Refill Silver sulfADIAZINE 1 % External Cream (Silvadene) Apply topically to affected area daily. Apply toburn 50 g 1 Famotidine 20 MG Oral Tablet (Pepcid) Take 1 Tablet by mouth 2 times a day as needed for Heartburn.180 Tablet 1 Ondansetron 4 MG Oral Tablet Disintegrating (Zofran) Place 1 Tablet on tongue every 8 hours as needed for Nausea. dissolve on tongue. 30 Tablet 0 Clotrimazole 1 % External Cream (Lotrimin) Apply topically to affected area 2 times a day. Apply togluteal cleft 30 g 1 Losartan Potassium 100 MG Oral Tablet (Cozaar) Take 1 Tablet by mouth in the morning. 30 Tablet 5 Gabapentin 250 MG/5ML Oral Solution Take 10 mL by mouth in the morning and 10 mL before bedtime. LORazepam 2 MG Oral Tablet (Ativan) Take 1 Tablet by mouth at bedtime. 30 Tablet 0 Metoprolol Succinate ER 25 MG Oral Tablet Extended Release 24 Hour (toPROL XL) Take 2 Tablets by mouth in the morning. (Patient taking differently: Take 2 Tablets by mouth every evening.) 180 Tablet 3 LORazepam 1 MG Oral Tablet (Ativan) Take 1 tab by mouth up to twice per day as needed (in addition to the 2 mg taken at bedtime) 60 Tablet 0 Pantoprazole Sodium 40 MG Oral Tablet Delayed Release (Protonix) Take 1 Tablet by mouth in the morning. 90 Tablet 3 Nurtec 75 MG Oral Tablet Disintegrating (Rimegepant Sulfate) Place 1 Tablet under the tongue as needed (Migraine). Escitalopram Oxalate 5 MG/5ML Oral Solution (Lexapro) Take 20 mL by mouth at bedtime. (Patient not taking: Reported on 02/12/2023) 600 mL 3 No current facility-administered medications for this visit. OBJECTIVE/PHYSICAL EXAMINATION: BP 210/96 (BP Site: Left Arm, BP Position: Sitting, BP Cuff Size: Regular) | Pulse 62 | Resp 14 | Wt 52.8 kg (116 lb 8 oz) | BMI 20.00 kg/m | BSA 1.54 m BP Readings from Last 4 Encounters: 03/25/23 210/96 03/17/23 148/82 03/12/23 172/90 02/13/23 160/92 General: no acute distress and stated age Eyes: conjunctiva are pink and non-injected, sclera clear Neck: normal jugular venous pulse, no hepatojugular reflux Chest: normal shape and normal respiratory effort Lungs: clear to auscultation and percussion Cardiac Exam: - regular heart sounds, no murmurs, rubs, or gallops Abdomen: abdomen soft, non-tender, no abnormal masses and no hepatosplenomegaly Musculoskeletal: no gait disturbance, no weakness Extremities: no edema and no cyanosis Neuro: grossly normal exam Psych: appropriate affect and insight. Data: EKG performed at [facility] 03/21/2023 and interpreted independently reveals sinus bradycardia 56 beats per minute. Normal tracing, unchanged compared to 03/10/2023. IMPRESSION: 62 year old year old female who presents with wvbjivgrd-wj-hwftlfz hypertension. Although she is had similar high blood pressure readings for at least the last 6 weeks, I would characterize this is ahypertensive urgency with symptoms of chest discomfort and headache. RECOMMENDATIONS/PLAN: We discussed options such as titration of medications as an outpatient and further cardiac testing,or proceeding with having her family member transfer her to the emergency department and have her likely admitted for evaluation and titration of medications. She and I both share concerns with regards to her symptoms and the need to get this blood pressure under control and will proceed to hospital level evaluation. Given the drastic changes in her blood pressure over the last few months since July, would recommend consideration of a secondary cause of hypertension and would consider proceeding with a renal vascular scan, aldosterone to plasma renin activity ratio, fractionated catecholamines in serum metanephrines. She had already had a normal TSH back in October of this year. I will send this not with her to the ED and will call in provider report to an emergency medicine provider as well as my colleague who is covering the inpatient cardiology service today at the hospital. I spent a total of Greater than 55 mins (exact time 56 mins) on the date of service in preparation,delivery, and documentation of the care provided to Esther Gil excluding any time spent in the performance of separately billed services. Juan Luis Gordon DO Cardiology, [address] [address] This chart was completed in part utilizing [employer] Speech Voice Recognition Software. Grammatical errors, random word insertions, prounoun errors, and incomplete sentences are an occasional consequence of this system due to software limitations, ambient noise, and hardware issues. Any formal questions or concerns about the content, text, or information contained within the body of this dictation should be directly addressed to the provider for clarification. documented in this encounter Nursing Notes * Shila Jones RN - 03/25/2023 9:51 AM EST Examination Room: 12 Name: Esther Gil Date of : (1960). Reason for Visit: New patient Interim Hospitalization(s): [facility] Problems/Concerns: Here for initial evaluation based on history of HTN. Noting ongoing symptoms of chest pressure/headache since beginning metoprolol. Chest pressure does worsen with activity/walking. Chest Pain/SOB: Denies shortness of breath. Did bring home bp cuff today: 189/100 HR 65 [facility] Discussed: Not applicable [facility] [employer] is a way you can talk to your provider online through e-mail. Would you like to sign up? I can activate it for you? ALREADY ACTIVE Patient was instructed to not get up on the exam table until directed and assisted by their provider; patient is to remain seated in the chair/ wheelchair/ exam table for fall prevention and safety reasons. Patient is aware to have assistance to step down off exam table with personnel. Patient voiced full comprehension of instructions. documented in this encounter Plan of Treatment Upcoming Encounters Date Type Department Care Team (Late st Contact Info) Description 03/26/2023 4:20 PM EST Office Visit [facility] [address] [place] [phone] SeptemberCb MD [address] [place] [address] 04/15/2023 1:00 PM EST Office Visit Cardiology, [facility] [address] [place] [address] Juan Luis Gordon DO [address] [place] [address] 05/01/2023 11:20 AM EST Office Visit [facility] [address] [facility] [phone] Karolina Haskins PA-C [address] [facility] [place] [id number] 05/02/2023 2:00 PM EST Cardiac Studies Cardiac Studies, [place] [address] [place] [address] Scheduled Procedures Name Priority Associated Diagnoses Date/Ti me COLONOSCOPY FLEXIBLE PROXIMAL DIAGNOSTIC Recall Hx of colonic polyps Health Maintenance Due Date Last Done Comments HIV Screening 1975 Hepatitis C Screening 1978 *BISPHONATE OR OTHER ACCEPTABLE MEDICATION NEEDED FOR OSTEOPOROSIS (REFER TO SMARTSET #1146) 07/25/2017 DXA Scan 10/10/2022 10/10/2020, 04/14/2017 Depression Screening 11/14/2022 11/14/2021 COVID-19 Vaccine ( - season) 2023 04/25/2021, 09/07/2020, 08/17/2020 DTaP,Tdap,and Td Vaccines (2 - Td or Tdap) 02/12/2023 02/12/2013 *NEPHROLOGY REFERRAL DUE TO RESISTANT HTN 03/06/2023 Mammogram 11/27/2023 11/26/2022, 07/12/2021, 08/03/2020, Additional history exists GFR 12/28/2023 12/27/2022, 10/11, 07/10/2022, Additional history exists Lipid Panel 02/20/2025 02/21/2020 Albumin/Creatinine Ratio 07/10/2025 07/10/2022, 01/11 COLONOSCOPY-EVERY 5 YRS AGES 18-100 10/27/2025 10/27/2020, 09/16/2014, 09/30/2011, Additional history exists Zoster Vaccines Completed 06/22/2020, 02/29/2020 VITAMIN D LEVEL ONCE IN A LIFETIME-USE SMARTSET# [id number] Completed 05/17/2021, 07/21/2020, 08/31/2018, Additional history exists Influenza Vaccine (FLU shot) Completed , 02/08/2022, 01/23/2021, Additional history exists GARDASIL-HPV IMMUNIZATION SERIES Aged Out No longer eligible based on patient's age to complete this topic Hepatitis B Aged Out No longer eligi ble based on patient's age to complete this topic MENINGOCOCCAL (MENACTRA/MENVEO) Aged Out No longer eligible based on patient's age to complete this topic Pneumococcal Vaccine: Pediatrics (0 to 5 Years) and At-Risk Patients (6 to 64 Years) Aged Out No longer eligible based on patient's age to complete this topic documented as of this encounter Medical Devices Not on filedocumented as of this encounter Visit Diagnoses Diagnosis HTN, goal below 140/90- Primary Unspecified essential hypertension documented in this encounter Advance Directives Documents on File Type Date Recorded 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
--- OUTSIDE RECORDS SUMMARY | 2023-03-27 22:54 | External Medical Summary | Summary of Care ---
Author Name Unknown Organization [facility] Address [address] [place] [address] Phone [phone] Care Team Providers Care Climate Change Analyst Name Role Phone Karolina Carranza PA-C Primary Care Provider [phone] Reason for Visit * Reason Comments NEW PATIENT Encounter Details Date Type Department Care Team (Late st Contact Info) Description 03/25/2023 10:00 AM EST Office Visit Cardiology, [facility] [address] [place] [address] Juan Luis Gordon, [address] [place] [address] HTN, goal below 140/90* Allergies Active Allergy [...] Active Additional Information Patient taking differently:50 mg [id number], Reported on 03/25/2023 LORazepam 1 MG Oral [...] mRNA, LNP-s, No Pre serve, 2-Dose Series ([employer]) 04/25/2021,09/07/2020,08/17/2020 SEASONAL INFLUENZA, PF, 6 M & [...] - 03/25/2023 9:57 AM EST Cardiology Consultation [facility] 03/25/2023 PCP: KAROLINA CARRANZA Francine Del Castillo [place], [place] [id number] History of Present Illness: Esther Gil is a 62 year old year old female seen in cardiology consultation per the request of Cb Angel MD for the evaluation of hypertension and chest tightness. She is accompanied by her brother in law, Jason. 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 She has a history of high blood [...] COLONOSCOPY, DIAGNOSTIC (RECTUM) 09/16/2014 diverticulosis, repeat 5 yrs/[facility] COLONOSCOPY, DIAGNOSTIC (RECTUM) 10/27/2020 History of colon polyps, diverticulosis, 5y recall/ [facility] EGD, FLEXIBLE, DIAGNOSTIC 03/24/2013 UPPER GI ENDOSCOPY DIAGNOSTIC performed by Toan Ellsworth MD at [facility] EGD, FLEXIBLE, DIAGNOSTIC 09/16/2014 acid reflux, benign fundic gland polyps/[facility] EGD, FLEXIBLE, DIAGNOSTIC 05/21/2019 normal / [facility] EGD, FLEXIBLE, DIAGNOSTIC 10/27/2020 Normal exam/ [facility] EGD, FLEXIBLE, DIAGNOSTIC N/A 11/15/2021 [facility], no endoscopic esophageal abnormallity to explain dysphagis, normal scope / biopsies normal / EGD, FLEXIBLE, DIAGNOSTIC 10/31/2022 biopsies normal/ESOPHAGOGASTRODUODENOSCOPY (EGD), FLEXIBLE, TRANSORAL, DIAGNOSTIC performed by Salbador An MD at ENDOSCOPY [facility] REPAIR OF BRACHIAL PLEXUS Bilateral TOTAL HYSTERECTOMY Family History: Mother due to complications of lymphoma at the age of 70 Father in 2019 after a fracture with previous history of CAD and CABG The patient's sister has no history of heart disease or hypertension She is a maternal aunt with a history of obesity and frcqnscnc-zl-kzvchjq high blood pressure. 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 Data: EKG performed at [facility] 03/21/2023 and interpreted independently reveals sinus bradycardia 56 beats per minute. Normal tracing, unchanged compared to 03/10/2023. IMPRESSION: 62 year old year old female who presents with nhmkhaqcr-du-tdpecdh hypertension. Although she is had similar high [...] billed services. Juan Luis Gordon DO Cardiology, [address] [address] This chart was completed in part utilizing [employer] Speech Voice Recognition Software. Grammatical errors, random [...] Reason for Visit: New patient Interim Hospitalization(s): [facility] Problems/Concerns: Here for initial evaluation based on history of HTN. Noting ongoing symptoms of chest pressure/headache since beginning metoprolol. Chest pressure does worsen with activity/walking. Chest Pain/SOB: Denies shortness of breath. Did bring home bp cuff today: 189/100 HR 65 [facility] Discussed: Not applicable My [facility] is a way you can talk to [...] Care Team (Late st Contact Info) Description 04/15/2023 1:00 PM EST Office Visit Cardiology, [facility] [address] [facility] [place] [address] Juan Luis Gordon DO [address] [place] [address] 05/01/2023 11:20 AM EST Office Visit [facility] [address] [facility] [phone] Karolina Carranza PA-C [address] [place] [address] 05/02/2023 2:00 PM EST Cardiac Studies Cardiac Studies, [facility] [address] [facility] [place] [id number] Scheduled Procedures Name Priority Associated Diagnoses Date/Ti me COLONOSCOPY FLEXIBLE PROXIMAL DIAGNOSTIC Recall Hx of colonic polyps Health Maintenance Due Date Last Done Comments HIV Screening 1975 Hepatitis C Screening 1978 *BISPHONATE OR OTHER ACCEPTABLE MEDICATION NEEDED FOR OSTEOPOROSIS (REFER TO SMARTSET #1146) 07/25/2017 DXA Scan 10/10/2022 10/10/2020, 04/14/2017 Depression Screening 11/14/2022 11/14/2021 COVID-19 Vaccine ( season) 2023 04/25/2021, 09/07/2020, 08/17/2020 DTaP,Tdap,and Td [...] D LEVEL ONCE IN A LIFETIME-USE SMARTSET# 67706 Completed 05/17/2021, 07/21/2020, 08/31/2018, Additional history exists [...] Documents on File Type Date Recorded Patient Estimating Engineer Expl anation Advance Directives and Living Will 09/19/2019 ADVANCE DIRECTIVE / LIVING WILL Care Teams Climate Change Analyst Relationship Specialty Start Date End Date Karolina Carranza PA-C [address] [facility] [place] [address] PCP - General Physician Biscuit Maker 07/10/22 documented as of this encounter"
[2023-03-28] MEDS: carvediloL 12.5 MG TAB PO SCH ×2 (07:38→17:17)
[2023-03-28] MEDS: ENOXAPARIN INJ 40 MG/0.4 ML SYR SQ SCH (07:38)
[2023-03-28 08:02] LABS: BUN Creatinine Ratio 20.6 (10-20); Calcium 9.5 mg/dl (8.6-10.3); Creatinine Clr Calc Pharmacy 72.8 ml/min; Est GFR (African American) 109.9 ml/min; Est GFR (Non-African American) 94.8 ml/min; Potassium 3.8 mmol/L (3.5-5.1)
[2023-03-28] MEDS ORDERED: REGADENOSON 0.4 MG/5 ML SYR IV ONE (08:12)
[2023-03-28] MEDS: LANSOPRAZOLE 30 MG SOLTAB PO SCH (09:54)
[2023-03-28] MEDS: POTASSIUM CHLORIDE PWD 20 MEQ PACK PO SCH (10:06)
[2023-03-28] MEDS: LORATADINE 1 MG/1 ML PO SCH (10:06)
[2023-03-28] MEDS: LOSARTAN POTASSIUM 50 MG TAB PO SCH (10:06)
[2023-03-28] MEDS: SPIRONOLACTONE 25 MG TAB PO SCH (10:06)
[2023-03-28] MEDS: FUROSEMIDE 20 MG TAB PO SCH (10:06)
[2023-03-28] MEDS: MULTI VIT W/MINERALS LIQUID 15 ML UDP PO SCH (10:07)
--- NOTE | 2023-03-28 11:56 | Myocardial Perfusion Study ---
Date of Service March 28, 2023 Myocardial Perfusion Study [facility] Myocardial Perfusion Study Report Indication: Chest pain Patient performed stress test according to Lexiscan protocol for 4 minutes. Achieved a workload of 1.0 METS. Resting heart rate 79 bpm which samra to a maximum heart rate of 111 bpm. This value represents 71% of the maximal, age- predicted heart rate. Resting blood pressure 158/99 mmHg, samra to a maximum blood pressure of 168/94 mmHg. Stress test stopped due to completion of protocol. Symptoms: Chest discomfort, headache Normal heart rate and blood pressure response to Lexiscan injection. Resting ECG: Normal sinus rhythm. Stress ECG: Sinus tachycardia, no ischemia Myocardial perfusion imaging: For the stress portion of the study 21.2 mCi of Tc 99m Cardiolite IV was injected at 090 4 AM on 05/28/2022. 30 minutes following the injection imaging of the heart was performed in multiple projections. For the rest portion of the study 22 mCi of Tc 99m Cardiolite was injected IV at 4:45 PM. 1 hour following the injection, imaging of the heart was performed in the same projections, 03/27/2023. Raw data: Significant hepatic and small bowel uptake of isotopic tracer on stress rotating, raw data images. Extracardiac uptake adjacent to the inferior wall and apex. Right ventricle: Not well visualized. Gated SPECT imaging: Normal left ventricular size, and wall motion. Calculated ejection fraction 51%. Resting images: Normal perfusion. Stress imaging: There is a small defect of mild intensity involving left ventricular apex. There is a area of increased tracer uptake adjacent to the apical inferior wall likely secondary to small bowel uptake. Resultant ramp filter artifact noted. The apical defect is reversible when compared to resting images suggesting a small area of ischemia versus ramp filter artifact. Conclusion: 1. Small reversible apical myocardial perfusion defect suggesting ischemia, although may be secondary to ramp filter artifact. 2. Normal gated SPECT imaging. The left ventricular ejection fraction 51%.
[2023-03-28] MEDS: LORazepam 1 MG TAB PO SCH ×2 (12:00→20:22)
--- NOTE | 2023-03-28 14:04 | Cardiology Progress Note ---
Date of Service March 28, 2023 Assessment & Plan (1) Hypertensive urgency: (2) Uncontrolled hypertension: (3) LVH (left ventricular hypertrophy) due to hypertensive disease: (4) Chest pain: (5) Abnormal nuclear stress test: Plan Lexiscan nuclear stress test performed earlier today demonstrating apical ischemia versus artifact. Patient continues to note intermittent chest heaviness and tightness. Blood pressure improved. Recommend addition of 1/2 inch topical nitrates as she reports improvement of chest discomfort with nitroglycerin earlier in admission. Continue losartan, furosemide, potassium supplementation, carvedilol, and spironolactone. Risk, benefits, alternatives to cardiac catheterization discussed. Patient agreeable to proceed, however, due to scheduling, we will plan AM procedure on Friday. Admission and Anticipated Discharge Date Admission Date: March 25, 2023 Subjective 62-year-old female seen and examined at the bedside. Lexiscan nuclear stress test performed earlier today demonstrating a small apical, reversible defect suggestive of ischemia. Continues to note mild chest tightness intermittently over the past 24 hours. Denies shortness of breath or palpitations. No lightheadedness or dizziness. Review of Systems Review of Systems: All systems reviewed & are unremarkable except as noted in Subjective Physical Exam Constitutional: well nourished; no acute distress Respiratory: normal respiratory effort; no respiratory distress, no labored breathing and no retractions Cardiovascular: Rate/Rhythm: regular rate and regular rhythm Heart Sounds: normal S1 and normal S2; no murmur Vessels: no JVD and no carotid bruit Extremities: no edema Gastrointestinal (Abdomen): Inspection/Auscultation: normal bowel sounds; abdomen not distended and no abdominal edema Percussion/Palpation: abdomen soft; abdomen nontender, no guarding and abdomen not rigid Neurologic: CN's II-XI intact bilaterally Psychiatric: A+Ox3, euthymic affect Results & Data Vital Signs (Past 12 Hours) Vital Signs Temp Pulse Pulse Pulse Resp BP Pulse Ox 03/28/23 10:56 36.8 C 75 16 147/87 H 96 03/28/23 09:38 67 03/28/23 07:53 03/28/23 07:38 36.9 C 71 16 162/83 H 97 03/28/23 03:14 36.4 C L 65 18 127/72 96 O2 Del Method 03/28/23 10:56 Room Air 03/28/23 09:38 03/28/23 07:53 Room Air 03/28/23 07:38 Room Air 03/28/23 03:14 Room Air Laboratory Results Comprehensive Metabolic Panel 03/28/23 Range/Units 07:15 Sodium 139 (136-145) mmol/L Potassium 3.8 (3.5-5.1) mmol/L Chloride 103 (98-107) mmol/L Carbon Dioxide 29 (21-32) mmol/L BUN 13 (6-23) mg/dl Creatinine 0.63 (0.6-1.2) mg/dl Glucose 105 H (70-99(Fasting)) mg/dl Calcium 9.5 (8.6-10.3) mg/dl Intake and Output 03/27/23 03/28/23 03/28/23 22:59 06:59 14:59 Other: Other Intake Source npo # Unmeasured Voids 1 Weight 51.1 kg Weight Measurement Method Standing Scale (3) LVH (left ventricular hypertrophy) due to hypertensive disease Heart failure presence: without heart failure Qualified Code(s): I11.9 - Hypertensive heart disease without heart failure (4) Chest pain Chest pain type: unspecified Qualified Code(s): R07.9 - Chest pain, unspecified
[2023-03-28] MEDS: NITROGLYCERIN 2% OINTMENT 30GM TUBE EXT SCH ×2 (14:27→17:17)
[2023-03-28] MEDS: GABAPENTIN 250 MG/5 ML 470 ML BTL PO SCH (14:28)
--- NOTE | 2023-03-28 17:41 | Hospitalist Progress Note ---
Date of Service March 28, 2023 Assessment & Plan (1) Hypertensive urgency: Plan Patient is a 62-year-old female who has a significant past medical history of hypertension, migraine, chronic ulnar nerve palsy and currently disabled for such who presented to ED at the referral of cardiology due to resistant HTN. HTN Urgency Uncontrolled hypertension --Chest CTA: No thoracic aortic dissection. No pulmonary emboli. No consolidation to suggest pneumonia. Small pericardial effusion, similar to CT of April 08, 2019. --Head CT:No acute intracranial abnormality. --ECHO: Compared to prior study, no significant change. Moderate concentric LVH. EF 55 to 60%. Incidental small anterior pericardial effusion, grade 1 diastolic dysfunction. --Renal Artery Duplex: No sonographic evidence of renal artery stenosis. --Normal TSH --- Blood work for secondary hypertension pending --Normal lipid panel Appreciate cardiology input Continue losartan Started on Coreg, Aldactone Increased Coreg to 12.5 mg twice daily Monitor and adjust medications as needed Started on nitroglycerin R/O ACS Abnormal stress test Lexiscan nuclear stress test done morning 03/28/2023 suggestive of apical ischemia versus artifact. Given ongoing chest heaviness, dyspnea on exertion plan for cardiac catheterization eventually Started on nitroglycerin Headache Likely due to above H/O Migraines Follows Dr. Villalta --Head CT: No acute intracranial abnormality. Improved Chronic ulnar nerve palsy s/p multiple decompressions follows Dr. Suresh at [facility] ortho wears Limb restricting bracelet b/c of this; however spoke with staff at [place] who states this is not indicated and she can have IV access Chronic Dysphagia follows GI Needs pills crushed or with yogurt Continue PPI, Pepcid DVT Px: Lovenox SQ Code Status Full Code Admission and Anticipated Discharge Date Admission Date: March 25, 2023 Subjective Patient is seen and examined at bedside Had stress test earlier today States dyspnea improved but still has chest pain with exertion this morning No headache today No other complaints Review of Systems Review of Systems: All systems reviewed & are unremarkable except as noted in Subjective Physical Exam Physical Exam: Physical Exam: Vitals signs as noted above General Appearance:Thin, no apparent distress Head: normocephalic, Atraumatic Eyes: normal inspection, EOMI Neck: supple, Trachea midline Respiratory/Chest: Normal breath sounds, CTA, No accessory muscle use Cardiovascular: S1, S2, No murmur Abdomen/GI:Soft, Non tender, Bowel sounds present Extremities/Musculoskeletal:normal inspection, no edema Neurologic/Psych:AAOX3, grossly no focal neurological deficits Skin: normal color, warm Results & Data Results & Data Vital Signs (Past 12 Hours) Vital Signs Temp Pulse Pulse Resp BP Pulse Ox O2 Del Method 03/28/23 15:36 80 03/28/23 15:29 36.8 C 82 18 141/79 H 96 Room Air 03/28/23 10:56 36.8 C 75 16 147/87 H 96 Room Air 03/28/23 09:38 67 03/28/23 07:53 Room Air 03/28/23 07:38 36.9 C 71 16 162/83 H 97 Room Air Laboratory Results [facility] 03/28/23 07:15 Sodium 139 Potassium 3.8 Chloride 103 Carbon Dioxide 29 BUN 13 Creatinine 0.63 Glucose 105 H Calcium 9.5
[2023-03-28] MEDS ORDERED: PNEUMOCOCCAL VACCINE (PCV20) 20-VAL CONJ-DIP CRM/PF 0.5 ML SYR IM ONE (18:10)
[2023-03-28] MEDS: FAMOTIDINE 20 MG TAB PO SCH (20:22)
[2023-03-29] MEDS: NITROGLYCERIN 2% OINTMENT 30GM TUBE EXT SCH ×4 (00:55→17:43)
[2023-03-29] MEDS: ACETAMINOPHEN SUSP 325 MG/10.15 ML UDC PO PRN (00:56)
[2023-03-29 07:54] LABS: Hematocrit (blood only) 40.7 % (37.0-47.0); Hemoglobin 13.9 g/dl (12.0-16.0); Mean Corpuscular Hemoglobin 29.1 pg (25.0-34.0); Mean Corpuscular Hgb Conc 34.2 g/dL (32.0-36.0); Mean Corpuscular Volume 85.3 fL (80.0-100.0); Mean Platelet Volume 10.4 fL (9.4-12.4); Platelet Count 199 K/uL (130-400); RDW Coefficient of Variation 13.4 % (11.5-14.5); RDW Standard Deviation 41.6 fL (36.4-46.3); Red Blood Count 4.77 M/uL (4.20-5.40); White Blood Count 4.04 K/ul (4.8-10.8)
[2023-03-29 08:02] LABS: Potassium 3.7 mmol/L (3.5-5.1)
[2023-03-29] MEDS: LANSOPRAZOLE 30 MG SOLTAB PO SCH (08:02)
[2023-03-29 08:08] LABS: BUN Creatinine Ratio 22.4 (10-20); Creatinine Clr Calc Pharmacy 73.3 ml/min; Est GFR (African American) 107.7 ml/min; Est GFR (Non-African American) 92.9 ml/min
[2023-03-29] MEDS: ENOXAPARIN INJ 40 MG/0.4 ML SYR SQ SCH (08:56)
[2023-03-29] MEDS: SPIRONOLACTONE 25 MG TAB PO SCH (08:57)
[2023-03-29] MEDS: FUROSEMIDE 20 MG TAB PO SCH (08:57)
[2023-03-29] MEDS: carvediloL 12.5 MG TAB PO SCH ×2 (08:57→17:43)
[2023-03-29] MEDS: LORATADINE 1 MG/1 ML PO SCH (08:57)
[2023-03-29] MEDS: LOSARTAN POTASSIUM 50 MG TAB PO SCH (08:58)
[2023-03-29] MEDS: POTASSIUM CHLORIDE PWD 20 MEQ PACK PO SCH (08:58)
[2023-03-29] MEDS: MULTI VIT W/MINERALS LIQUID 15 ML UDP PO SCH (08:58)
[2023-03-29] MEDS: LORazepam 1 MG TAB PO SCH ×2 (09:11→20:41)
--- NOTE | 2023-03-29 11:34 | Cardiology Progress Note ---
Date of Service March 29, 2023 Assessment & Plan (1) Hypertensive urgency: (2) Uncontrolled hypertension: (3) LVH (left ventricular hypertrophy) due to hypertensive disease: (4) Chest pain: (5) Abnormal nuclear stress test: Plan 62 yo woman presenting with uncontrolled HTN * Presenting BP 220/100 * + Chest Pain * + ALMONTE * No AMBREEN * Chronically on Losartan 100 mg po per day + Toprol 50 mg po per day * No hx of HI * No hx of PVD * No hx of BECKY * No hx of Thyroid Disease * No hx of SEVEN * No hx of adrenal tumors/pathology * No Aortic Coarctation Dx: Hypertensive Emergency * Started on Labetalol * Started Clonidine * Lasix 20 PO x 1 * Nitropaste * Nuclear Stress Test with small apical reversible defect. Plans: * Continue Losartan 100 mg po per day * Continue Aldactone 25 mg po per day * LOPRESSOR (OFF) * Continue Coreg to 12.5 mg po BID * Chlorthalindone - significant diarrhea after taking chlorthalindone- will keep on lasix * Continue Lasix 20 mg po per day * K+ has been low despite being on Losartan - may be a clue to underlying adrenal challenge * Plans for outpt Endocrine Evaluation for Hyperadrenal State * Clonidine (OFF) * Continue Nitropaste as needed * May need Calcium Channel Farhan - Procardia XL * TSH - WNL * Renin/Kenney - pending * Catecholamine - pending * TOX negative * Troponin - WNL * LVEF 55-60%, moderate LVH, no major valve pathology, small anterior pericardial effusion. * Plan for coronary angiogram on Friday03/31/23. I provided 55 min of care to the patient, discussing management of CAD and angina. Admission and Anticipated Discharge Date Admission Date: March 25, 2023 Subjective Patient is seen and examined at bedside No chest pain since starting nitropaste. No N/V/ALMONTE; afebrile. No PND or orthopnea. Review of Systems Review of Systems: Complete review of systems is otherwise as stated above, negative, noncontributory. Physical Exam Physical Exam: thin woman in NAD No thyromegaly No elevation in JVP S1S2S4 No coarctation murmur CTA B No abdominal or RP bruits No abdominal masses appreciated No c/c/e - warm and perfusing Constitutional: well nourished; no acute distress Respiratory: normal respiratory effort; no respiratory distress, no labored breathing and no retractions Cardiovascular: Rate/Rhythm: regular rate and regular rhythm Heart Sounds: normal S1 and normal S2; no murmur Vessels: no JVD and no carotid bruit Extremities: no edema Gastrointestinal (Abdomen): Inspection/Auscultation: normal bowel sounds; abdomen not distended and no abdominal edema Percussion/Palpation: abdomen soft; abdomen nontender, no guarding and abdomen not rigid Neurologic: CN's II-XI intact bilaterally Psychiatric: A+Ox3, euthymic affect Results & Data Vital Signs (Past 12 Hours) Vital Signs Temp Pulse Pulse Resp BP Pulse Ox O2 Del Method 03/29/23 11:21 36.7 C 67 16 155/92 H 97 Room Air 03/29/23 07:22 36.4 C L 70 16 134/83 96 Room Air 03/29/23 07:22 71 03/29/23 03:00 36.6 C 69 16 122/62 96 Room Air Results BMP Results: Sodium 140 mmol/L (136-145) 03/29/23 Potassium 3.7 mmol/L (3.5-5.1) 03/29/23 Chloride 102 mmol/L (98-107) 03/29/23 Carbon Dioxide 29 mmol/L (21-32) 03/29/23 Anion Gap 9 (3-11) 03/29/23 BUN 15 mg/dl (6-23) 03/29/23 Creatinine 0.67 mg/dl (0.6-1.2) 03/29/23 Glucose 109 mg/dl (70-99(Fasting)) H 03/29/23 Results Complete Blood Count Results: RBC 4.77 M/uL (4.20-5.40) 03/29/23 WBC 4.04 K/ul (4.8-10.8) L 03/29/23 Hgb 13.9 g/dl (12.0-16.0) 03/29/23 Hct 40.7 % (37.0-47.0) 03/29/23 Plt Count 199 K/uL (130-400) 03/29/23 Updated Medication List Medication Instructions Recorded Confirmed Type lorazepam 2 mg tablet 2 mg PO HS anxiety 06/05/18 03/25/23 History multivitamin 1 tab PO QAM 10/20/20 03/25/23 History ondansetron HCl 4 mg tablet See Rx Instructions PO TID PRN 03/20/21 03/25/23 Rx Nausea #30 tabs losartan 100 mg tablet 100 mg PO QAM 08/27/22 03/25/23 History clotrimazole 1 % topical cream 1 applic topical BID PRN Other 02/11/23 03/25/23 History famotidine 20 mg tablet 20 mg PO PM 02/11/23 03/25/23 History gabapentin 250 mg/5 mL oral 500 mg PO .QAFTERNOON 02/11/23 03/25/23 History solution loratadine 5 mg/5 mL oral solution 5 mg PO DAILY Allergy Symptoms 02/11/23 03/25/23 History (Claritin) pantoprazole 40 mg tablet,delayed 40 mg PO QAM 02/11/23 03/25/23 History release silver sulfadiazine 1 % topical 1 applic topical DAILY PRN Other 02/11/23 03/25/23 History cream metoprolol succinate 25 mg 50 mg PO PM 02/25/23 03/25/23 History tablet,extended release 24 hr rimegepant 75 mg disintegrating 75 mg PO ONCE PRN Migraine Headache 02/25/23 03/25/23 History tablet (Nurtec ODT) acetaminophen 160 mg/5 mL oral 0 mg PO QID PRN Pain 03/25/23 03/25/23 History elixir lorazepam 1 mg tablet 1 mg PO QAM 03/25/23 03/25/23 History LAB Results Lipids: Cholesterol Level 191 mg/dl (0-200) 03/27/23 07:01 LDL Cholesterol, Calculated 112 mg/dl 03/27/23 07:01 HDL Cholesterol 64 mg/dl 03/27/23 07:01 Triglycerides Level 77 mg/dl (0-150) 03/27/23 07:01 A1C: Hemoglobin A1c 5.2 % (4.5-5.6) 04/08/19 09:52 (3) LVH (left ventricular hypertrophy) due to hypertensive disease Heart failure presence: without heart failure Qualified Code(s): I11.9 - Hypertensive heart disease without heart failure (4) Chest pain Chest pain type: unspecified Qualified Code(s): R07.9 - Chest pain, unspecified
[2023-03-29] MEDS: GABAPENTIN 250 MG/5 ML 470 ML BTL PO SCH (14:58)
--- NOTE | 2023-03-29 17:50 | Hospitalist Progress Note ---
Date of Service March 29, 2023 Assessment & Plan (1) Hypertensive urgency: Plan Patient is a 62-year-old female who has a significant past medical history of hypertension, migraine, chronic ulnar nerve palsy and currently disabled for such who presented to ED at the referral of cardiology due to resistant HTN. HTN Urgency Uncontrolled hypertension --Chest CTA: No thoracic aortic dissection. No pulmonary emboli. No consolidation to suggest pneumonia. Small pericardial effusion, similar to CT of April 08, 2019. --Head CT:No acute intracranial abnormality. --ECHO: Compared to prior study, no significant change. Moderate concentric LVH. EF 55 to 60%. Incidental small anterior pericardial effusion, grade 1 diastolic dysfunction. --Renal Artery Duplex: No sonographic evidence of renal artery stenosis. --Normal TSH --- Blood work for secondary hypertension pending --Normal lipid panel Appreciate cardiology input Continue losartan Started on Coreg, Aldactone Increased Coreg to 12.5 mg twice daily Monitor and adjust medications as needed Started on nitroglycerin BP better R/O ACS Abnormal stress test Lexiscan nuclear stress test done morning 03/28/2023 suggestive of apical ischemia versus artifact. Given ongoing chest heaviness, dyspnea on exertion plan for cardiac catheterization eventually continue nitroglycerin Plan for cardiac cath on Friday Headache Likely due to above H/O Migraines Follows Dr. Villalta --Head CT: No acute intracranial abnormality. Improved Chronic ulnar nerve palsy s/p multiple decompressions follows Dr. Suresh at [facility] ortho wears Limb restricting bracelet b/c of this; however spoke with staff at [place] who states this is not indicated and she can have IV access Chronic Dysphagia follows GI Needs pills crushed or with yogurt Continue PPI, Pepcid DVT Px: Lovenox SQ Code Status Full Code Admission and Anticipated Discharge Date Admission Date: March 25, 2023 Subjective Patient is seen and examined at bedside States feeling better today No chest pain No new complaints Reported headache overnight which she attributes to nitroglycerin Headache resolved Plan for cardiac cath on Friday Review of Systems Review of Systems: All systems reviewed & are unremarkable except as noted in Subjective Physical Exam Physical Exam: Physical Exam: Vitals signs as noted above General Appearance:Thin, no apparent distress Head: normocephalic, Atraumatic Eyes: normal inspection, EOMI Neck: supple, Trachea midline Respiratory/Chest: Normal breath sounds, CTA, No accessory muscle use Cardiovascular: S1, S2, No murmur Abdomen/GI:Soft, Non tender, Bowel sounds present Extremities/Musculoskeletal:normal inspection, no edema Neurologic/Psych:AAOX3, grossly no focal neurological deficits Skin: normal color, warm Results & Data Results & Data Vital Signs (Past 12 Hours) Vital Signs Temp Pulse Pulse Resp BP Pulse Ox Pulse Ox 03/29/23 17:00 96 03/29/23 15:23 73 03/29/23 14:55 36.7 C 73 18 125/79 96 03/29/23 11:21 36.7 C 67 16 155/92 H 97 03/29/23 07:22 36.4 C L 70 16 134/83 96 03/29/23 07:22 71 O2 Del Method O2 Del Method 03/29/23 17:00 Room Air 03/29/23 15:23 03/29/23 14:55 Room Air 03/29/23 11:21 Room Air 03/29/23 07:22 Room Air 03/29/23 07:22 Laboratory Results Short CBC 03/29/23 Range/Units 06:37 WBC 4.04 L (4.8-10.8) K/ul Hgb 13.9 (12.0-16.0) g/dl Hct 40.7 (37.0-47.0) % Plt Count 199 (130-400) K/uL BMP 03/29/23 06:37 Sodium 140 Potassium 3.7 Chloride 102 Carbon Dioxide 29 BUN 15 Creatinine 0.67 Glucose 109 H Calcium 10.0
[2023-03-29] MEDS: FAMOTIDINE 20 MG TAB PO SCH (20:42)
[2023-03-30] MEDS: NITROGLYCERIN 2% OINTMENT 30GM TUBE EXT SCH ×4 (01:58→17:40)
[2023-03-30 06:11] LABS: Hematocrit (blood only) 40.8 % (37.0-47.0); Hemoglobin 14.1 g/dl (12.0-16.0); Mean Corpuscular Hemoglobin 29.2 pg (25.0-34.0); Mean Corpuscular Hgb Conc 34.6 g/dL (32.0-36.0); Mean Corpuscular Volume 84.5 fL (80.0-100.0); Mean Platelet Volume 9.9 fL (9.4-12.4); Platelet Count 205 K/uL (130-400); RDW Coefficient of Variation 13.3 % (11.5-14.5); Red Blood Count 4.83 M/uL (4.20-5.40); White Blood Count 4.25 K/ul (4.8-10.8)
[2023-03-30] MEDS: LANSOPRAZOLE 30 MG SOLTAB PO SCH (07:40)
[2023-03-30] MEDS: carvediloL 12.5 MG TAB PO SCH ×2 (08:46→16:04)
[2023-03-30] MEDS: LORazepam 1 MG TAB PO SCH ×2 (08:46→21:32)
[2023-03-30] MEDS: FUROSEMIDE 20 MG TAB PO SCH (08:46)
[2023-03-30] MEDS: LORATADINE 1 MG/1 ML PO SCH (08:46)
[2023-03-30] MEDS: MULTI VIT W/MINERALS LIQUID 15 ML UDP PO SCH (08:46)
[2023-03-30] MEDS: POTASSIUM CHLORIDE PWD 20 MEQ PACK PO SCH (08:46)
[2023-03-30] MEDS: SPIRONOLACTONE 25 MG TAB PO SCH (08:46)
[2023-03-30] MEDS: ENOXAPARIN INJ 40 MG/0.4 ML SYR SQ SCH (08:47)
[2023-03-30] MEDS: LOSARTAN POTASSIUM 50 MG TAB PO SCH (08:47)
--- NOTE | 2023-03-30 11:00 | Cardiology Progress Note ---
Date of Service March 30, 2023 Assessment & Plan (1) Hypertensive urgency: (2) Uncontrolled hypertension: (3) LVH (left ventricular hypertrophy) due to hypertensive disease: (4) Chest pain: (5) Abnormal nuclear stress test: Plan 62 yo woman presenting with uncontrolled HTN * Presenting BP 220/100 * + Chest Pain * + ALMONTE * No AMBREEN * Chronically on Losartan 100 mg po per day + Toprol 50 mg po per day * No hx of SC * No hx of PVD * No hx of BECKY * No hx of Thyroid Disease * No hx of SEVEN * No hx of adrenal tumors/pathology * No Aortic Coarctation Dx: Hypertensive Emergency * Started on Labetalol * Started Clonidine * Lasix 20 PO x 1 * Nitropaste * Nuclear Stress Test with small apical reversible defect. Plans: * Continue Losartan 100 mg po per day * Continue Aldactone 25 mg po per day * LOPRESSOR (OFF) * Continue Coreg to 12.5 mg po BID * Chlorthalindone - significant diarrhea after taking chlorthalindone- will keep on lasix * Continue Lasix 20 mg po per day * K+ has been low despite being on Losartan - may be a clue to underlying adrenal challenge * Plans for outpt Endocrine Evaluation for Hyperadrenal State * Clonidine (OFF) * Continue Nitropaste as needed * May need Calcium Channel Farhan - Procardia XL * TSH - WNL * Renin/Kenney - pending * Catecholamine - pending * TOX negative * Troponin - WNL * LVEF 55-60%, moderate LVH, no major valve pathology, small anterior pericardial effusion. * Plan for coronary angiogram on Friday03/31/23. * NPO s/p midnight I provided 55 min of care to the patient, discussing management of CAD and angina. Admission and Anticipated Discharge Date Admission Date: March 25, 2023 Subjective Patient is seen and examined at bedside States feeling better today Had some chest pain this AM prior to nitropatch change Now resolved Plan for cardiac cath on Friday Review of Systems Review of Systems: Complete review of systems is otherwise as stated above, negative, noncontributory. Physical Exam Physical Exam: thin woman in NAD No thyromegaly No elevation in JVP S1S2S4 No coarctation murmur CTA B No abdominal or RP bruits No abdominal masses appreciated No c/c/e - warm and perfusing Constitutional: well nourished; no acute distress Respiratory: normal respiratory effort; no respiratory distress, no labored breathing and no retractions Cardiovascular: Rate/Rhythm: regular rate and regular rhythm Heart Sounds: normal S1 and normal S2; no murmur Vessels: no JVD and no carotid bruit Extremities: no edema Gastrointestinal (Abdomen): Inspection/Auscultation: normal bowel sounds; abdomen not distended and no abdominal edema Percussion/Palpation: abdomen soft; abdomen nontender, no guarding and abdomen not rigid Neurologic: CN's II-XI intact bilaterally Psychiatric: A+Ox3, euthymic affect Results & Data Vital Signs (Past 12 Hours) Vital Signs Temp Pulse Pulse Resp BP Pulse Ox O2 Del Method 03/30/23 08:00 Room Air 03/30/23 07:05 36.6 C 71 18 137/83 98 Room Air 03/30/23 03:00 36.2 C L 67 14 130/74 96 Room Air 03/30/23 00:18 69 03/29/23 23:00 36.3 C L 68 18 120/72 93 Room Air (3) LVH (left ventricular hypertrophy) due to hypertensive disease Heart failure presence: without heart failure Qualified Code(s): I11.9 - Hypertensive heart disease without heart failure (4) Chest pain Chest pain type: unspecified Qualified Code(s): R07.9 - Chest pain, unspecified
[2023-03-30] MEDS: GABAPENTIN 250 MG/5 ML 470 ML BTL PO SCH (14:14)
--- NOTE | 2023-03-30 17:04 | Hospitalist Progress Note ---
Date of Service March 30, 2023 Assessment & Plan (1) Hypertensive urgency: Plan Patient is a 62-year-old female who has a significant past medical history of hypertension, migraine, chronic ulnar nerve palsy and currently disabled for such who presented to ED at the referral of cardiology due to resistant HTN. HTN Urgency Uncontrolled hypertension --Chest CTA: No thoracic aortic dissection. No pulmonary emboli. No consolidation to suggest pneumonia. Small pericardial effusion, similar to CT of April 08, 2019. --Head CT:No acute intracranial abnormality. --ECHO: Compared to prior study, no significant change. Moderate concentric LVH. EF 55 to 60%. Incidental small anterior pericardial effusion, grade 1 diastolic dysfunction. --Renal Artery Duplex: No sonographic evidence of renal artery stenosis. --Normal TSH --- Blood work for secondary hypertension pending --Normal lipid panel Appreciate cardiology input Continue losartan Started on Coreg, Aldactone Increased Coreg to 12.5 mg twice daily Monitor and adjust medications as needed Continue nitroglycerin Plan for cardiac cath tomorrow N.p.o. after midnight R/O ACS Abnormal stress test Lexiscan nuclear stress test done morning 03/28/2023 suggestive of apical ische julia versus artifact. Given ongoing chest heaviness, dyspnea on exertion plan for cardiac catheterization eventually continue nitroglycerin for now Further management based on cath results Headache Likely due to above H/O Migraines Follows Dr. Villalta --Head CT: No acute intracranial abnormality. Resolved Chronic ulnar nerve palsy s/p multiple decompressions follows Dr. Suresh at [facility] ortho wears Limb restricting bracelet b/c of this; however spoke with staff at [place] who states this is not indicated and she can have IV access Chronic Dysphagia follows GI Needs pills crushed or with yogurt Continue PPI, Pepcid DVT Px: Lovenox SQ Code Status Full Code Admission and Anticipated Discharge Date Admission Date: March 25, 2023 Subjective Patient is seen and examined at bedside No new complaints Reports having some chest pressure this morning which later resolved Plan for cardiac catheterization tomorrow Headache resolved Review of Systems Review of Systems: All systems reviewed & are unremarkable except as noted in Subjective Physical Exam Physical Exam: Physical Exam: Vitals signs as noted above General Appearance:Thin, no apparent distress Head: normocephalic, Atraumatic Eyes: normal inspection, EOMI Neck: supple, Trachea midline Respiratory/Chest: Normal breath sounds, CTA, No accessory muscle use Cardiovascular: S1, S2, No murmur Abdomen/GI:Soft, Non tender, Bowel sounds present Extremities/Musculoskeletal:normal inspection, no edema Neurologic/Psych:AAOX3, grossly no focal neurological deficits Skin: normal color, warm Results & Data Results & Data Vital Signs (Past 12 Hours) Vital Signs Temp Pulse Resp BP Pulse Ox O2 Del Method 03/30/23 14:55 36.8 C 75 18 126/73 97 Room Air 03/30/23 11:22 36.6 C 62 18 138/72 95 Room Air 03/30/23 08:00 Room Air 03/30/23 07:05 36.6 C 71 18 137/83 98 Room Air Laboratory Results Short CBC 03/30/23 Range/Units 05:42 WBC 4.25 L (4.8-10.8) K/ul Hgb 14.1 (12.0-16.0) g/dl Hct 40.8 (37.0-47.0) % Plt Count 205 (130-400) K/uL
[2023-03-30] MEDS: FAMOTIDINE 20 MG TAB PO SCH (21:32)
[2023-03-31] MEDS: NITROGLYCERIN 2% OINTMENT 30GM TUBE EXT SCH ×3 (01:33→11:23)
[2023-03-31 07:31] LABS: Hematocrit (blood only) 41.3 % (37.0-47.0); Hemoglobin 14.4 g/dl (12.0-16.0); Mean Corpuscular Hemoglobin 29.1 pg (25.0-34.0); Mean Corpuscular Hgb Conc 34.9 g/dL (32.0-36.0); Mean Corpuscular Volume 83.6 fL (80.0-100.0); Mean Platelet Volume 9.9 fL (9.4-12.4); Platelet Count 205 K/uL (130-400); RDW Coefficient of Variation 13.4 % (11.5-14.5); RDW Standard Deviation 40.9 fL (36.4-46.3); Red Blood Count 4.94 M/uL (4.20-5.40); White Blood Count 3.59 K/ul (4.8-10.8)
[2023-03-31] MEDS: POTASSIUM CHLORIDE PWD 20 MEQ PACK PO SCH (07:44)
[2023-03-31] MEDS: MULTI VIT W/MINERALS LIQUID 15 ML UDP PO SCH (07:44)
[2023-03-31 08:17] LABS: Calcium 9.6 mg/dl (8.6-10.3); Potassium 4.1 mmol/L (3.5-5.1)
[2023-03-31 08:23] LABS: BUN Creatinine Ratio 24.6 (10-20); Creatinine Clr Calc Pharmacy 70.1 ml/min; Est GFR (African American) 106.6 ml/min
[2023-03-31] MEDS: ENOXAPARIN INJ 40 MG/0.4 ML SYR SQ SCH (08:53)
[2023-03-31] MEDS: carvediloL 12.5 MG TAB PO SCH ×2 (08:53→16:35)
[2023-03-31] MEDS: FUROSEMIDE 20 MG TAB PO SCH (08:55)
[2023-03-31] MEDS: LANSOPRAZOLE 30 MG SOLTAB PO SCH (08:55)
[2023-03-31] MEDS: SPIRONOLACTONE 25 MG TAB PO SCH (08:56)
[2023-03-31] MEDS: LORATADINE 1 MG/1 ML PO SCH (08:56)
[2023-03-31] MEDS: LOSARTAN POTASSIUM 50 MG TAB PO SCH (08:56)
[2023-03-31] MEDS: LORazepam 1 MG TAB PO SCH ×2 (08:58→22:05)
--- NOTE | 2023-03-31 14:35 | Cardiology Progress Note ---
Date of Service March 31, 2023 Assessment & Plan (1) Hypertensive urgency: (2) Uncontrolled hypertension: (3) LVH (left ventricular hypertrophy) due to hypertensive disease: (4) Chest pain: (5) Abnormal nuclear stress test: Plan - Renal artery duplex was negative for renal artery stenosis. CT angiogram revealed normal caliber of the aortic arch and descending aorta without coarctation. -After blood pressure was better controlled, patient underwent pharmacologic nuclear stress test on 03/28/2023 with apical ischemia. Significant chest discomfort induced with Lexiscan. -Discontinue topical nitroglycerin. -Patient had been n.p.o. today for invasive coronary angiography, however due to scheduling constraints, we will advance her diet, and plan for cardiac catheterization tomorrow. -With regards to her treatment of hypertension, continue losartan 100 mg daily, furosemide 20 mg by mouth daily, potassium 20 mill equivalents daily, spironolactone 25 mg daily, carvedilol 12.5 mg twice daily, lorazepam. Admission and Anticipated Discharge Date Admission Date: March 25, 2023 Subjective Patient seen in cardiology follow-up. Feeling improved. Blood pressure remains controlled. Physical Exam Constitutional: well nourished; no acute distress Respiratory: normal respiratory effort; no respiratory distress, no labored breathing and no retractions Cardiovascular: Rate/Rhythm: regular rate and regular rhythm Heart Sounds: normal S1 and normal S2; no murmur Vessels: no JVD and no carotid bruit Ex tremities: no edema Gastrointestinal (Abdomen): Inspection/Auscultation: normal bowel sounds; abdomen not distended and no abdominal edema Percussion/Palpation: abdomen soft; abdomen nontender, no guarding and abdomen not rigid Results & Data Vital Signs (Past 12 Hours) Vital Signs Temp Pulse Pulse Resp BP Pulse Ox O2 Del Method 03/31/23 11:50 36.6 C 67 18 125/84 97 Room Air 03/31/23 09:21 71 03/31/23 09:17 Room Air 03/31/23 07:08 36.6 C 72 18 132/81 99 Room Air 03/31/23 03:00 36.2 C L 61 14 100/53 L 96 Room Air (3) LVH (left ventricular hypertrophy) due to hypertensive disease Heart failure presence: without heart failure Qualified Code(s): I11.9 - Hypertensive heart disease without heart failure (4) Chest pain Chest pain type: unspecified Qualified Code(s): R07.9 - Chest pain, unspecified
[2023-03-31] MEDS: GABAPENTIN 250 MG/5 ML 470 ML BTL PO SCH (15:07)
--- NOTE | 2023-03-31 16:27 | Hospitalist Progress Note ---
Date of Service March 31, 2023 Assessment & Plan (1) Hypertensive urgency: Plan Patient is a 62-year-old female who has a significant past medical history of hypertension, migraine, chronic ulnar nerve palsy and currently disabled for such who presented to ED at the referral of cardiology due to resistant HTN. HTN Urgency Uncontrolled hypertension --Chest CTA: No thoracic aortic dissection. No pulmonary emboli. No consolidation to suggest pneumonia. Small pericardial effusion, similar to CT of April 08, 2019. --Head CT:No acute intracranial abnormality. --ECHO: Compared to prior study, no significant change. Moderate concentric LVH. EF 55 to 60%. Incidental small anterior pericardial effusion, grade 1 diastolic dysfunction. --Renal Artery Duplex: No sonographic evidence of renal artery stenosis. --Normal TSH --- Blood work for secondary hypertension pending --Normal lipid panel Appreciate cardiology input Continue losartan Started on Coreg, Aldactone Increased Coreg to 12.5 mg twice daily Monitor and adjust medications as needed Continue nitroglycerin Due to scheduling issues, cardiac catheterization deferred for tomorrow N.p.o. after midnight Continue current management R/O ACS Abnormal stress test Lexiscan nuclear stress test done morning 03/28/2023 suggestive of apical ischemia versus artifact. Given ongoing chest heaviness, dyspnea on exertion plan for cardiac catheterization eventually continue nitroglycerin for now Further management based on cath results Headache Likely due to above H/O Migraines Follows Dr. Villalta --Head CT: No acute intracranial abnormality. Resolved Chronic ulnar nerve palsy s/p multiple decompressions follows Dr. Suresh at [facility] ortho wears Limb restricting bracelet b/c of this; however spoke with staff at [place] who states this is not indicated and she can have IV access Chronic Dysphagia follows GI Needs pills crushed or with yogurt Continue PPI, Pepcid DVT Px: Lovenox SQ Code Status Full Code Admission and Anticipated Discharge Date Admission Date: March 25, 2023 Subjective Patient is seen and examined at bedside Still having some chest discomfort with exertion per patient Also reports right sided shoulder blade discomfort this morning No other complaints Review of Systems Review of Systems: All systems reviewed & are unremarkable except as noted in Subjective Physical Exam Physical Exam: Physical Exam: Vitals signs as noted above General Appearance:Thin, no apparent distress Head: normocephalic, Atraumatic Eyes: normal inspection, EOMI Neck: supple, Trachea midline Respiratory/Chest: Normal breath sounds, CTA, No accessory muscle use Cardiovascular: S1, S2, No murmur Abdomen/GI:Soft, Non tender, Bowel sounds present Extremities/Musculoskeletal:normal inspection, no edema Neurologic/Psych:AAOX3, grossly no focal neurological deficits Skin: normal color, warm Results & Data Results & Data Vital Signs (Past 12 Hours) Vital Signs Temp Pulse Pulse Resp BP Pulse Ox O2 Del Method 03/31/23 16:08 36.7 C 81 18 144/70 H 96 Room Air 03/31/23 15:18 80 03/31/23 11:50 36.6 C 67 18 125/84 97 Room Air 03/31/23 09:21 71 03/31/23 09:17 Room Air 03/31/23 07:08 36.6 C 72 18 132/81 99 Room Air Laboratory Results Short CBC 03/31/23 Range/Units 07:02 WBC 3.59 L (4.8-10.8) K/ul Hgb 14.4 (12.0-16.0) g/dl Hct 41.3 (37.0-47.0) % Plt Count 205 (130-400) K/uL BMP 03/31/23 07:02 Sodium 139 Potassium 4.1 Chloride 103 Carbon Dioxide 30 BUN 17 Creatinine 0.69 Glucose 111 H Calcium 9.6
[2023-03-31] MEDS: FAMOTIDINE 20 MG TAB PO SCH (22:05)
[2023-04-01] MEDS ORDERED: HEPARIN (PORCINE) 1000 UNIT/ML 10 ML (CATH LAB USE ONLY) ONE (07:00)
[2023-04-01] MEDS ORDERED: niCARdipine HCL INJ 2.5 MG/ML 10 ML AMP ONE (07:00)
[2023-04-01 07:01] LABS: Hematocrit (blood only) 41.9 % (37.0-47.0); Hemoglobin 14.6 g/dl (12.0-16.0); Mean Corpuscular Hemoglobin 29.4 pg (25.0-34.0); Mean Corpuscular Hgb Conc 34.8 g/dL (32.0-36.0); Mean Corpuscular Volume 84.3 fL (80.0-100.0); Mean Platelet Volume 10.1 fL (9.4-12.4); Platelet Count 228 K/uL (130-400); RDW Coefficient of Variation 13.3 % (11.5-14.5); RDW Standard Deviation 40.9 fL (36.4-46.3); Red Blood Count 4.97 M/uL (4.20-5.40); White Blood Count 4.49 K/ul (4.8-10.8)
[2023-04-01] MEDS ORDERED: MIDAZOLAM HCL 1 MG/ML 2ML VIAL ONE (07:01)
[2023-04-01] MEDS ORDERED: NITROGLYCERIN/D5W 100MCG/ML 20ML SYR ONE (07:01)
[2023-04-01] MEDS ORDERED: fentaNYL citrate PF 100 MCG/2 ML VIAL ONE (07:01)
--- NOTE | 2023-04-01 07:58 | Pre Anesthesia Assessment ---
Date of Service April 01, 2023 Pre Sedation Assessment Vital Signs Temp Pulse Pulse Pulse Resp BP Pulse Ox 04/01/23 07:07 98.2 F 78 77 18 168/94 H 99 04/01/23 03:01 97.7 F 63 12 110/65 98 03/31/23 22:54 97.7 F 66 14 115/76 98 03/31/23 19:22 97.7 F 74 15 110/71 97 03/31/23 17:00 03/31/23 16:08 98.1 F 81 18 144/70 H 96 03/31/23 15:18 80 03/31/23 11:50 97.9 F 67 18 125/84 97 03/31/23 09:21 71 03/31/23 09:17 O2 Del Method O2 Del Method 04/01/23 07:07 Room Air 04/01/23 03:01 Room Air 03/31/23 22:54 Room Air 03/31/23 19:22 Room Air 03/31/23 17:00 Room Air 03/31/23 16:08 Room Air 03/31/23 15:18 03/31/23 11:50 Room Air 03/31/23 09:21 03/31/23 09:17 Room Air Cardiovascular + regular rate Respiratory normal respiratory effort, lungs clear to auscultation Pre-Sedation Airway Assessment Smoking Status: Never smoker Hx Sleep Apnea: No Hx Difficult Intubation: No Short, Thick Neck: No Thyromental Distance: > or= 3.5 Finger Breadths Oral Cavity: + Chipped Teeth Mallampati Class: II ASA: ASA2 Procedure Planning Contraindications for Sedation: none Current Medications Reviewed: Yes Notes The planned sedation has been discussed with the patient. Informed Consent was obtained. I have identified the patient, determined the appropriateness of sedation and have assessed the patient immediately prior to the procedure. All medicine(s) and interventions are by my order.
[2023-04-01 08:06] LABS: Calcium 9.8 mg/dl (8.6-10.3); Potassium 4.1 mmol/L (3.5-5.1)
[2023-04-01 08:11] LABS: Creatinine Clr Calc Pharmacy 77.8 ml/min; Est GFR (Non-African American) 95.8 ml/min
--- NOTE | 2023-04-01 08:24 | Post Anesthesia Assessment ---
Date of Service April 01, 2023 Post Sedation Assessment Vital Signs Temp Pulse Pulse Pulse Resp BP Pulse Ox 04/01/23 07:07 98.2 F 78 77 18 168/94 H 99 04/01/23 03:01 97.7 F 63 12 110/65 98 03/31/23 22:54 97.7 F 66 14 115/76 98 03/31/23 19:22 97.7 F 74 15 110/71 97 03/31/23 17:00 03/31/23 16:08 98.1 F 81 18 144/70 H 96 03/31/23 15:18 80 03/31/23 11:50 97.9 F 67 18 125/84 97 03/31/23 09:21 71 03/31/23 09:17 O2 Del Method O2 Del Method 04/01/23 07:07 Room Air 04/01/23 03:01 Room Air 03/31/23 22:54 Room Air 03/31/23 19:22 Room Air 03/31/23 17:00 Room Air 03/31/23 16:08 Room Air 03/31/23 15:18 03/31/23 11:50 Room Air 03/31/23 09:21 03/31/23 09:17 Room Air Recovery Score Activity: Moves 4 extremities Respiration: Deep Breath/Cough Circulation: +/-20% PreAnes Value Consciousness: Fully Awake Oxygen Saturation: O2 needed for >90% Discharge Sedation Level of Care: Fast Track Phase II Post Sedation Plan On clinical assessment, the patient appears to have tolerated the sedation without complications. Patient is recovering as anticipated. Patient will continue to be monitored by nursing and may be discharged when sedation discharge criteria are met per below protocol. Upon Completions of procedure up to 15 minutes continue every 5 minute vital sig ns and the P.A.R. score; then discharge to a Phase I or Fast Track to Phase II per the following guidelines: * Discharge Patient to appropriate Phase II area if PAR is 8 or greater or return to pre- procedure baseline. The post - procedure orders will be as directed. * If PAR score is less than 8 or not return to pre-procedure baseline then patient will follow Phase I monitoring till PAR is reached for Phase II. The Phase I may be done in procedure room or may call to secure a Phase I area. * If naloxone or flumazenil are used for reversal, hold in Phase I for continued monitoring from when last reversal dose was given for a minimum of 60 minutes or longer pending the nurse and/or physician discretion of patient condition before discharge to Phase II. Please call the Sedation Physician to re-evaluate and complete post-note for discharge to Phase II area. Do NOT discharge from procedure sedation or Phase 1 until post- sedation evaluation note is complete by procedure /sedation MD Sedation Discharge Instructions to be given to the patient at discharge to home.
--- NOTE | 2023-04-01 08:27 | Cardiac Catheterization ---
[facility] Data: [employer] Cardiac Status Clinical evaluation leading to the procedure CAD Presenation: Positive Stress Test Diagnostic Physicians Name: Claudio Wells MD Closure Device Recommendations: Medical Therapy and/or Counseling Cardiac Cath Procedure Full Procedure Date April 01, 2023 Pre-Procedure Diagnosis Pre-Procedure Diagnosis: Angina and Positive Stress Test AUC Score AUC Score: 7 Post-Procedure Diagnosis Post-Procedure Diagnosis: Normal Intracardiac Pressures Procedure(s) Performed Procedure(s) Performed: Coronary Angiography and Left Heart Cath Car Lubricator Claudio Wells MD Cigarette Roller(s) [place] Estimated Blood Loss Estimated Blood Loss: 5 Medication(s) Medication(s): Fentanyl, Heparin, Lidocaine 1%, Nicardipine, Nitroglycerin and Versed Summary of Findings Indication: Abnormal stress test, chest pain Access: 6 Fr right radial artery Catheters: [place] Findings: LM -normal caliber, angiographically normal LAD -medium caliber, proximal luminal regularities, remainder of vessel without significant disease and wraps around apex. Medium D1 without significant disease. Circumflex -medium caliber, gives off large OM1. No significant disease. RCA -dominant, medium caliber, angiographically normal LVEDP -7 Arterial Closure: TR band Summary: 1. Angiographically normal coronary arteries 2. Normal intracardiac filling pressure Recommendations: No high-risk or severe coronary artery disease identified. Stress test represents false positive. Recommend continued ASCVD risk factor modification Hemodynamics Rest Ao:: 145/83/114 Final Ao: 138/67/96 LV: 141/7 Recommendations Recommendations: Medical Therapy and/or Counseling Specimens Specimens: None Radiation Exposure (mGy) 160 Contrast (mls) 25 Anesthesia Moderate 2009-1790 Procedural Complication(s) None Disposition PCU I attest to the content of the Intraoperative Record and any orders documented therein. Any exceptions are noted below. [facility] Card Cath Procedure Codes Cardiac Catheterization Procedure 1: Cardiovascular Cath Procedures: 99104 Coronaries and LHC (+/-LV) Moderate Sedation Procedure 1: Sedation/Anesthesia: 13712 Mod Sedation by the same physician;Init15 Min Child Age 5 & Up PG Care Time/CCT Total # of Minutes Spent Total Time Spent with Patient: Total time spent is greater than 50% in coordination of care (as documented) at patient's floor/unit and/or counseling patient:
--- NOTE | 2023-04-01 08:50 | Cardiology Progress Note ---
Date of Service April 01, 2023 Assessment & Plan (1) Hypertensive urgency: (2) Chest pain: Plan -Patient with intermittent chest pain initially reported in the setting of uncontrolled hypertension however after BP improved had abnormal nuclear stress with apical perfusion defect and severe chest pain with administration of lexiscan. -Coronary angiography performed 04/01/23 revealed normal coronaries with normal filling pressures. Certainly suggests that there is a component of anxiety related to her chest pain as she had recurrent symptoms immediately before the procedure this am. * K+ had been low despite being on Losartan - may be a clue to underlying adrenal challenge * Consider outpt Endocrine Evaluation for Hyperadrenal State * Clonidine (OFF) * Nitropaste discontinued * TSH - WNL * Renin/Kenney - pending * Catecholamine - pending * TOX negative * Troponin - WNL * LVEF 55-60%, moderate LVH, no major valve pathology, small anterior pericardial effusion. * Continue losartan 100 mg, furosemide 20 PO daily, Potassium chloride 20 meq daily, spironolactone 25 mg daily, coreg 12.5 mg BID. * If completes post cath recovery , could potentially be discharged his afternoon, however pt states she is concerned she does not have transportation until 04/02/23. * DVT prophylaxis: Lovenox 40 mg SQ daily Admission and Anticipated Discharge Date Admission Date: March 25, 2023 Subjective Patient seen in follow up in the cardiac catheterization recovery area s/p coronary angiography this am. She feels well. Had recurrent chest discomfort earlier this am. Coronaries are normal. Physical Exam Constitutional: well nourished; no acute distress Respiratory: normal respiratory effort; no respiratory distress, no labored breathing and no retractions Cardiovascular: Rate/Rhythm: regular rate and regular rhythm Heart Sounds: normal S1 and normal S2; no murmur Vessels: no JVD and no carotid bruit Extremities: no edema Gastrointestinal (Abdomen): Inspection/Auscultation: normal bowel sounds; abdomen not distended and no abdominal edema Percussion/Palpation: abdomen soft; abdomen nontender, no guarding and abdomen not rigid Results & Data Vital Signs (Past 12 Hours) Vital Signs Temp Pulse Pulse Pulse Resp BP Pulse Ox 04/01/23 08:32 68 18 116/77 95 04/01/23 08:27 75 04/01/23 08:21 65 18 149/77 H 92 04/01/23 07:07 36.8 C 78 77 18 168/94 H 99 04/01/23 03:01 36.5 C 63 12 110/65 98 03/31/23 22:54 36.5 C 66 14 115/76 98 O2 Del Method 04/01/23 08:32 Room Air 04/01/23 08:27 04/01/23 08:21 Room Air 04/01/23 07:07 Room Air 04/01/23 03:01 Room Air 03/31/23 22:54 Room Air Laboratory Results CBC 04/01/23 Range/Units 06:12 WBC 4.49 L (4.8-10.8) K/ul RBC 4.97 (4.20-5.40) M/uL Hgb 14.6 (12.0-16.0) g/dl Hct 41.9 (37.0-47.0) % Plt Count 228 (130-400) K/uL Comprehensive Metabolic Panel 04/01/23 Range/Units 06:12 Sodium 140 (136-145) mmol/L Potassium 4.1 (3.5-5.1) mmol/L Chloride 104 (98-107) mmol/L Carbon Dioxide 30 (21-32) mmol/L BUN 14 (6-23) mg/dl Creatinine 0.61 (0.6-1.2) mg/dl Glucose 102 H (70-99(Fasting)) mg/dl Calcium 9.8 (8.6-10.3) mg/dl Intake and Output 03/31/23 04/01/23 04/01/23 22:59 06:59 14:59 Other: # Unmeasured Voids 3 Weight 52.9 kg Weight Measurement Method Built in [facility] (2) Chest pain Chest pain type: unspecified Qualified Code(s): R07.9 - Chest pain, unspecified
[2023-04-01] MEDS: SPIRONOLACTONE 25 MG TAB PO SCH (08:55)
[2023-04-01] MEDS: FUROSEMIDE 20 MG TAB PO SCH (08:55)
[2023-04-01] MEDS: LORazepam 1 MG TAB PO SCH ×2 (08:55→22:04)
[2023-04-01] MEDS: POTASSIUM CHLORIDE PWD 20 MEQ PACK PO SCH (08:55)
[2023-04-01] MEDS: LANSOPRAZOLE 30 MG SOLTAB PO SCH (08:55)
[2023-04-01] MEDS: carvediloL 12.5 MG TAB PO SCH ×2 (08:56→17:02)
[2023-04-01] MEDS: LOSARTAN POTASSIUM 50 MG TAB PO SCH (08:56)
[2023-04-01] MEDS: ENOXAPARIN INJ 40 MG/0.4 ML SYR SQ SCH (08:56)
[2023-04-01] MEDS: LORATADINE 1 MG/1 ML PO SCH (08:57)
[2023-04-01] MEDS: MULTI VIT W/MINERALS LIQUID 15 ML UDP PO SCH (08:57)
[2023-04-01] MEDS: GABAPENTIN 250 MG/5 ML 470 ML BTL PO SCH (13:55)
--- NOTE | 2023-04-01 15:28 | Hospitalist Progress Note ---
Date of Service April 01, 2023 Assessment & Plan (1) Hypertensive urgency: Plan Patient is a 62-year-old female who has a significant past medical history of hypertension, migraine, chronic ulnar nerve palsy and currently disabled for such who presented to ED at the referral of cardiology due to resistant HTN. HTN Urgency Uncontrolled hypertension --Chest CTA: No thoracic aortic dissection. No pulmonary emboli. No consolidation to suggest pneumonia. Small pericardial effusion, similar to CT of April 08, 2019. --Head CT:No acute intracranial abnormality. --ECHO: Compared to prior study, no significant change. Moderate concentric LVH. EF 55 to 60%. Incidental small anterior pericardial effusion, grade 1 diastolic dysfunction. --Renal Artery Duplex: No sonographic evidence of renal artery stenosis. --Normal TSH --- Blood work for secondary hypertension pending --Normal lipid panel Cardiac cath done on April 01, 2023 shows angiographically normal coronary arteries. Currently on losartan 100 mg once a day, Lasix 20 mg once a day, Coreg 12.5 mg twice a day and spironolactone 25 mg once a day. Monitor and adjust medications as needed R/O ACS Abnormal stress test Lexiscan nuclear stress test done morning 03/28/2023 suggestive of apical ischemia versus artifact. Given ongoing chest heaviness, dyspnea on exertion plan for cardiac catheterization eventually continue nitroglycerin for now Further management based on cath results Cardiac cath done on April 01, 2023 shows angiographically normal coronary arteries. Headache Likely due to above H/O Migraines Follows Dr. Villalta --Head CT: No acute intracranial abnormality. Resolved Chronic ulnar nerve palsy s/p multiple decompressions follows Dr. Suresh at [facility] ortho wears Limb restricting bracelet b/c of this; however spoke with staff at [facility] who states this is not indicated and she can have IV access Chronic Dysphagia follows GI Needs pills crushed or with yogurt Continue PPI, Pepcid DVT Px: Lovenox SQ Code Status Full Code Please note the above document was generated using voice recognition software. It may contain grammatical, syntax or spelling errors. Any formal questions or concerns about the content, text or information contained within the body of this dictation should be directly addressed to the provider for clarification Admission and Anticipated Discharge Date Admission Date: March 25, 2023 Subjective Patient seen and examined at bedside. She reports that she is feeling well; no chest pain presently. She had cardiac cath today. Review of Systems Review of Systems: All systems reviewed & are unremarkable except as noted in Subjective Physical Exam Physical Exam: Physical Exam: Vitals signs as noted above General Appearance:Thin, no apparent distress Head: normocephalic, Atraumatic Eyes: normal inspection, EOMI Neck: supple, Trachea midline Respiratory/Chest: Normal breath sounds, CTA, No accessory muscle use Cardiovascular: S1, S2, No murmur Abdomen/GI:Soft, Non tender, Bowel sounds present Extremities/Musculoskeletal:normal inspection, no edema Neurologic/Psych:AAOX3, grossly no focal neurological deficits Skin: normal color, warm Results & Data Results & Data Vital Signs (Past 12 Hours) Vital Signs Temp Pulse Pulse Pulse Resp BP Pulse Ox 04/01/23 15:13 69 04/01/23 13:30 71 16 116/72 95 04/01/23 12:30 70 122/80 98 04/01/23 11:30 68 16 128/83 99 04/01/23 10:30 67 16 110/75 99 04/01/23 10:00 67 110/70 92 04/01/23 09:45 68 16 116/74 93 04/01/23 09:30 95 H 16 127/80 95 04/01/23 09:15 75 16 129/78 95 04/01/23 09:00 36.7 C 67 67 131/78 94 04/01/23 08:32 68 18 116/77 95 04/01/23 08:27 75 04/01/23 08:21 65 18 149/77 H 92 04/01/23 07:07 36.8 C 78 77 18 168/94 H 99 O2 Del Method 04/01/23 15:13 04/01/23 13:30 Room Air 04/01/23 12:30 Room Air 04/01/23 11:30 04/01/23 10:30 Room Air 04/01/23 10:00 Room Air 04/01/23 09:45 Room Air 04/01/23 09:30 Room Air 04/01/23 09:15 Room Air 04/01/23 09:00 Room Air 04/01/23 08:32 Room Air 04/01/23 08:27 04/01/23 08:21 Room Air 04/01/23 07:07 Room Air Laboratory Results Laboratory Results WBC 4.49 K/ul (4.8-10.8) L 04/01/23 06:12 RBC 4.97 M/uL (4.20-5.40) 04/01/23 06:12 Hgb 14.6 g/dl (12.0-16.0) 04/01/23 06:12 Hct 41.9 % (37.0-47.0) 04/01/23 06:12 MCV 84.3 fL (80.0-100.0) 04/01/23 06:12 MCH 29.4 pg (25.0-34.0) 04/01/23 06:12 MCHC 34.8 g/dL (32.0-36.0) 04/01/23 06:12 RDW Std Deviation 40.9 fL (36.4-46.3) 04/01/23 06:12 RDW Coeff of Terra 13.3 % (11.5-14.5) 04/01/23 06:12 Plt Count 228 K/uL (130-400) 04/01/23 06:12 MPV 10.1 fL (9.4-12.4) 04/01/23 06:12 Immature Gran % (Auto) 0.2 % 03/26/23 05:47 Neut % (Auto) 68.2 % 03/26/23 05:47 Lymph % (Auto) 20.9 % 03/26/23 05:47 [place] % (Auto) 9.1 % 03/26/23 05:47 Eos % (Auto) 1.1 % 03/26/23 05:47 Baso % (Auto) 0.5 % 03/26/23 05:47 Neut # (Auto) 3.75 K/uL (1.40-6.50) 03/26/23 05:47 Lymph # (Auto) 1.15 K/uL (1.20-3.40) L 03/26/23 05:47 [place] # (Auto) 0.50 K/uL (0.11-0.59) 03/26/23 05:47 Eos # (Auto) 0.06 K/uL (0.00-0.50) 03/26/23 05:47 Baso # (Auto) 0.03 K/uL (0.00-0.20) 03/26/23 05:47 Immature Gran # (Auto) 0.01 K/uL (0.01-0.20) 03/26/23 05:47 ESR 7 mm/hr (0-30) 03/25/23 12:14 Sodium 140 mmol/L (136-145) 04/01/23 06:12 Potassium 4.1 mmol/L (3.5-5.1) 04/01/23 06:12 Chloride 104 mmol/L (98-107) 04/01/23 06:12 Carbon Dioxide 30 mmol/L (21-32) 04/01/23 06:12 Anion Gap 6 (3-11) 04/01/23 06:12 BUN 14 mg/dl (6-23) 04/01/23 06:12 Creatinine 0.61 mg/dl (0.6-1.2) 04/01/23 06:12 Est Cr Clr Drug Dosing 77.8 ml/min 04/01/23 06:12 Est GFR ( Amer) 111.0 ml/min 04/01/23 06:12 Est GFR (Non-Af Amer) 95.8 ml/min 04/01/23 06:12 BUN/Creatinine Ratio 23.0 (10-20) H 04/01/23 06:12 Glucose 102 mg/dl (70-99(Fasting)) H 04/01/23 06:12 Calcium 9.8 mg/dl (8.6-10.3) 04/01/23 06:12 Magnesium 2.1 mg/dl (1.7-2.4) 03/27/23 07:01 Total Bilirubin 1.9 mg/dl (0.2-1.0) H 03/27/23 07:01 AST 13 U/L (13-39) 03/27/23 07:01 ALT 9 U/L (7-52) 03/27/23 07:01 Alkaline Phosphatase 50 U/L (34-104) 03/27/23 07:01 Troponin I High Sens < 2.3 pg/ml (0-14) 03/25/23 12:14 C-Reactive Protein < 0.50 mg/dl (0-0.5) 03/25/23 12:14 Total Protein 6.6 gm/dl (6.0-8.3) 03/27/23 07:01 Albumin 4.1 gm/dl (3.4-5.0) 03/27/23 07:01 Globulin 2.5 gm/dl (2.5-4.0) 03/27/23 07:01 Albumin/Globulin Ratio 1.6 (0.9-2) 03/27/23 07:01 Triglycerides 77 mg/dl (0-150) 03/27/23 07:01 Cholesterol 191 mg/dl (0-200) 03/27/23 07:01 LDL Cholesterol, Calc 112 mg/dl 03/27/23 07:01 VLDL Cholesterol, Calc 15 mg/dl (0-30) 03/27/23 07:01 HDL Cholesterol 64 mg/dl 03/27/23 07:01 Cholesterol/HDL Ratio 3.0 (0-5) 03/27/23 07:01 Lipase 40 U/L (11-82) 03/25/23 12:14 Renin Activity <0.04 ng/mL/h (0.25-5.82) L 03/26/23 05:47 TSH 1.527 uIu/ml (0.300-4.500) 03/26/23 05:47 Urine Opiates Screen Neg (Neg) 03/25/23 Unknown Ur Methadone, Qual Neg (Neg) 03/25/23 Unknown Urine Barbiturates Neg (Neg) 03/25/23 Unknown Ur Phencyclidine (PCP) Neg (Neg) 03/25/23 Unknown U Amphetamin/Meth Scrn Neg (Neg) 03/25/23 Unknown MDMA (Ecstasy) Screen Neg (Neg) 03/25/23 Unknown U Benzodiazepines Scrn Neg (Neg) 03/25/23 Unknown Ur Cocaine Metabolite Neg (Neg) 03/25/23 Unknown U Marijuana (THC) Screen Neg (Neg) 03/25/23 Unknown Impressions Chest X-Ray 03/25/23 11:20 XR chest 1V portable CLINICAL HISTORY: Chest pain, nonspecific COMPARISON STUDY: Chest CT April 08, 2019. Chest CT February 11, 2023. FINDINGS: Lung volumes are normal. Lungs are clear. There is no pneumothorax or pleural effusion. Cardiac size is normal. Mediastinal contours are normal. There is no evidence for pulmonary edema. Nipple shadows project over the lower chest. IMPRESSION: No acute cardiopulmonary findings. ACT 112: Negative or not required by law. Electronically signed by: Fabian Dong M.D. 03/25/2023 12:39 PM Renal Artery Duplex 03/25/23 14:07 DOPPLER ULTRASOUND OF THE RENAL ARTERIES CLINICAL HISTORY: Malignant hypertension. COMPARISON STUDY: CTA of the chest performed earlier today. Renal ultrasound January 28, 2022. TECHNIQUE: Grayscale, color and duplex Doppler sonography of the abdominal aorta and renal arteries was performed. FINDINGS: The peak systolic velocity within the abdominal aorta was 73 cm/s. The bilateral renal arteries and veins were patent. Peak systolic velocity within the right renal artery was 54 cm/s. Peak systolic velocity within the left renal artery was 53 cm/s. Segmental waveforms within both kidneys were within normal limits. IMPRESSION: No sonographic evidence of renal artery stenosis. ACT 112: Negative or not required by law. Electronically signed by: Fabian Dong M.D. 03/25/2023 7:23 PM Chest CTA 03/25/23 15:15 CT ANGIOGRAPHY OF THE CHEST DISSECTION PROTOCOL CLINICAL HISTORY: Chest pain. Evaluate for dissection. COMPARISON STUDY: Chest radiograph performed earlier today. Chest CT April 08, 2019. TECHNIQUE: Before and following the IV administration of 110 mL of Optiray, helical axial images of the chest were obtained. Maximal intensity projections and sagittal and coronal reformats were viewed on an independent 3D workstation. IV contrast was administered without complication. Automated exposure control was utilized for the study. A dose lowering technique was utilized adhering to the principles of ALARA. CT DOSE: 492.87 mGy.cm FINDINGS: The caliber of the thoracic aorta is normal. There is no thoracic aortic dissection or intramural hematoma. No pulmonary emboli are identified. S ize of the heart is normal. A small pericardial effusion is similar to CT of April 08, 2019. There is no pneumothorax or pleural effusion. There is no consolidation to suggest pneumonia. A few tiny pulmonary nodules are unchanged. There are no new nodules. No acute fractures within the bony thorax are noted. Visualized portions of the upper abdomen are unremarkable. IMPRESSION: 1. No thoracic aortic dissection. 2. No pulmonary emboli. 3. No consolidation to suggest pneumonia. 4. Small pericardial effusion, similar to CT of April 08, 2019. ACT 112: Negative or not required by law. Electronically signed by: Fabian Dong M.D. 03/25/2023 4:[address] 03/26/23 08:03 CT head/brain wo con CLINICAL HISTORY: 62 years-old Female with Headache. Acute headache TECHNIQUE: Multiple axial CT images of the head were obtained without contrast. A dose lowering technique was utilized adhering to the principles of ALARA. CT DOSE: 547.75 mGy.cm COMPARISON: 04/08/2019 FINDINGS: No acute intracranial hemorrhage, midline shift, intracranial mass, hydrocephalus, territorial ischemia or abnormal extra-axial collection. Mild white matter hypodensities suggestive of chronic microvascular ischemic disease. Unchanged small focus of left frontal lobe periventricular encephalomalacia on image 17 series 2 suggestive of a chronic infarct. The calvarium is intact. 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 1.7 cm lucent focus within the left calvarium on image 18 series 3 previously measured 1.3 cm. This is favored to be benign. The paranasal sinuses, mastoid air cells, and middle ear cavities are clear. IMPRESSION: No acute intracranial abnormality. ACT 112: Negative or not required by law. The above report was generated using voice recognition software. It may contain grammatical, syntax or spelling errors. Electronically signed by: Tang Martinez M.D. 03/26/2023 9:25 AM
[2023-04-01] MEDS: FAMOTIDINE 20 MG TAB PO SCH (22:04)
[2023-04-02] MEDS ORDERED: SODIUM CHLORIDE 0.9% 500 ML IV ONE (00:26)
[2023-04-02] MEDS: ACETAMINOPHEN SUSP 325 MG/10.15 ML UDC PO PRN (00:33)
[2023-04-02 01:21] LABS: Basophils # (auto) 0.03 K/uL (0.00-0.20); Basophils % (auto) 0.5 %; Eosinophils # (auto) 0.11 K/uL (0.00-0.50); Hematocrit (blood only) 37.4 % (37.0-47.0); Hemoglobin 13.3 g/dl (12.0-16.0); Immature Granulocytes # (auto) 0.02 K/uL (0.01-0.20); Immature Granulocytes % (auto) 0.4 %; Lymphocytes # (auto) 1.52 K/uL (1.20-3.40); Mean Corpuscular Hemoglobin 29.8 pg (25.0-34.0); Mean Corpuscular Hgb Conc 35.6 g/dL (32.0-36.0); Mean Corpuscular Volume 83.7 fL (80.0-100.0); Mean Platelet Volume 10.1 fL (9.4-12.4); Monocytes # (auto) 0.73 K/uL (0.11-0.59); Neutrophils # (auto) 3.21 K/uL (1.40-6.50); Neutrophils % (auto) 57.1 %; Platelet Count 201 K/uL (130-400); RDW Coefficient of Variation 13.3 % (11.5-14.5); Red Blood Count 4.47 M/uL (4.20-5.40); White Blood Count 5.62 K/ul (4.8-10.8)
[2023-04-02 01:33] LABS: Calcium 9.4 mg/dl (8.6-10.3); Magnesium 2.1 mg/dl (1.7-2.4)
[2023-04-02 01:39] LABS: BUN Creatinine Ratio 25.8 (10-20); Est GFR (African American) 107.4 ml/min; Est GFR (Non-African American) 92.7 ml/min
[2023-04-02] MEDS: carvediloL 12.5 MG TAB PO SCH (07:59)
[2023-04-02] MEDS: LOSARTAN POTASSIUM 50 MG TAB PO SCH (07:59)
[2023-04-02] MEDS: LANSOPRAZOLE 30 MG SOLTAB PO SCH (07:59)
[2023-04-02] MEDS: FUROSEMIDE 20 MG TAB PO SCH (07:59)
[2023-04-02] MEDS: LORATADINE 1 MG/1 ML PO SCH (08:00)
[2023-04-02] MEDS: ENOXAPARIN INJ 40 MG/0.4 ML SYR SQ SCH (08:00)
[2023-04-02] MEDS: SPIRONOLACTONE 25 MG TAB PO SCH (08:00)
[2023-04-02] MEDS: POTASSIUM CHLORIDE PWD 20 MEQ PACK PO SCH (08:00)
[2023-04-02] MEDS: LORazepam 1 MG TAB PO SCH (08:09)
[2023-04-02] MEDS: MULTI VIT W/MINERALS LIQUID 15 ML UDP PO SCH (08:44)
--- NOTE | 2023-04-02 09:10 | Cardiology Progress Note ---
Date of Service April 02, 2023 Assessment & Plan (1) Hypertensive urgency: (2) Chest pain: Plan -Patient with intermittent chest pain initially reported in the setting of uncontrolled hypertension however after BP improved had abnormal nuclear stress with apical perfusion defect and severe chest pain with administration of lexiscan. -Coronary angiography performed 04/01/23 revealed normal coronaries with normal filling pressures. Certainly suggests that there is a component of anxiety related to her chest pain as she had recurrent symptoms immediately before the procedure this am. * K+ had been low despite being on Losartan - may be a clue to underlying adrenal challenge * Consider outpt Endocrine Evaluation for Hyperadrenal State * Clonidine (OFF) * Nitropaste discontinued * TSH - WNL * Renin/Kenney - pending * Catecholamine - pending * TOX negative * Troponin - WNL * LVEF 55-60%, moderate LVH, no major valve pathology, small anterior pericardial effusion. * Continue losartan 100 mg, furosemide 20 PO daily, Potassium chloride 20 meq daily, spironolactone 25 mg daily, coreg 12.5 mg BID. * Increase activity, walk in unit. * Tentative DC today. Admission and Anticipated Discharge Date Admission Date: March 25, 2023 Subjective Patient overall feels improved compared to the day of admission. Has not been walking much yet. Notes ongoing pressure in her chest. Telemetry reveals SR in the 60s to 70s. Physical Exam Constitutional: well nourished; no acute distress Respiratory: normal respiratory effort; no respiratory distress, no labored breathing and no retractions Cardiovascular: Rate/Rhythm: regular rate and regular rhythm Heart Sounds: normal S1 and normal S2; no murmur Vessels: no JVD and no carotid bruit Extremities: no edema Gastrointestinal (Abdomen): Inspection/Auscultation: normal bowel sounds; abdomen not distended and no abdominal edema Percussion/Palpation: abdomen soft; abdomen nontender, no guarding and abdomen not rigid Results & Data Vital Signs (Past 12 Hours) Vital Signs Temp Pulse Resp BP Pulse Ox O2 Del Method 04/02/23 07:28 36.8 C 73 17 123/73 97 Room Air 04/02/23 03:54 36.6 C 66 16 103/67 98 Room Air 04/02/23 01:49 77 120/69 04/01/23 22:38 36.5 C 69 16 89/48 L 96 Room Air Laboratory Results CBC 04/02/23 Range/Units 00:52 WBC 5.62 (4.8-10.8) K/ul RBC 4.47 (4.20-5.40) M/uL Hgb 13.3 (12.0-16.0) g/dl Hct 37.4 (37.0-47.0) % Plt Count 201 (130-400) K/uL Neut # (Auto) 3.21 (1.40-6.50) K/uL Lymph # (Auto) 1.52 (1.20-3.40) K/uL [place] # (Auto) 0.73 H (0.11-0.59) K/uL Eos # (Auto) 0.11 (0.00-0.50) K/uL Baso # (Auto) 0.03 (0.00-0.20) K/uL Comprehensive Metabolic Panel 04/02/23 Range/Units 00:52 Sodium 138 (136-145) mmol/L Potassium 4.0 (3.5-5.1) mmol/L Chloride 104 (98-107) mmol/L Carbon Dioxide 26 (21-32) mmol/L BUN 17 (6-23) mg/dl Creatinine 0.66 (0.6-1.2) mg/dl Glucose 118 H (70-99(Fasting)) mg/dl Calcium 9.4 (8.6-10.3) mg/dl Intake and Output 04/01/23 04/02/23 04/02/23 22:59 06:59 14:59 Intake Total 500 / 740 Balance 500 / 740 Intake: IV 500 / 500 Sodium Chloride 0.9% 500 ml @ 500 / 500 500 mls/hr IV .Q1H ONE Rx#: [id number] Other: Other Intake Source sips # Unmeasured Voids 1 Weight 52.9 kg 54.6 kg Weight Measurement Method Built in [facility] (2) Chest pain Chest pain type: unspecified Qualified Code(s): R07.9 - Chest pain, unspecified
--- NOTE | 2023-04-02 10:36 | XRay Report ---
XR chest 1V portable HISTORY: shortness of breath COMPARISON: 03/25/2023. FINDINGS: The lungs are clear. Cardiac silhouette is normal in size. No pleural effusions. No pneumot horax. IMPRESSION: No acute process. ACT 112: Negative or not required by law. Electronically signed by: Dewayne Jarvis M.D. 04/02/2023 10:34 AM
[2023-04-02] MEDS: GABAPENTIN 250 MG/5 ML 470 ML BTL PO SCH (14:43)
--- NOTE | 2023-04-02 14:48 | Discharge Summary ---
Date of Service April 02, 2023 Admission HPI Per Admitting Provider This is a 62-year-old female who has a significant past medical history of hypertension, migraine, chronic ulnar nerve palsy and currently disabled for such who presented to ED at the referral of cardiology due to resistant HTN. Of significance patient has been in her normal state of health until December. She states in December her blood pressure has been relatively well controlled. She did have significant episode of stress in January and February which prompted her lorazepam dose in the morning. At this point time she feels her stressor has since been controlled; however, her significantly elevated blood pressure also has her anxious as well. Over the last 2 months that she has been noticing chest pressure substernally, nonradiating with exertion. Symptoms tend to come and go. She also is been complaining of a worsening of frontal headache. This feels different than her typical migraine headache. The headache tends to come and go and also is mostly in the temporal region. She otherwise denies any recent illness, fever, chills, sweats, lightheadedness, dizziness, change in hearing, change in vision, tinnitus, shortness of breath, palpitations, nausea, vomiting, abdominal pain or change in her bowel or urinary habits. She further denies any URI symptoms, cough or hemoptysis. She denies significant NSAID use, she denies tobacco or alcohol products or excessive salt consumption. Outpat ient cardiology note was reviewed thoroughly in detail patient's prior history of hypertension and treatment history. She does not tolerate amlodipine or thiazide diuretics. She also has difficulty with dysphagia for which she follows GI for. She mostly has to cut her medications in half for take with yogurt. Currently she is maintained on losartan 100 mg daily as well as metoprolol succinate 50 mg daily. On 02/05/2023 is when she was initially prescribed metoprolol succinate at 12.5 mg daily. She was then seen in the ED on 02/11/2023 and her metoprolol has since been titrated to 50 mg daily. In cardiology clinic today her initial blood pressure was 210/96, after resting for 20 minutes and performed manually in her left arm it measured 200/100. This was also after taking her losartan this morning as well as 1 mg of lorazepam. Admission Exam Per Admitting Provider Constitutional: WD/WN, vitals as above, NAD, sitting up in bed, pleasant, conversing easily Head: Normocephalic, Atraumatic Eyes: PERRL, conjunctivae normal, anicteric sclerae ENMT: external ear and nose normal, oropharynx normal Neck: trachea midline, no thyromegaly normal visual inspection Respiratory: normal respiratory effort, lungs clear to auscultation, no wheeze, rales, rhonchi. Normal insp/exp effort, no accessory muscle use Cardiovascular: RRR, no murmur, no edema Vessels: no JVD or carotid bruit Chest: normal inspection of chest Abdomen: normal bowel sounds, soft, nontender, no hepatosplenomegaly Musculoskeletal: no cyanosis or clubbing, extremities motor strength 5/5 Skin: no rashes, warm and dry normal turgor Neurologic: PERRL, EOMI, accommodation nl, no face palsy, no dysarthria CN's II-XI intact bilaterally and moves all extremities Psychiatric: A+Ox3, euthymic affect Lymphatic: no cervical or axillary lymphadenopathy : deferred Principal Diagnosis Hypertensive urgency Abnormal stress test, CAD rule out Discharge Exam Physical Exam: Vitals signs as noted above General Appearance:Thin, no apparent distress Head: normocephalic, Atraumatic Eyes: normal inspection, EOMI Neck: supple, Trachea midline Respiratory/Chest: Normal breath sounds, CTA, No accessory muscle use Cardiovascular: S1, S2, No murmur Abdomen/GI:Soft, Non tender, Bowel sounds present Extremities/Musculoskeletal:normal inspection, no edema Neurologic/Psych:AAOX3, grossly no focal neurological deficits Skin: normal color, warm Discharge Data Allergies Allergy/AdvReac Type Severity Reaction Status Date / Time chocolate flavor Allergy Severe HIVES Verified 03/25/23 13:07 diphenhydramine Allergy Intermediate CHEST Verified 03/25/23 13:07 PAIN, TACHYCARDIA oxycodone Allergy Intermediate hives Verified 03/25/23 13:07 tetracycline Allergy Mild HIVES Verified 03/25/23 13:07 clopidogrel [From Plavix] AdvReac Severe facial Verified 03/25/23 13:07 rash & chest pain hydrocodone [From [place]] AdvReac Intermediate ITCHING, Verified 03/25/23 13:07 WELTS Xnyanaf-GWC-UlN Reductase AdvReac Intermediate myalgia in Verified 03/25/23 13:07 Inhibitor legs [Qyaaevd-Ezw-Stl Reductase Inhibitor] codeine AdvReac Mild HEADACHES Verified 03/25/23 13:07 latex AdvReac Mild redness/itching/localized Verified 03/25/23 13:07 swelling amlodipine [From Norvasc] AdvReac leg Verified 03/25/23 13:11 swelling chlorthalidone AdvReac vomiting, Verified 03/25/23 13:11 diarrhea hydrochlorothiazide AdvReac vomiting, Verified 03/25/23 13:11 diarrhea Consultations 03/25/23 14:06 ED Decision to Admit Stat 03/25/23 14:19 Consult Cardiology Routine Procedures Performed Operation Date: 04/01/23 13:30 Actual Procedures p Cath, Left with Cors and Vent - Claudio Wells MD s Cineradiography w/Routine Exam - Claudio Wells MD Ordered Studies 03/25/23 14:07 US doppler renal [US duplex renal artery] Routine 03/25/23 15:15 CTA chest dissec wo/w con [CT angio chest dissec wo/w con] Stat 03/26/23 08:03 CT head/brain wo con Urgent 04/01/23 07:19 CL Cath Imgs for PACS use only Routine Hospital Course (1) Hypertensive urgency: Plan Patient is a 62-year-old female who has a significant past medical history of hypertension, migraine, chronic ulnar nerve palsy and currently disabled for such who presented to ED at the referral of cardiology due to resistant HTN. HTN Urgency Uncontrolled hypertension --Chest CTA: No thoracic aortic dissection. No pulmonary emboli. No consolidation to suggest pneumonia. Small pericardial effusion, similar to CT of April 08, 2019. --Head CT:No acute intracranial abnormality. --ECHO: Compared to prior study, no significant change. Moderate concentric LVH. EF 55 to 60%. Incidental small anterior pericardial effusion, grade 1 diastolic dysfunction. --Renal Artery Duplex: No sonographic evidence of renal artery stenosis. --Normal TSH --- Blood work for secondary hypertension pending --Normal lipid panel During the hospitalization, cardiology was consulted for comanagement. At discharge, she was placed on losartan 100 mg once a day, Lasix 20 mg once a day, Coreg 12.5 mg twice a day and spironolactone 25 mg once a day. Patient to follow-up with PCP and obtain endocrinology referral for hyperadrenal state evaluation R/O ACS Abnormal stress test Lexiscan nuclear stress test done morning 03/28/2023 suggestive of apical ischemia versus artifact. Given ongoing chest heaviness, dyspnea on exertion: Patient underwent cardiac cath Cardiac cath done on April 01, 2023 shows angiographically normal coronary arteries. Please note the above document was generated using voice recognition software. It may contain grammatical, syntax or spelling errors. Any formal questions or concerns about the content, text or information contained within the body of this dictation should be directly addressed to the provider for clarification Total Time Total Time Spent Total Time Spent (In Minutes): 45 Total Time Includes: Examination of the Patient, Discharge Planning, Medication Reconciliation, Communication With Other Providers and Other Discharge Plan Discharge Items Patient Disposition: Home - Self-Care Reason For Visit: HTN URGENCY Discharge Diagnosis: Hypertensive urgency Abnormal stress test Activity: Resume your previous activity Non-emergency contact: Primary Care Provider Call non-emergency contact if: you have any medication questions and your symptoms worsen Follow-up/Referrals: Karolina Carranza PA-C [Primary Care Provider] - Diet: Regular Addtl Attending Provider Instructions: You were admitted to the hospital due to high blood pressure. 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 They recommend following medication adjustment: 1) Continue to take losartan 100 mg once a day. 2) stop taking metoprolol 3) start taking Lasix 20 mg once a day in the morning 4) start taking spironolactone 25 mg once a day in the morning 5) start taking Coreg 12.5 mg twice a day(morning and night) 6) Kcl 20 mEq once a day. An appointment will be set up with your primary care doctor for sometime next week. Cardiology recommend outpatient endocrine evaluation for hyperadrenal state. Pending Studies at Discharge: Yes Studies:: Renal/aldosterone ratio, catecholamine Stand-Alone Forms: My [employer], Smoking Cessation Medications and DC Order Prescriptions: New carvedilol 12.5 mg Tablet 12.5 mg PO BIDM Qty: 60 0RF spironolactone 25 mg Tablet 25 mg PO QAM Qty: 30 0RF potassium chloride 20 mEq Packet 20 meq PO QAM Qty: 30 0RF furosemide 20 mg Tablet 20 mg PO QAM Qty: 30 0RF Continued ondansetron HCl 4 mg tablet See Rx Instructions PO TID PRN (Reason: Nausea) Qty: 30 0RF Patient Comments: Dissolvable Rx Instructions: 1-2 tabs PO three times a day PRN; losartan 100 mg tablet 100 mg PO QAM Nurtec ODT 75 mg tablet,disintegrating 75 mg PO ONCE PRN (Reason: Migraine Headache) lorazepam 2 mg tablet 2 mg PO HS Patient Comments: per pt she crushes it Rx Instructions: CRUSH & PUT IN YOGART silver sulfadiazine 1 % cream 1 applic TOPICAL DAILY PRN (Reason: Other) loratadine [Claritin] 5 mg/5 mL Solution 5 mg PO DAILY gabapentin 250 mg/5 mL solution 500 mg PO .QAFTERNOON Patient Comments: per pt she's about to move up to 10 Rx Instructions: NEEDS ALOT OF WATER TO WASH DOWN famotidine 20 mg tablet 20 mg PO PM Patient Comments: crushed Rx Instructions: CRUSH & PUT IN YOGART clotrimazole 1 % cream 1 applic TOPICAL BID PRN (Reason: Other) pantoprazole 40 mg tablet,delayed release (DR/EC) 40 mg PO QAM acetaminophen 160 mg/5 mL Elixir 0 mg PO QID PRN (Reason: Pain) lorazepam 1 mg tablet 1 mg PO QAM Rx Instructions: CRUSH & PUT IN YOGART multivitamin Tablet 1 tab PO QAM Patient Comments: kid gummy Rx Instructions: GUMMY MVI Discontinued metoprolol succinate 25 mg tablet extended release 24 hr 50 mg PO PM Rx Instructions: BREAK EACH TAB IN HALF, TOTAL OF 4 HALF TABS Discharge Orders: Discharge Order (Routine); Ordered 04/02/23 Ordered By: Jaskaran Alvarado/Other Patient Handouts: Having Cardiac Catheterization, Cardiac Catheterization Dc Admission Data Admit Date/Time: 03/25/23 14:07 Attending Provider: Jaskaran Pena Admit Provider: Amber Thurston Primary Care Provider: Karolina Carranza Other Providers: Omar Buckner; Amber Thurston; Axel Soni Other Interventions: Discharge Summary Assessment (RN) Last Done: 04/02/23 11:23
== END 2023-04-02 16:09 | disposition home or self-care (01) | DRG 287 ==
LOC: ED 11:18 → SUATTDRO 14:07 → 2S 14:07

== ENCOUNTER 2024-04-22 11:42 | Observation (INO) ==
--- NOTE | 2024-04-22 11:52 | Emergency Department Note ---
Impression & Plan Diarrhea, Left-sided chest pain ED Provider Note NAME: ALYSHA ULLOA AGE: 64 SEX: F : 1960 ARRIVES VIA: Walk-In INFORMANT: Patient, ED PROVIDER(S): Cb Garcia MD CHIEF COMPLAINT: Chest tightness, diarrhea MEDICAL DECISION MAKING: Patient presents due to concern for chest tightness. IV was established and blood work was obtained. Patient does report that her EKG was obtained which did not have any active chest pain. Patient with a normal white count H&H and platelet count. Kidney function is unremarkable. Troponin negative BioFire negative. After further discussion with the patient I did offer to discuss the possibility of a stress test versus inpatient treatment. I did speak the on- call catalyst operator Dr. Gordon who stated no availability to complete a chemical stress test at this time. I did speak the on-call hospital service Dalia Hdez PA-C the patient was admitted by Dr. Soni. Discussion w/ other healthcare providers: Dr. Gordon cardiology Dalia Hdez PA-C and Dr. Soni inpatient medicine service Prior /Outside records reviewed: none Differential diagnosis: Cardiac ischemia, aortic dissection, pulmonary embolism, pneumothorax, pneumonia, pericarditis, myocarditis, GERD, cholecystitis, pancreatitis, musculoskeletal, as well as other pathologies were considered. Diagnostics, as interpreted by me: ECG: Normal sinus rhythm, rate of 69, normal intervals, normal axis no ST elevations T wave version in lead V2. Cardiac monitoring: An order was placed for continuous cardiac monitoring. The monitor shows a rate of 72 with sinus rhythm. Patient was placed on pulse oximetry Medical decision rules: Heart score Imaging studies: I informally interpreted the patient's chest x-ray does not show obvious pneumonia or pneumothorax with formal report to follow. HPI: Patient presents due to concern for chest pressure that has been ongoing since this morning around 5 AM. Patient was seen here 2 days ago due to concerns for diarrhea at that time. Patient states that the diarrhea improved yesterday but had a recurrence last evening. Patient states that when she woke up that is when she had a chest pressure this morning. The chest pressure did not wake her up. Patient did have 2 waffles this morning with little dysuria. Patient did take her morning meds. No vomiting. Chest pressure feels like a sitting on the chest no radiation of pain centralized. Patient denies any prior history of heart disease. Patient did have a cardiac catheterization about 2 years ago which did not require stenting. Patient states the chest pressure has been intermittent only lasting several minutes at a time. It has been exertional but occasionally occurring at rest. PAST MEDICAL HISTORY: See Below PAST SURGICAL HISTORY: See Below SOCIAL HISTORY: See Below HOME MEDICATIONS: See Below ALLERGIES: See Below VITALS: See Below PHYSICAL EXAMINATION: GENERAL: NAD, non-toxic. EYE EXAM: Normal conjunctiva. PERRL, no anisocoria and EOM's grossly intact w/o pain. OROPHARYNX: Moist mucus membranes, grossly normal dentition. NECK: Trachea midline, no stridor. Supple, no nuchal rigidity, no adenopathy, non-tender. No signs of meningismus. FROM of the neck with good chin to chest and neck extension. LUNGS: Clear to auscultation. Normal chest wall mechanics. HEART: NSR, no MRG. ABDOMEN: Abdomen soft, non-tender, no masses, no rebound or guarding. BACK: No CVA TTP. SKIN: No rashes and no bruising. UPPER EXTREMITIES: Upper extremities are grossly normal. LOWER EXTREMITIES: Grossly normal, no edema. NEURO EXAM: A&O x3, cranial nerves II-XII grossly intact, normal speech, moves all 4 extremities. Past Med/Surg History Problem List (Updated 04/26/24 @ 22:54 by Cb Garcia MD) Left-sided chest pain (Acute) Diarrhea (Acute) Encounter for annual routine gynecological examination Hyperacusis of both ears Rhinitis TMJ (temporomandibular joint syndrome) Hyperaldosteronism Hyperkinetic heart disease LVH (left ventricular hypertrophy) due to hypertensive disease New onset of headaches after age 48 Post-nasal drainage Hypertension (Chronic) Migraine (Chronic) Fracture of tibial plateau, closed (Acute) History of decompression of ulnar nerve (Chronic) x 3 Insomnia (Chronic) Osteoporosis (Chronic) GERD (gastroesophageal reflux disease) no meds at present; reason for EGD TIA (transient ischemic attack) (Acute) denies Left knee pain Hyperextension injury of left knee Painful orthopaedic hardware Colon cancer screening Encounter for cosmetic procedure Globus sensation Medical History Esophageal dysphagia Hematuria, microscopic Interstitial cystitis Closed fracture of tibial plateau Difficulty in swallowing Postoperative nausea History of esophageal dilatation Fibromyalgia 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. PREVIOUSLY TOLD AT [facility] AND [facility]. 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 Other Cancer Heart disease Hypertension No family history of adverse response to anesthesia No family history of bleeding disorder Denies family history of Ovarian cancer Prostate cancer Colorectal cancer Social History Smoking Status: Never smoker Second Hand Exposure: No; Do You Dip or Chew Tobacco: No; Hx Alcohol Use: No Hx Substance Use: No Preferred Language: Greenlandic Communication Ability: Effective Visual Impairment: No Limitations Tinsmith Helper Required: No Beliefs That Will Affect Care: None marital status: Current Living Situation: Alone Feels Safe at Home: Yes caffeine: No Dental Care, Regularly: Yes Physical Activity Frequency: Daily Seatbelt Use: always Sunscreen Use: Yes Assistive Devices: Cane and Walker Allergies Allergies Allergy/AdvReac Type Severity Reaction Status Date / Time chocolate flavor Allergy Severe HIVES Verified 04/22/24 13:55 diphenhydramine Allergy Intermediate CHEST Verified 04/22/24 13:55 PAIN, TACHYCARDIA oxycodone Allergy Intermediate hives Verified 04/22/24 13:55 tetracycline Allergy Mild HIVES Verified 04/22/24 13:55 acetaminophen [From [place]] Allergy Verified 04/22/24 13:55 atorvastatin [From Lipitor] Allergy Verified 04/22/24 13:55 peanut Allergy Verified 04/23/24 15:04 clopidogrel [From Plavix] AdvReac Severe facial Verified 04/22/24 13:55 rash & chest pain hydrocodone [From [place]] AdvReac Intermediate ITCHING, Verified 04/22/24 13:55 WELTS [id number] Reductase AdvReac Intermediate myalgia in Verified 04/22/24 13:55 Inhibitor legs [Knpzpya-Ymw-Jiq Reductase Inhibitor] codeine AdvReac Mild HEADACHES Verified 04/22/24 13:55 latex AdvReac Mild redness/itching/localized Verified 04/22/24 13:55 swelling amlodipine [From Norvasc] AdvReac leg Verified 04/22/24 13:55 swelling chlorthalidone AdvReac vomiting, Verified 04/22/24 13:55 diarrhea hydrochlorothiazide AdvReac vomiting, Verified 04/22/24 13:55 diarrhea Home Meds Home Medications Medication Instructions Recorded Confirmed lorazepam 2 mg tablet 2 mg PO HS anxiety 06/05/18 04/22/24 clotrimazole 1 % topical cream 1 applic topical BID PRN flare 02/11/23 04/22/24 famotidine 20 mg tablet 20 mg PO PM 02/11/23 04/22/24 pantoprazole 40 mg tablet,delayed 40 mg PO QAM 02/11/23 04/22/24 release silver sulfadiazine 1 % topical 1 applic topical DAILY PRN Other 02/11/23 04/22/24 cream rimegepant 75 mg disintegrating 75 mg PO ONCE PRN Migraine Headache 02/25/23 04/22/24 tablet (Nurtec ODT) losartan 25 mg tablet 25 mg PO DAILY 09/24/23 04/22/24 gabapentin 250 mg/5 mL oral 500 mg PO UD 10/01/23 04/22/24 solution azelastine 137 mcg (0.1 %) nasal 1 spray intranasal DAILY PRN 01/22/24 04/22/24 spray Allergy Symptoms loratadine 5 mg/5 mL oral solution 5 ml PO BID 01/22/24 04/22/24 (Children's Claritin) multivitamin with minerals-folic 1 tab PO DAILY 04/22/24 04/22/24 acid 200 mcg chewable tablet (Multivitamin Gummies) ondansetron 4 mg disintegrating 4 mg PO Q6H PRN Nausea And Vomiting 04/22/24 04/22/24 tablet Previous Rx's Medication Instructions Recorded potassium chloride 20 mEq oral 20 meq PO QAM #30 ea 04/02/23 packet spironolactone 25 mg tablet 25 mg PO QAM #30 tabs 04/02/23 carvedilol 6.25 mg tablet 6.25 mg PO BID #180 tabs 10/01/23 Results & Data (ED) Vital Signs Vital Signs - 24 hr 04/22/24 11:46 04/22/24 12:05 04/22/24 12:05 Temperature 36.3 C L 36.9 C Temperature Source Temporal Artery Scan Oral Pulse Rate 72 Pulse Rate [Apical] 77 Pulse Rhythm Regular Pulse Rhythm [Apical] Regular Pulse Strength Normal Pulse Strength [Apical] Normal Respiratory Rate 18 20 Respiratory Effort / Characteristics Non-Labored Spontaneous Non-Labored Spontaneous Respiratory Depth Normal Normal Respiratory Pattern Regular Regular Blood Pressure 161/91 H Blood Pressure [Left Arm] 166/95 H Blood Pressure Mean 114 Blood Pressure Mean [Left Arm] 118 Blood Pressure Position Sitting Blood Pressure Position [Left Arm] Semi-fowlers Pulse Oximetry 98 98 98 Oxygen Delivery Method Room Air Room Air Room Air Sepsis Recent Fever Within 48 Hours No Sepsis New/Unexplained Change in Mental Status No Sepsis Action Taken by Nursing No Action Required Home Medications Current Medication List: was personally reviewed by me Laboratory Data Attestation: I reviewed the patient's lab results. 04/23/24 06:02 04/23/24 06:02 Lab Results 04/22/24 04/22/24 Range/Units 12:00 12:21 WBC 5.61 (4.8-10.8) K/ul RBC 4.49 (4.20-5.40) M/uL Hgb 13.0 (12.0-16.0) g/dl Hct 38.2 (37.0-47.0) % MCV 85.1 (80.0-100.0) fL MCH 29.0 (25.0-34.0) pg MCHC 34.0 (32.0-36.0) g/dL RDW Std Deviation 39.3 (36.4-46.3) fL RDW Coeff of Terra 12.9 (11.5-14.5) % Plt Count 225 (130-400) K/uL MPV 9.4 (9.4-12.4) fL Immature Gran % (Auto) 0.2 % Neut % (Auto) 70.0 % Lymph % (Auto) 18.9 % Lucas % (Auto) 9.3 % Eos % (Auto) 1.2 % Baso % (Auto) 0.4 % Neut # (Auto) 3.93 (1.40-6.50) K/uL Lymph # (Auto) 1.06 L (1.20-3.40) K/uL Lucas # (Auto) 0.52 (0.11-0.59) K/uL Eos # (Auto) 0.07 (0.00-0.50) K/uL Baso # (Auto) 0.02 (0.00-0.20) K/uL Immature Gran # (Auto) 0.01 (0.01-0.20) K/uL Sodium 138 (136-145) mmol/L Potassium 3.8 (3.5-5.1) mmol/L Chloride 102 (98-107) mmol/L Carbon Dioxide 31 (21-32) mmol/L Anion Gap 5 (3-11) BUN 6 (6-23) mg/dl Creatinine 0.74 (0.6-1.2) mg/dl Est Cr Clr Drug Dosing 64.6 ml/min eGFR 89.18 BUN/Creatinine Ratio 8.1 L (10-20) Glucose 81 (70-99(Fasting)) mg/dl Calcium 9.8 (8.6-10.3) mg/dl Total Bilirubin 0.8 (0.2-1.0) mg/dl AST 20 (13-39) U/L ALT 12 (7-52) U/L Alkaline Phosphatase 56 (34-104) U/L Troponin I High Sens < 2.3 (0-14) pg/ml Total Protein 7.2 (6.0-8.3) gm/dl Albumin 4.3 (3.4-5.0) gm/dl Globulin 2.9 (2.5-4.0) gm/dl Albumin/Globulin Ratio 1.5 (0.9-2) Adenovirus (PCR) Not Detected (NotDetected) B. pertussis DNA (PCR) Not Detected (NotDetected) B.parapertussis DNA PCR Not Detected (NotDetected) C. pneumoniae DNA (PCR) Not Detected (NotDetected) Coronavirus OC43 (PCR) Not Detected (NotDetected) Coronavirus HKU1 (PCR) Not Detected (NotDetected) Coronavirus 229E (PCR) Not Detected (NotDetected) SARS-CoV-2 (PCR) Not Detected (NotDetected) Coronavirus NL63 (PCR) Not Detected (NotDetected) Human Metapneumovir PCR Not Detected (NotDetected) Influenza Type A (PCR) Not Detected (NotDetected) Influenza Type B (PCR) Not Detected (NotDetected) M. pneumoniae (PCR) Not Detected (NotDetected) Parainfluenza 1 (PCR) Not Detected (NotDetected) Parainfluenza 2 (PCR) Not Detected (NotDetected) Parainfluenza 3 (PCR) Not Detected (NotDetected) Parainfluenza 4 (PCR) Not Detected (NotDetected) RSV (PCR) Not Detected (NotDetected) Entero/Rhino (PCR) Not Detected (NotDetected) Administered Medications Discontinued Medications Aspirin (Aspirin Chew 324 Mg) 324 mg PO NOW [facility] Stop: 04/22/24 14:37 Last Admin: 04/22/24 14:44 Dose: 324 mg Documented By: ALEXUS Carvedilol (Carvedilol 6.25 Mg Tab) 6.25 mg PO BID ELLEN Stop: 05/22/24 20:59 Last Admin: 04/23/24 11:28 Dose: 6.25 mg Documented By: Admin: 04/22/24 20:45 Dose: 6.25 mg Documented By: CHEPE Famotidine (Famotidine 20 Mg Tab) 20 mg PO PM ELLEN Stop: 05/22/24 20:59 Last Admin: 04/22/24 20:45 Dose: 20 mg Documented By: CHEPE Gabapentin (Gabapentin 250 Mg/5 Ml 470 Ml Btl) 500 mg PO BID@1400,2000 ELLEN Stop: 05/22/24 19:59 Last Admin: 04/23/24 14:42 Dose: 500 mg Documented By: Admin: 04/22/24 20:50 Dose: 500 mg Documented By: CHEPE Gabapentin (Gabapentin 250 Mg/5 Ml 470 Ml Btl) 750 mg PO DAILY@0800 ELLEN Stop: 05/23/24 07:59 Last Admin: 04/23/24 08:50 Dose: 750 mg Documented By: MARY Sodium Chloride (Nss) 500 mls @ 999 mls/hr IV .Q31M ONE Stop: 04/22/24 12:38 Last Infusion: 04/22/24 12:56 Dose: Infused Documented By: Admin: 04/22/24 12:20 Dose: 999 mls/hr Documented By: ALEXUS Famotidine (Pepcid 20mg Iv Push) 20 mg in 5 mls @ 2.5 mls/min IV NOW STA Stop: 04/22/24 15:54 Last Admin: 04/22/24 16:47 Dose: 2.5 mls/min Documented By: BHAVIN Lactobacillus Acidophilus (Advanced Probiotic 625 Mg Capsule) 1,250 mg PO DAILY [facility] Stop: 05/23/24 08:59 Last Admin: 04/23/24 11:28 Dose: 1,250 mg Documented By: MARY Loratadine (Loratadine 1 Mg/1 Ml) 5 mg PO BID [facility] Stop: 05/22/24 20:59 Last Admin: 04/23/24 08:51 Dose: Not Given Documented By: Admin: 04/22/24 21:01 Dose: Not Given Documented By: CHEPE Lorazepam (Lorazepam 1 Mg Tab) 2 mg PO HS [facility] Stop: 05/22/24 20:59 Last Admin: 04/22/24 20:44 Dose: 2 mg Documented By: CHEPE Losartan Potassium (Losartan Potassium 25 Mg Tab) 25 mg PO DAILY [facility] Stop: 05/23/24 08:59 Last Admin: 04/23/24 11:28 Dose: 25 mg Documented By: MARY Pantoprazole Sodium (Pantoprazole 40 Mg Tab) 40 mg PO QAM [facility] Stop: 05/23/24 08:59 Last Admin: 04/23/24 11:28 Dose: 40 mg Documented By: MARY Potassium Chloride (Potassium Chloride Pwd 20 Meq Pack) 20 meq PO QAM [facility] Stop: 05/23/24 08:59 Last Admin: 04/23/24 11:27 Dose: 20 meq Documented By: MARY Spironolactone (Spironolactone 25 Mg Tab) 25 mg PO QAM [facility] Stop: 05/23/24 08:59 Last Admin: 04/23/24 11:28 Dose: 25 mg Documented By: MARY Imaging Data Radiologist's Impression: Chest X-Ray 04/22/24 12:37 XR chest 1V portable CLINICAL HISTORY: chest pressure TECHNIQUE: Single frontal radiograph of the chest was obtained. Comparison: Comparison is made to chest radiograph 04/02/2023 FINDINGS: No lines and tubes are seen. The cardiomediastinal silhouette is normal. The lungs are clear. No evidence of pleural effusion or pneumothorax. IMPRESSION: No acute chest disease. ACT 112: Negative or not required by law. Electronically signed by: Ayan Ricardo M.D. 04/22/2024 12:59 PM Discharge Plan Visit Data Chief Complaint: Chest Pain Stated Complaint: CHEST PAIN/PRESSURE, WEAKNESS ED Provider: Cb Garcia Discharge Problem: Diarrhea, Left-sided chest pain Patient Disposition: Admitted As Inpatient Discharge Instructions Interventions: ED Discharge Assessment Last Done: 04/22/24 15:34 Discharge Problem: Diarrhea Qualifiers: Diarrhea type: unspecified type Qualified Code(s): R19.7 - Diarrhea, unspecified
[2024-04-22 12:13] LABS: Basophils # (auto) 0.02 K/uL (0.00-0.20); Basophils % (auto) 0.4 %; Eosinophils # (auto) 0.07 K/uL (0.00-0.50); Eosinophils % (auto) 1.2 %; Hematocrit (blood only) 38.2 % (37.0-47.0); Immature Granulocytes # (auto) 0.01 K/uL (0.01-0.20); Immature Granulocytes % (auto) 0.2 %; Lymphocytes # (auto) 1.06 K/uL (1.20-3.40); Lymphocytes % (auto) 18.9 %; Mean Corpuscular Volume 85.1 fL (80.0-100.0); Mean Platelet Volume 9.4 fL (9.4-12.4); Monocytes # (auto) 0.52 K/uL (0.11-0.59); Monocytes % (auto) 9.3 %; Neutrophils # (auto) 3.93 K/uL (1.40-6.50); Platelet Count 225 K/uL (130-400); RDW Coefficient of Variation 12.9 % (11.5-14.5); RDW Standard Deviation 39.3 fL (36.4-46.3); Red Blood Count 4.49 M/uL (4.20-5.40); White Blood Count 5.61 K/ul (4.8-10.8)
[2024-04-22] MEDS: SODIUM CHLORIDE 0.9% 500 ML IV ONE (12:20)
[2024-04-22 12:29] LABS: Alanine Aminotransferase 12 U/L (7-52); Albumin Globulin Ratio 1.5 (0.9-2); Albumin Level 4.3 gm/dl (3.4-5.0); Alkaline Phosphatase 56 U/L (34-104); Anion Gap 5 (3-11); Aspartate Aminotransferase 20 U/L (13-39); BUN Creatinine Ratio 8.1 (10-20); Bilirubin,Total 0.8 mg/dl (0.2-1.0); Blood Urea Nitrogen 6 mg/dl (6-23); Calcium 9.8 mg/dl (8.6-10.3); Carbon Dioxide 31 mmol/L (21-32); Chloride 102 mmol/L (98-107); Creatinine Clr Calc Pharmacy 64.6 ml/min; Globulin 2.9 gm/dl (2.5-4.0); Glucose 81 mg/dl (70-99(Fasting)); Potassium 3.8 mmol/L (3.5-5.1); Sodium 138 mmol/L (136-145); Total Protein 7.2 gm/dl (6.0-8.3)
[2024-04-22 12:36] LABS: Troponin I High Sensitivity < 2.3 pg/ml (0-14)
--- NOTE | 2024-04-22 12:44 | Electrocardiogram Report ---
Test Reason : Blood Pressure : */* mmHG Vent. Rate : 69 BPM Atrial Rate : 69 BPM P-R Int : 166 ms QRS Dur : 74 ms QT Int : 384 ms P-R-T Axes : 64 39 76 degrees QTcB Int : 411 ms Normal sinus rhythm Normal ECG When compared with ECG of 20-Apr-2024 09:39, No significant change was found Confirmed by Haim Díaz ([id number]) on 04/22/2024 12:44:32 PM Referred By: Confirmed By: Haim Díaz
--- NOTE | 2024-04-22 13:01 | XRay Report ---
XR chest 1V portable CLINICAL HISTORY: chest pressure TECHNIQUE: Single frontal radiograph of the chest was obtained. Comparison: Comparison is made to chest radiograph 04/02/2023 FINDINGS: No lines and tubes are seen. The cardiomediastinal silhouette is normal. The lungs are clear. No evid ence of pleural effusion or pneumothorax. IMPRESSION: No acute chest disease. ACT 112: Negative or not required by law. Electronically signed by: Ayan Ricardo M.D. 04/22/2024 12:59 PM
[2024-04-22 13:38] LABS: Adenovirus PCR Not Detected (NotDetected); Bordetella parapertussis PCR Not Detected (NotDetected); Bordetella pertussis PCR Not Detected (NotDetected); Chlamydia pneumoniae PCR Not Detected (NotDetected); Coronavirus 229E PCR Not Detected (NotDetected); Coronavirus CoV-2 (COVID19)PCR Not Detected (NotDetected); Coronavirus HKU1 PCR Not Detected (NotDetected); Coronavirus NL63 PCR Not Detected (NotDetected); Coronavirus OC43PCR Not Detected (NotDetected); Human Metapneumovirus PCR Not Detected (NotDetected); Influenza A PCR Not Detected (NotDetected); Influenza B PCR Not Detected (NotDetected); Mycoplasma pneumoniae PCR Not Detected (NotDetected); Parainfluenza Virus 1 PCR Not Detected (NotDetected); Parainfluenza Virus 2 PCR Not Detected (NotDetected); Parainfluenza Virus 3 PCR Not Detected (NotDetected); Parainfluenza Virus 4 PCR Not Detected (NotDetected); Respiratory Syncytial VirusPCR Not Detected (NotDetected); Rhinovirus/Enterovirus PCR Not Detected (NotDetected)
[2024-04-22] MEDS: ASPIRIN CHEW 324 MG PO STA (14:44)
--- NOTE | 2024-04-22 14:49 | History & Physical Report ---
Date of Service April 22, 2024 Assessment & Plan (1) Left-sided chest pain: (2) Diarrhea: (3) Hypertension: Plan This is a 64-year-old female who has a significant past medical history of HTN, osteoporosis, migraines, GERD who presents to hospital secondary to experiencing left-sided chest pain that started approximately 530 this morning. Left sided chest pain admit to tele cycle trops, ECG w/o ischemic change pt chest pain free currently received 324mg ASA in ED obtain Echocardiogram Pt was hospitalized 03/2023 for chest pain, + stress test, cardiac cath with clean coronaries I suspect pt sx are likely GI related given ongoing diarrheal illness and missed pepcid dose will work up with cycling trops, obtain resting ecg will make NPO in a.m. in event cardiology felt dobutamine stress test warranted (pt unable to walk long distance due to knee pain) Diarrheal Illness recently completed course of keflex, could be ADR vs viral vs cdiff Biofire stool panel and cdiff pending HTN: BP elevated in ED 150s/80s, on losartan, carvedilol and aldactone, continue for now and monitor DVT ppx: SCDS for now, if to remain hospitalized > 24hrs would add chemical ppx FULL CODE PCP: Karolina Carranza Dispo: admit to PCU under obs for chest pain work up Pt was seen and examined in collaboration with Dr. Soni, please see addendum I spent a total of 60 minutes reviewing notes, outpatient records, labs, medication, coordinating, documenting and providing care for this patient excluding time spent in the performance of separately billed services. History of Present Illness Chief Complaint: Chest pain since 530. Primary Care Provider: Karolina Carranza PA-C This is a 64-year-old female who has a significant past medical history of HTN, osteoporosis, migraines, GERD who presents to hospital secondary to experiencing left-sided chest pain that started approximately 530 this morning. She reports episode of chest pain this morning. The pain started after she woke up this morning. Around 5:30 a.m. she felt a left sided pressure. These sx were off and on all morning. It would typically last a few minutes. She describes it as dull aching. She denies any radiation of pain. Nothing made the pain better or worse. She denies any associated SOB, diaphoresis, lightheaded, dizziness or cough. She did not take her pepcid last night. She typically takes it every night. This morning she did have some episodes of belching. Pt reports off and on diarrhea over the last several days. Her diarrhea is very loose and watery. She denies any nausea, vomiting or abd pain. She reports being in her normal state of health until her diarrhea started 3 days ago. She is lactose intolerant and does avoid dairy products. She is having 10 + BM daily. Also of note patient recent completed outpatient course of Keflex for 5 days due to infection on her toe. One yr ago she was hospitalized due to chest pain. Her stress test was positive and she underwent a cardiac cath which revealed normal coronary arteries. Her sx today feel different then last year. She reports having chronic difficulty swallowing. She usually has to crush her pills unless they are really small. She can eat normal food, but she makes sure she really chews her food and she is careful what she eats. In ED patient remained hemodynamically stable. Her initial troponin was unremarkable. Her EKG was without acute ischemic changes. Allergies Allergy/AdvReac Type Severity Reaction Status Date / Time chocolate flavor Allergy Severe HIVES Verified 04/22/24 13:55 diphenhydramine Allergy Intermediate CHEST Verified 04/22/24 13:55 PAIN, TACHYCARDIA oxycodone Allergy Intermediate hives Verified 04/22/24 13:55 tetracycline Allergy Mild HIVES Verified 04/22/24 13:55 acetaminophen [From [place]] Allergy Verified 04/22/24 13:55 atorvastatin [From Lipitor] Allergy Verified 04/22/24 13:55 clopidogrel [From Plavix] AdvReac Severe facial Verified 04/22/24 13:55 rash & chest pain hydrocodone [From [place]] AdvReac Intermediate ITCHING, Verified 04/22/24 13:55 WELTS Agpinjl-VMM-RtT Reductase AdvReac Intermediate myalgia in Verified 04/22/24 13:55 Inhibitor legs [Zvjszgt-Wzt-Xdr Reductase Inhibitor] codeine AdvReac Mild HEADACHES Verified 04/22/24 13:55 latex AdvReac Mild redness/itching/localized Verified 04/22/24 13:55 swelling amlodipine [From Norvasc] AdvReac leg Verified 04/22/24 13:55 swelling chlorthalidone AdvReac vomiting, Verified 04/22/24 13:55 diarrhea hydrochlorothiazide AdvReac vomiting, Verified 04/22/24 13:55 diarrhea Home Medications Medication Instructions Recorded Confirmed Type lorazepam 2 mg tablet 2 mg PO HS anxiety 06/05/18 04/22/24 History clotrimazole 1 % topical cream 1 applic topical BID PRN flare 02/11/23 04/22/24 History famotidine 20 mg tablet 20 mg PO PM 02/11/23 04/22/24 History pantoprazole 40 mg tablet,delayed 40 mg PO QAM 02/11/23 04/22/24 History release silver sulfadiazine 1 % topical 1 applic topical DAILY PRN Other 02/11/2305/04 History cream rimegepant 75 mg disintegrating 75 mg PO ONCE PRN Migraine Headache 02/25/23 04/22/24 History tablet (Nurtec ODT) potassium chloride 20 mEq oral 20 meq PO QAM #30 ea 04/02/23 04/22/24 Rx packet spironolactone 25 mg tablet 25 mg PO QAM #30 tabs 04/02/23 04/22/24 Rx losartan 25 mg tablet 25 mg PO DAILY 09/24/23 04/22/24 History carvedilol 6.25 mg tablet 6.25 mg PO BID #180 tabs 10/01/23 04/22/24 Rx gabapentin 250 mg/5 mL oral 500 mg PO UD 10/01/23 04/22/24 History solution azelastine 137 mcg (0.1 %) nasal 1 spray intranasal DAILY PRN 01/22/24 04/22/24 History spray Allergy Symptoms loratadine 5 mg/5 mL oral solution 5 ml PO BID 01/22/24 04/22/24 History (Children's Claritin) multivitamin with minerals-folic 1 tab PO DAILY 04/22/24 04/22/24 History acid 200 mcg chewable tablet (Multivitamin Gummies) ondansetron 4 mg disintegrating 4 mg PO Q6H PRN Nausea And Vomiting 04/22/24 04/22/24 History tablet Past Med/Surg History Problem List (Updated 04/22/24 @ 15:49 by Dalia Hdez PA-C) Left-sided chest pain Diarrhea (Acute) Encounter for annual routine gynecological examination Hyperacusis of both ears Rhinitis TMJ (temporomandibular joint syndrome) Hyperaldosteronism Hyperkinetic heart disease LVH (left ventricular hypertrophy) due to hypertensive disease New onset of headaches after age 48 Post-nasal drainage Hypertension (Chronic) Migraine (Chronic) Fracture of tibial plateau, closed (Acute) History of decompression of ulnar nerve (Chronic) x 3 Insomnia (Chronic) Osteoporosis (Chronic) GERD (gastroesophageal reflux disease) no meds at present; reason for EGD TIA (transient ischemic attack) (Acute) denies Left knee pain Hyperextension injury of left knee Painful orthopaedic hardware Colon cancer screening Encounter for cosmetic procedure Globus sensation Medical History Esophageal dysphagia Hematuria, microscopic Interstitial cystitis Closed fracture of tibial plateau Difficulty in swallowing Postoperative nausea History of esophageal dilatation Fibromyalgia 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 PREVIOUSLY TOLD AT [facility] AND [facility]. 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 Other Cancer Heart disease Hypertension No family history of adverse response to anesthesia No family history of bleeding disorder Denies family history of Ovarian cancer Prostate cancer Colorectal cancer Social History Smoking Status: Never smoker Second Hand Exposure: No; Do You Dip or Chew Tobacco: No; Hx Alcohol Use: No Hx Substance Use: No Preferred Language: Turkmen Communication Ability: Effective Visual Impairment: No Limitations Inside Sales Agent Required: No Beliefs That Will Affect Care: None marital status: Current Living Situation: Alone Other Information That Helps Us Care for You: No Feels Safe at Home: Yes Safety Concerns: Feels Safe At This Time caffeine: No Dental Care, Regularly: Yes Physical Activity Frequency: Daily Seatbelt Use: always Sunscreen Use: Yes Assistive Devices: Cane and Walker Review of Systems Review of Systems: All systems reviewed & are unremarkable except as noted in HPI & below Physical Exam Physical Exam: please refer to Dr. Soni addendum for physical exam findings. Results & Data Results & Data Vital Signs (Past 12 Hours) Vital Signs Temp Pulse Pulse Resp BP BP Pulse Ox 04/22/24 12:05 36.9 C 77 20 166/95 H 98 04/22/24 12:05 98 04/22/24 11:46 36.3 C L 72 18 161/91 H 98 O2 Del Method 04/22/24 12:05 Room Air 04/22/24 12:05 Room Air 04/22/24 11:46 Room Air Laboratory Results I have independently reviewed and interpreted patient's admitting labs including CBC, CMP, trop, resp biofire Diagnostic Findings Chest X-Ray 04/22/24 12:37 XR chest 1V portable CLINICAL HISTORY: chest pressure TECHNIQUE: Single frontal radiograph of the chest was obtained. Comparison: Comparison is made to chest radiograph 04/02/2023 FINDINGS: No lines and tubes are seen. The cardiomediastinal silhouette is normal. The lungs are clear. No evidence of pleural effusion or pneumothorax. IMPRESSION: No acute chest disease. ACT 112: Negative or not required by law. Electronically signed by: Ayan Ricardo M.D. 04/22/2024 12:59 PM Medications Administered Medication List Discontinued Medications Aspirin (Aspirin Chew 324 Mg) 324 mg PO NOW STA Stop: 04/22/24 14:37 Last Admin: 04/22/24 14:44 Dose: 324 mg Documented By: ALEXUS Sodium Chloride (Nss) 500 mls @ 999 mls/hr IV .Q31M ONE Stop: 04/22/24 12:38 Last Infusion: 04/22/24 12:56 Dose: Infused Documented By: Admin: 04/22/24 12:20 Dose: 999 mls/hr Documented By: CAW ECG Additional Comments: I have independently reviewed and interpreted patient's admitting EKG which revealed: NSR 69 bpm, qtc 411ms, no st or t wave changes COVID-19 Results Results COVID-19 Adm Lab Results: RBC 4.49 M/uL (4.20-5.40) 04/22/24 WBC 5.61 K/ul (4.8-10.8) 04/22/24 Hgb 13.0 g/dl (12.0-16.0) 04/22/24 Hct 38.2 % (37.0-47.0) 04/22/24 Plt Count 225 K/uL (130-400) 04/22/24 Neutrophils (%) (Auto) 70.0 % 04/22/24 Lymphocytes (%) (Auto) 18.9 % 04/22/24 Monocytes # (Auto) 0.52 K/uL (0.11-0.59) 04/22/24 Immature Granulocyte % (Auto) 0.2 % 04/22/24 Neutrophils # (Auto) 3.93 K/uL (1.40-6.50) 04/22/24 Lymphocytes # (Auto) 1.06 K/uL (1.20-3.40) L 04/22/24 Monocytes # (Auto) 0.52 K/uL (0.11-0.59) 04/22/24 Basophils # (Auto) 0.02 K/uL (0.00-0.20) 04/22/24 Immature Granulocyte # (Auto) 0.01 K/uL (0.01-0.20) 4 Na 138 mmol/L (136-145) 04/22/24 K 3.8 mmol/L (3.5-5.1) 04/22/24 Cl 102 mmol/L (98-107) 04/22/24 CO2 31 mmol/L (21-32) 04/22/24 Anion Gap 5 (3-11) 04/22/24 BUN 6 mg/dl (6-23) 04/22/24 Creatinine 0.74 mg/dl (0.6-1.2) 04/22/24 BUN/Creatinine Ratio 8.1 (10-20) L 04/22/24 Glucose Level 81 mg/dl (70-99(Fasting)) 04/22/24 Ca 9.8 mg/dl (8.6-10.3) 04/22/24 Total Bilirubin 0.8 mg/dl (0.2-1.0) 04/22/24 AST/SGOT 20 U/L (13-39) 04/22/24 ALT/SGPT 12 U/L (7-52) 04/22/24 Alkaline Phosphatase 56 U/L (34-104) 04/22/24 Total Protein 7.2 gm/dl (6.0-8.3) 04/22/24 Albumin 4.3 gm/dl (3.4-5.0) 04/22/24 Globulin 2.9 gm/dl (2.5-4.0) 04/22/24 Albumin/Globulin Ratio 1.5 (0.9-2) 04/22/24 Adenovirus (PCR) Not Detected (NotDetected) 04/22/24 B. parapertussis DNA (PCR) Not Detected (NotDetected) 04/11 07/05 B. pertussis DNA (PCR) Not Detected (NotDetected) 04/22/24 C. pneumoniae DNA (PCR) Not Detected (NotDetected) 4 Coronavirus Type OC43 (PCR) Not Detected (NotDetected) 05/04 Coronavirus Type HKU1 (PCR) Not Detected (NotDetected) 05/04 Coronavirus Type 229E (PCR) Not Detected (NotDetected) 05/04 COVID-19 PCR Not Detected (NotDetected) 04/22/24 Coronavirus Type NL63 (PCR) Not Detected (NotDetected) 05/04 Human Metapneumovirus (PCR) Not Detected (NotDetected) 05/04 Influenza Virus Type A (PCR) Not Detected (NotDetected) Influenza Virus Type B (PCR) Not Detected (NotDetected) M. pneumoniae (PCR) Not Detected (NotDetected) 04/22/24 Parainfluenza Type 1 (PCR) Not Detected (NotDetected) 04/11 07/05 Parainfluenza Type 2 (PCR) Not Detected (NotDetected) 04/11 07/05 Parainfluenza Type 3 (PCR) Not Detected (NotDetected) 04/11 07/05 Parainfluenza Type 4 (PCR) Not Detected (NotDetected) 04/11 07/05 RSV (PCR) Not Detected (NotDetected) 04/22/24 Enterovirus/Rhinovirus (PCR) Not Detected (NotDetected) Chest X-Ray 04/22/24 Code Status & VTE Plan Code Status full code VTE Prophylaxis Plan VTE Prophylaxis will be ordered: Yes Supervising Physician Co-Signing Physician Notes Patient is a 64-year-old female with history of hypertension, GERD, migraines and other medical problems presents with left-sided chest pain which started this morning. Chest pain is dull aching, only last for few minutes, nonradiating. She denies any associated shortness of breath, diaphoresis, dizziness. She has been having diarrhea which she attributes to recent Keflex use for left second toe ingrowing toenail removal. She admits to have belching but denies any nausea, vomiting, abdominal pain. Please review HPI for complete details of presentation. I personally reviewed blood work and imaging studies. Stool studies negative for infectious process. BioFire negative. EKG showed no signs of acute ischemia. Initial troponin negative. Blood pressure slightly elevated while in ED. Physical Exam: Vitals signs as noted above General Appearance:Moderately built and nourished, no apparent distress Head: normocephalic, Atraumatic Eyes: normal inspection, EOMI Neck: supple, Trachea midline Respiratory/Chest: Normal breath sounds, CTA, No accessory muscle use Cardiovascular: S1, S2, No murmur Abdomen/GI:Soft, Non tender, Bowel sounds present Extremities/Musculoskeletal:normal inspection, no edema, Left 2nd toe in dressing Neurologic/Psych:AAOX3, grossly no focal neurological deficits Skin: normal color, warm Chest pain rule out ACS DD: GERD Hypertension, elevated BP likely situational Diarrhea likely secondary to recent Keflex use H/O lactose intolerance Agree with ACS workup as above Cardiology consulted Stool studies negative Imodium as needed Monitor and adjust antihypertensives as needed I personally interviewed and examined at bedside. Patient's care is coordinated with Dalia Hdez PA-C. I have reviewed the advanced practitioner's documentation, and I agree with plan of care. Please refer to the documentation above for details of patient's presentation and for discussion of other issues. I spent a total [id number] coordinating, documenting, and providing care for this patient excluding time spent in the performance of separately billed services. (3) Hypertension Hypertension type: essential hypertension Qualified Code(s): I10 - Essential (primary) hypertension
[2024-04-22] MEDS ORDERED: FAMOTIDINE 20 MG TAB PO PRN (16:03)
[2024-04-22] MEDS ORDERED: POLYETHYLENE (MIRALAX) 17 GM PACK PO PRN (16:03)
[2024-04-22] MEDS ORDERED: ACETAMINOPHEN 325 MG TAB PO PRN (16:03)
[2024-04-22] MEDS ORDERED: ONDANSETRON INJ 2 MG/ML 2 ML VIAL IV PRN (16:03)
[2024-04-22 16:37] LABS: Adenovirus F 40/41 PCR Not Detected (NotDetected); Astrovirus PCR Not Detected (NotDetected); Campylobacter PCR Not Detected (NotDetected); Cryptosporidium PCR Not Detected (NotDetected); Cyclospora cayetanensis PCR Not Detected (NotDetected); Entamoeba histolytica PCR Not Detected (NotDetected); Enteroaggregative E.coli(EAEC) Not Detected (NotDetected); Enteropathogenic E.coli (EPEC) Not Detected (NotDetected); Enterotoxigenic E.coli (ETEC) Not Detected (NotDetected); Giardia lamblia PCR Not Detected (NotDetected); Norovirus GI/GII PCR Not Detected (NotDetected); Plesiomonas shigelloides PCR Not Detected (NotDetected); Rotavirus A PCR Not Detected (NotDetected); Salmonella PCR Not Detected (NotDetected); Sapovirus PCR Not Detected (NotDetected); Shiga-like Toxin E.coli (STEC) Not Detected (NotDetected); Shigella/Enteroinvasive E.coli Not Detected (NotDetected); Vibrio cholerae PCR Not Detected (NotDetected); Vibrio species PCR Not Detected (NotDetected); Yersinia enterocolitica PCR Not Detected (NotDetected)
[2024-04-22] MEDS: FAMOTIDINE 20MG IV PUSH 20 MG/5 ML SYR IV STA (16:47)
[2024-04-22] MEDS ORDERED: LOPERAMIDE HCL 2 MG CAP PO PRN (16:59)
[2024-04-22] MEDS: LORazepam 1 MG TAB PO SCH (20:44)
[2024-04-22] MEDS: carvediloL 6.25 MG TAB PO SCH (20:45)
[2024-04-22] MEDS: FAMOTIDINE 20 MG TAB PO SCH (20:45)
[2024-04-22] MEDS: LORATADINE 1 MG/1 ML PO SCH (20:46)
[2024-04-22] MEDS: GABAPENTIN 250 MG/5 ML 470 ML BTL PO SCH (20:50)
[2024-04-22] MEDS ORDERED: MELATONIN 3 MG TAB PO PRN (21:00)
[2024-04-23 06:45] LABS: Hematocrit (blood only) 36.7 % (37.0-47.0); Hemoglobin 12.7 g/dl (12.0-16.0); Mean Corpuscular Hemoglobin 29.3 pg (25.0-34.0); Mean Corpuscular Hgb Conc 34.6 g/dL (32.0-36.0); Mean Corpuscular Volume 84.6 fL (80.0-100.0); Mean Platelet Volume 9.8 fL (9.4-12.4); Platelet Count 204 K/uL (130-400); RDW Coefficient of Variation 12.8 % (11.5-14.5); Red Blood Count 4.34 M/uL (4.20-5.40); White Blood Count 4.25 K/ul (4.8-10.8)
[2024-04-23 07:02] LABS: Anion Gap 8 (3-11); BUN Creatinine Ratio 9.7 (10-20); Blood Urea Nitrogen 7 mg/dl (6-23); Calcium 9.4 mg/dl (8.6-10.3); Carbon Dioxide 28 mmol/L (21-32); Chloride 105 mmol/L (98-107); Chol HDL Ratio 3.6 (0-5); Cholesterol 214 mg/dl (0-200); Creatinine Clr Calc Pharmacy 66.4 ml/min; Glucose 94 mg/dl (70-99(Fasting)); HDL Cholesterol 59 mg/dl; LDL Cholesterol Calculated 139 mg/dl; Potassium 3.7 mmol/L (3.5-5.1); Sodium 141 mmol/L (136-145); Triglycerides 80 mg/dl (0-150); VLDL Cholesterol 16 mg/dl (0-30)
[2024-04-23 07:08] LABS: Troponin I High Sensitivity 2.4 pg/ml (0-14)
[2024-04-23 07:33] LABS: Estimated Average Glucose 105 mg/dl; Hemoglobin A1C 5.3 % (4.5-5.6)
[2024-04-23 07:34] VITALS: RESP 18
[2024-04-23] MEDS: GABAPENTIN 250 MG/5 ML 470 ML BTL PO SCH (08:50)
[2024-04-23 09:30] LABS: C Reactive Protein < 0.50 mg/dl (0-0.5)
--- NOTE | 2024-04-23 10:17 | Cardiology Consultation ---
Date of Consultation April 23, 2024 Assessment & Plan (1) Left-sided chest pain: Serial EKG tracings are normal. High-sensitivity troponin undetectable x 4 measurements in the last 24 hours and 1/5 measurement obtained on 04/20/2024 was also normal. The patient has a history of invasive coronary angiography that took place in March, with angiographically normal coronary arteries. At this time, I think the workup including normal resting echo, serial normal EKG tracings and serial normal high-sensitivity troponin levels is reassuring. No further cardiac workup is felt to be indicated at present. With regards to the pericardial effusion. This is a chronic finding for the patient. Perhaps slightly more prominent adjacent to the right ventricular free wall, however alternatively, this area may have just been better imaged today. This was been seen on previous echocardiogram studies for the last few years. I had added on inflammatory markers including a CRP and erythrocyte sedimentation rate which were both normal. No additional imaging or treatment felt to be indicated at present. (2) Diarrhea: Perhaps antibiotic related diarrhea. C. difficile negative thus far x 2 samples. Defer to the admitting team for further evaluation and treatment. (3) Hypertension: Patient states her blood pressure has been well-controlled at home. Continue outpatient treatment with carvedilol 6.25 mg p.o. twice daily, losartan 25 mg daily, spironolactone 25 mg daily. If patient remains in hospital consider adding pharmacologic DVT prophylaxis. --Cardiology to sign off. Please call with questions or concerns. History of Present Illness Attending Physician: Devendra Recinos MD History of Present Illness Esther Gil Is a 64-year-old female seen in cardiology consultation per the request of Dalia Hdez PA-C for the evaluation of chest discomfort. Patient is well-known to the undersigned as I have seen her on inpatient and outpatient basis in the past. She has a past history of difficult to control hypertension. She had been admitted a year ago in March, with hypertensive urgency. At that time she described chest discomfort and on review of systems. She had undergone a nuclear stress test with findings of apical ischemia and went on to have invasive coronary angiography on 04/01/2023 with angiographically normal coronary arteries. Stress test results were felt to be a false positive at that time. The patient states that as of recently she has been doing well from a cardiac perspective. She has been walking without any chest discomfort or shortness of breath. She had recently been following with her primary care provider with regards to an ingrown toenail on her left second toe. This has been addressed in the office over the procedure most recently on 04/19/2024. She recalls having a recent course of Keflex 6 weeks ago and completed a recent course of complex 5 days ago. 5 days ago she started noticing diarrhea prompting an evaluation in the emergency department. The patient was tested for C. difficile on 04/20/2024 and it was negative. Yesterday she had ongoing worsening diarrhea and also noted vague pressure in her chest on review of systems that since has improved. Follow-up stool studies today including repeat C. difficile toxin are negative. Allergies Allergy/AdvReac Type Severity Reaction Status Date / Time chocolate flavor Allergy Severe HIVES Verified 04/22/24 13:55 diphenhydramine Allergy Intermediate CHEST Verified 04/22/24 13:55 PAIN, TACHYCARDIA oxycodone Allergy Intermediate hives Verified 04/22/24 13:55 tetracycline Allergy Mild HIVES Verified 04/22/24 13:55 acetaminophen [From Lavonia] Allergy Verified 04/22/24 13:55 atorvastatin [From Lipitor] Allergy Verified 04/22/24 13:55 clopidogrel [From Plavix] AdvReac Severe facial Verified 04/22/24 13:55 rash & chest pain hydrocodone [From Lavonia] AdvReac Intermediate ITCHING, Verified 04/22/24 13:55 WELTS [id number]-ISP-LlF Reductase AdvReac Intermediate myalgia in Verified 04/22/24 13:55 Inhibitor legs [Meokwje-Wot-Ncc Reductase Inhibitor] codeine AdvReac Mild HEADACHES Verified 04/22/24 13:55 latex AdvReac Mild redness/itching/localized Verified 04/22/24 13:55 swelling amlodipine [From Norvasc] AdvReac leg Verified 04/22/24 13:55 swelling chlorthalidone AdvReac vomiting, Verified 04/22/24 13:55 diarrhea hydrochlorothiazide AdvReac vomiting, Verified 04/22/24 13:55 diarrhea Home Medications Medication Instructions Recorded Confirmed Type lorazepam 2 mg tablet 2 mg PO HS anxiety 06/05/18 04/22/24 History clotrimazole 1 % topical cream 1 applic topical BID PRN flare 02/11/23 04/22/24 History famotidine 20 mg tablet 20 mg PO PM 02/11/23 04/22/24 History pantoprazole 40 mg tablet,delayed 40 mg PO QAM 02/11/23 04/22/24 History release silver sulfadiazine 1 % topical 1 applic topical DAILY PRN Other 02/11/2305/04 History cream rimegepant 75 mg disintegrating 75 mg PO ONCE PRN Migraine Headache 02/25/23 04/22/24 History tablet (Nurtec ODT) potassium chloride 20 mEq oral 20 meq PO QAM #30 ea 04/02/23 04/22/24 Rx packet spironolactone 25 mg tablet 25 mg PO QAM #30 tabs 04/02/23 04/22/24 Rx losartan 25 mg tablet 25 mg PO DAILY 09/24/23 04/22/24 History carvedilol 6.25 mg tablet 6.25 mg PO BID #180 tabs 10/01/23 04/22/24 Rx gabapentin 250 mg/5 mL oral 500 mg PO UD 10/01/23 04/22/24 History solution azelastine 137 mcg (0.1 %) nasal 1 spray intranasal DAILY PRN 01/22/24 04/22/24 History spray Allergy Symptoms loratadine 5 mg/5 mL oral solution 5 ml PO BID 01/22/24 04/22/24 History ([facility]) multivitamin with minerals-folic 1 tab PO DAILY 04/22/24 04/22/24 History acid 200 mcg chewable tablet (Multivitamin Gummies) ondansetron 4 mg disintegrating 4 mg PO Q6H PRN Nausea And Vomiting 04/22/24 04/22/24 History tablet Patient History Medical History Esophageal dysphagia Hematuria, microscopic Interstitial cystitis Closed fracture of tibial plateau Difficulty in swallowing Postoperative nausea History of esophageal dilatation Fibromyalgia 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 PREVIOUSLY TOLD AT [facility] AND [facility]. 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 Other Cancer Heart disease Hypertension No family history of adverse response to anesthesia No family history of bleeding disorder Denies family history of Ovarian cancer Prostate cancer Colorectal cancer Social History Smoking Status: Never smoker Second Hand Exposure: No; Do You Dip or Chew Tobacco: No; Hx Alcohol Use: No Hx Substance Use: No Preferred Language: Mosotho Communication Ability: Effective Visual Impairment: No Limitations Compliance Spec Required: No Beliefs That Will Affect Care: None marital status: Current Living Situation: Alone Other Information That Helps Us Care for You: No Feels Safe at Home: Yes Safety Concerns: Feels Safe At This Time caffeine: No Dental Care, Regularly: Yes Physical Activity Frequency: Daily Seatbelt Use: always Sunscreen Use: Yes Assistive Devices: Cane and Walker Review of Systems Review of Systems: All systems reviewed & are unremarkable except as noted in HPI & below Physical Exam Physical Exam: Temp Pulse Resp BP Pulse Ox O2 Del Method 36.6 C 72 18 150/80 H 98 Room Air 04/23/24 07:31 04/23/24 07:31 04/23/24 07:31 04/23/24 07:31 04/23/24 07:31 04/23/24 07:31 General: no acute distress and stated age Eyes: conjunctiva are pink and non-injected, sclera clear Neck: normal jugular venous pulse, no hepatojugular reflux Chest: normal shape and normal respiratory effort Lungs: clear to auscultation and percussion Cardiac Exam: - regular heart sounds, no murmurs, rubs, or gallops, no jugular venous distention Abdomen: abdomen soft, non-tender, no abnormal masses and no hepatosplenomegaly Extremities: no edema and no cyanosis Neuro:awake, conversant, follows commands, no focal motor deficits Results & Data Vital Signs (Past 12 Hours) Vital Signs Temp Pulse Pulse Resp BP Pulse Ox O2 Del Method 04/23/24 07:31 36.6 C 72 18 150/80 H 98 Room Air 04/23/24 07:30 67 04/23/24 02:43 36.6 C 70 16 122/70 99 Room Air 04/22/24 23:16 36.4 C L 69 18 137/78 98 Room Air Laboratory Results Cardiac Enzymes 04/22/24 04/22/24 04/22/24 Range/Units 12:00 15:44 21:43 AST 20 (13-39) U/L Troponin I High Sens < 2.3 < 2.3 2.7 (0-14) pg/ml 04/23/24 Range/Units 06:02 AST (13-39) U/L Troponin I High Sens 2.4 (0-14) pg/ml Lipids 04/23/24 Range/Units 06:02 Triglycerides 80 (0-150) mg/dl Cholesterol 214 H (0-200) mg/dl HDL Cholesterol 59 mg/dl Cholesterol/HDL Ratio 3.6 (0-5) LDL cholesterol 139 mg/dL, 04/23/2024 CBC 04/22/24 04/23/24 Range/Units 12:00 06:02 WBC 5.61 4.25 L (4.8-10.8) K/ul RBC 4.49 4.34 (4.20-5.40) M/uL Hgb 13.0 12.7 (12.0-16.0) g/dl Hct 38.2 36.7 L (37.0-47.0) % Plt Count 225 204 (130-400) K/uL Neut # (Auto) 3.93 (1.40-6.50) K/uL Lymph # (Auto) 1.06 L (1.20-3.40) K/uL [place] # (Auto) 0.52 (0.11-0.59) K/uL Eos # (Auto) 0.07 (0.00-0.50) K/uL Baso # (Auto) 0.02 (0.00-0.20) K/uL Comprehensive Metabolic Panel 04/22/24 04/23/24 Range/Units 12:00 06:02 Sodium 138 141 (136-145) mmol/L Potassium 3.8 3.7 (3.5-5.1) mmol/L Chloride 102 105 (98-107) mmol/L Carbon Dioxide 31 28 (21-32) mmol/L BUN 6 7 (6-23) mg/dl Creatinine 0.74 0.72 (0.6-1.2) mg/dl Glucose 81 94 (70-99(Fasting)) mg/dl Calcium 9.8 9.4 (8.6-10.3) mg/dl AST 20 (13-39) U/L ALT 12 (7-52) U/L Alkaline Phosphatase 56 (34-104) U/L Total Protein 7.2 (6.0-8.3) gm/dl Albumin 4.3 (3.4-5.0) gm/dl Intake and Output 04/22/24 04/23/24 04/23/24 22:59 06:59 14:59 Other: # Unmeasured Voids 2 3 Weight 59.5 kg 59.6 kg Weight Measurement Method Chair Scale Built in [facility] C-reactive protein normal at less than 0.05 mg/dL Erythrocyte sedimentation rate normal at 14 mm/h EKG tracing dated 04/20/2024 at 9:39 AM and interpret independently: Sinus rhythm at 74 bpm. Low voltage otherwise normal EKG. Two subsequent tracings performed on 04/22/2024 and 04/23/[address] segments. Diagnostic Findings Echocardiogram performed today 04/23/2024 and interpreted independently: Normal left ventricular myocardial thickness, normal LV wall motion without regional wall motion abnormalities, the calculated biplane left ventricular ejection fraction equals 65%, grade 2 diastolic dysfunction, no significant valvular disease, there is a small circumferential pericardial effusion without tamponade. Compared to the images obtained at the time of the previous study dated 03/25/2023 the amount of pericardial fluid is slightly increased with no significant amount of focal fluid collection adjacent to the right ventricular free wall and the apical four-chamber. (3) Hypertension Hypertension type: essential hypertension Qualified Code(s): I10 - Essential (primary) hypertension
[2024-04-23 11:27] VITALS: O2SAT 97
[2024-04-23] MEDS: POTASSIUM CHLORIDE PWD 20 MEQ PACK PO SCH (11:27)
[2024-04-23] MEDS: SPIRONOLACTONE 25 MG TAB PO SCH (11:28)
[2024-04-23] MEDS: PANTOprazole 40 MG TAB PO SCH (11:28)
[2024-04-23] MEDS: LOSARTAN POTASSIUM 25 MG TAB PO SCH (11:28)
[2024-04-23] MEDS: ADVANCED PROBIOTIC 625 MG CAPSULE PO SCH (11:28)
--- NOTE | 2024-04-23 12:23 | Electrocardiogram Report ---
Test Reason : Blood Pressure : */* mmHG Vent. Rate : 66 BPM Atrial Rate : 66 BPM P-R Int : 168 ms QRS Dur : 82 ms QT Int : 434 ms P-R-T Axes : 80 47 79 degrees QTcB Int : 454 ms Normal sinus rhythm Low voltage QRS Borderline ECG When compared with ECG of 22-Apr-2024 11:55, No significant change was found Confirmed by Haim Díaz ([id number]) on 04/23/2024 12:23:33 PM Referred By: REFERRED SELF Confirmed By: Haim Díaz
[2024-04-23 15:02] VITALS: BP 131/78; TEMP 98.1
--- NOTE | 2024-04-23 16:35 | Discharge Summary ---
Discharge Summary Date of Service April 23, 2024 Principal Dx & Hospital Course #1 = Principal Diagnosis (1) Left-sided chest pain: (2) Diarrhea: (3) Hypertension: Plan Per admitting service notes with addendum: This is a 64-year-old female who has a significant past medical history of HTN, osteoporosis, migraines, GERD who presents to hospital secondary to experiencing left-sided chest pain that started approximately 530 this morning. Left sided chest pain Acute coronary syndrome ruled out Troponins negative x 3 EKG: No signs of acute ischemia or infarct Echocardiogram: No regional wall motion abnormalities Grade 2 diastolic dysfunction Coronary angiography March 2023: Normal coronary arteries Evaluated by Dr. Gordon, cardiology service No further testing at this point Pericardial effusion noted on echo is a chronic finding suspect pt sx are likely GI related given ongoing diarrheal illness and missed pepcid dose Diarrheal Illness recently completed course of keflex, could be ADR vs viral vs cdiff Biofire stool panel and cdiff : Negative Diarrhea resolved Advised to take probiotic daily for at least a month given recent courses of antibiotics HTN Initially, blood pressure was elevated, improved Continue usual regimen DVT ppx: SCDS for now, if to remain hospitalized > 24hrs would add chemical ppx FULL CODE PCP: Karolina Carranza Dispo: Discharge to home Follow-up with PCP in 1 week Notes For Next Care Provider Medication Changes From Visit Probiotics daily Admission HPI Per Admitting Provider This is a 64-year-old female who has a significant past medical history of HTN, osteoporosis, migraines, GERD who presents to hospital secondary to experiencing left-sided chest pain that started approximately 530 this morning. She reports episode of chest pain this morning. The pain started after she woke up this morning. Around 5:30 a.m. she felt a left sided pressure. These sx were off and on all morning. It would typically last a few minutes. She describes it as dull aching. She denies any radiation of pain. Nothing made the pain better or worse. She denies any associated SOB, diaphoresis, lightheaded, dizziness or cough. She did not take her pepcid last night. She typically takes it every night. This morning she did have some episodes of belching. Pt reports off and on diarrhea over the last several days. Her diarrhea is very loose and watery. She denies any nausea, vomiting or abd pain. She reports being in her normal state of health until her diarrhea started 3 days ago. She is lactose intolerant and does avoid dairy products. She is having 10 + BM daily. Also of note patient recent completed outpatient course of Keflex for 5 days due to infection on her toe. One yr ago she was hospitalized due to chest pain. Her stress test was positive and she underwent a cardiac cath which revealed normal coronary arteries. Her sx today feel different then last year. She reports having chronic difficulty swallowing. She usually has to crush her pills unless they are really small. She can eat normal food, but she makes sure she really chews her food and she is careful what she eats. In ED patient remained hemodynamically stable. Her initial troponin was unremarkable. Her EKG was without acute ischemic changes. Admission Exam Per Admitting Provider General Appearance:Moderately built and nourished, no apparent distress Head: normocephalic, Atraumatic Eyes: normal inspection, EOMI Neck: supple, Trachea midline Respiratory/Chest: Normal breath sounds, CTA, No accessory muscle use Cardiovascular: S1, S2, No murmur Abdomen/GI:Soft, Non tender, Bowel sounds present Extremities/Musculoskeletal:normal inspection, no edema, Left 2nd toe in dressing Neurologic/Psych:AAOX3, grossly no focal neurological deficits Skin: normal color, warm Discharge Exam General- oriented x 3, not in distress, speaks in sentences with no effort or accessory muscle use Eyes- anicteric Neck- no JVD Lungs- clear breath sounds bilaterally, no rales/wheezes Heart- normal rate, regular rhythm; no murmurs Abdomen- normal bowel sounds, nondistended, soft, nontender Extremities- no pretibial edema, no calf tenderness Neuro- alert, oriented x 3; no gross focal neurologic deficits Skin- warm & dry Updated Medication List Medication Instructions Recorded Confirmed Type lorazepam 2 mg tablet 2 mg PO HS anxiety 06/05/18 04/22/24 History clotrimazole 1 % topical cream 1 applic topical BID PRN flare 02/11/23 04/22/24 History famotidine 20 mg tablet 20 mg PO PM 02/11/23 04/22/24 History pantoprazole 40 mg tablet,delayed 40 mg PO QAM 02/11/23 04/22/24 History release silver sulfadiazine 1 % topical 1 applic topical DAILY PRN Other 02/11/23 04/22/24 History cream rimegepant 75 mg disintegrating 75 mg PO ONCE PRN Migraine Headache 02/25/23 04/22/24 History tablet (Nurtec ODT) potassium chloride 20 mEq oral 20 meq PO QAM #30 ea 04/02/23 04/22/24 Rx packet spironolactone 25 mg tablet 25 mg PO QAM #30 tabs 04/02/23 04/22/24 Rx losartan 25 mg tablet 25 mg PO DAILY 09/24/23 04/22/24 History carvedilol 6.25 mg tablet 6.25 mg PO BID #180 tabs 10/01/23 04/22/24 Rx gabapentin 250 mg/5 mL oral 500 mg PO UD 10/01/23 04/22/24 History solution azelastine 137 mcg (0.1 %) nasal 1 spray intranasal DAILY PRN 01/22/24 04/22/24 History spray Allergy Symptoms loratadine 5 mg/5 mL oral solution 5 ml PO BID 01/22/24 04/22/24 History ([facility]) multivitamin with minerals-folic 1 tab PO DAILY 04/22/24 04/22/24 History acid 200 mcg chewable tablet (Multivitamin Gummies) ondansetron 4 mg disintegrating 4 mg PO Q6H PRN Nausea And Vomiting 04/22/24 04/22/24 History tablet Hospital Stay Data Consultations 04/22/24 14:37 ED Decision to Admit Stat 04/22/24 14:55 Consult Cardiology Routine Pending Results Patient Have Any Pending Studies at Discharge: No Discharge Instructions Given to Patient (Per Discharging Provider) PLEASE REFER TO YOUR NEW MEDICATION LIST AND FOLLOW INSTRUCTIONS CAREFULLY. YOUR NEW MEDICATIONS INCLUDE: Please take a probiotic daily for at least a month. PLEASE CALL YOUR PRIMARY CARE PHYSICIAN OR RETURN TO THE ER IF WITH WORSENING OF SYMPTOMS, INCLUDING Chest pain, shortness of breath, palpitations, dizziness, nausea/vomiting, persistent diarrhea, etc. FOLLOW UP WITH PRIMARY CARE PHYSICIAN next week as scheduled. Total Time Total Time Spent Total Time Spent (In Minutes): 45 minutes
[2024-04-23 16:36] VITALS: PULSE 66
== END 2024-04-23 17:24 | disposition home or self-care (01) ==
LOC: 2E 11:42 → ED 11:42 → SUATTDRO 14:40 → 2E 15:34